=== PATIENT | male | born 1950 | race Hispanic/Latino ===

== ENCOUNTER → 2019-03-16 | Emergency (ER) | payer SELFPAY ==
[~2019-03-16] VITALS: Ht 175.3 cm; Wt 96.2 kg
[~2019-03-16] MED LIST: KETOROLAC TROMETHAMINE 30 MG/ML VIAL IV ONE; LEVOFLOXACIN 500 MG TAB PO ONE; MEROPENEM 1GM 100 ML IV STA; MORPHINE SULFATE 2 MG/ML SYR 1ML IV STA; MORPHINE SULFATE INJ 4 MG/ML INJ 1ML IV ONE; ONDANSETRON HCL INJ 2MG/ML 2ML 2 MG/ML VIAL IV ONE; SODIUM CHLORIDE 0.9% 500ML 500 ML IV ONE
[2019-03-16 12:29] LABS: BASOPHILS % 0.3 % (0.0-1.0); EOSINOPHILS # (AUTO) 0.1 (0.0-0.4); EOSINOPHILS % 0.8 % (0.0-6.0); HEMATOCRIT 38.5 % (38.2-49.6); HEMOGLOBIN 13.7 g/dL (14.0-18.0); LYMPHOCYTES # (AUTO) 1.8 (1.0-3.2); LYMPHOCYTES % 19.6 % (18.0-39.1); MEAN CORPUSCULAR HEMOGLOBIN 32.2 pg (28-32); MEAN CORPUSCULAR HGB CONC 35.6 g/dL (31-35); MEAN CORPUSCULAR VOLUME 90.4 fL (81-99); MONOCYTES # (AUTO) 0.9 (0.2-0.8); MONOCYTES % 9.3 % (4.4-11.3); NEUTROPHILS # (AUTO) 6.4 (2.1-6.9); NEUTROPHILS % 69.7 % (38.7-80.0); PLATELET COUNT 242 x10e3/uL (140-360); RED BLOOD COUNT 4.26 x10e6/uL (4.3-5.7); RED CELL DISTRIBUTION WIDTH 12.4 % (11.7-14.4)
[2019-03-16 12:30] LABS: BILIRUBIN,URINE NEGATIVE (NEGATIVE); CLARITY,URINE CLOUDY (CLEAR); COLOR,URINE YELLOW (YELLOW); KETONES,URINE NEGATIVE (NEGATIVE); LEUKOCYTE ESTERASE ,URINE NEGATIVE (NEGATIVE); NITRITE,URINE NEGATIVE (NEGATIVE); PROTEIN,URINE DIPSTICK TRACE (NEGATIVE); URINE UROBILINOGEN 0.2 mg/dL (0.2 - 1)
[2019-03-16 12:47] LABS: BACTERIA,URINE MODERATE /HPF; EPITHELIAL CELLS,URINE MODERATE /LPF; RBC,URINE >50 /HPF (0-5); WBC,URINE (MAN) 21-50 /HPF (0-5)
[2019-03-16 12:48] LABS: ALANINE AMINOTRANSFERASE 17 IU/L (0-55); ALBUMIN 4.2 g/dL (3.5-5.0); ALBUMIN/GLOBULIN RATIO 1.3 (0.8-2.0); ALKALINE PHOSPHATASE 69 IU/L (40-150); ANION GAP 13.7 mmol/L (8-16); BLOOD UREA NITROGEN 11 mg/dL (7-26); BUN/CREATININE RATIO 12 (6-25); CALCIUM 9.8 mg/dL (8.4-10.2); CARBON DIOXIDE 25 mmol/L (22-29); CHLORIDE 103 mmol/L (98-107); CREATININE, SERUM 0.95 mg/dL (0.72-1.25); EST GLOMERULAR FILTRATION RATE > 60 ML/MIN (60-); GLUCOSE 126 mg/dL (74-118); POTASSIUM 3.7 mmol/L (3.5-5.1); SODIUM 138 mmol/L (136-145)
--- NOTE | 2019-03-16 14:02 | Diagnostic Imaging Report ---
CT of the abdomen and pelvis History: Right flank pain Comparison: None available. Technique: Multidetector CT scanning of the abdomen and pelvis was performed from the level of the lung bases to the inferior pubic ramus without contrast. DOSE REDUCTION: The examination was performed according to departmental dose-optimization program which includes automated exposure control, adjustment of the mA and/or kV according to patient size and/or use of iterative reconstruction technique. Discussion: The lung bases are clear. Lack of IV contrast limits evaluation of solid and hollow visceral organs. In the right hepatic lobe there is a 8 mm hypodensity which is too small to characterize but is most likely a cyst. No suspicious hepatic lesions are identified. The gallbladder is present nondistended. No radiopaque gallstones are identified. There is no intrahepatic or extrahepatic biliary dilatation. The spleen is within normal limits. The bilateral adrenal glands are unremarkable. There is no pancreatic ductal dilatation or peripancreatic inflammatory stranding. The kidneys are normal in size. No kidney stones are identified. There is no hydroureteronephrosis bilaterally. The stomach, small, and large bowel are nondistended. There is no evidence of obstruction. The appendix is normal in caliber. Scattered diverticula are present throughout the colon. There is no evidence of acute diverticulitis. There is no free intraperitoneal air or ascites. The abdominal aorta is of normal course and caliber. No enlarged abdominal or retroperitoneal lymph nodes are identified. The urinary bladder is within normal limits. The prostate is not enlarged. Multilevel degenerative changes of the thoracolumbar spine which are most pronounced at L4-L5 where there is grade 1 anterolisthesis of L4 on L5. IMPRESSION: 1. No evidence of nephroureterolithiasis. 2. Normal appendix. 3. Colonic diverticulosis without evidence of acute diverticulitis. Signed by: Sachin Putnam MD on 03/16/2019 1:59 PM
--- NOTE | 2019-03-16 15:14 | NUR ---
upon entering pt's room; pt stood up, said"i'm done with you people. you took too fucking long."pulled his iv out intact, threw it on the bed and walked out. Addendum: 03/16/19 at 1524 by JOSÉ pt's stated, "he's really pissed off 'cause it took so long, does he get any rx or paperwork?" she then stormed out of the room p her . charge nurse/dr. rickie cuellar
--- NOTE | 2019-03-19 15:53 | NUR ---
PATIENT CAME IN REQUESTING PAPER WORK FROM DISCHARGE. DIRECTED HIM TO MEDICAL RECORDS
== END | disposition home or self-care (01) ==
LOC: ER 11:18
DX: R10.31 Right lower quadrant pain (principal); R11.0 Nausea; R31.29 Other microscopic hematuria; N10 Acute pyelonephritis; N12 Tubulo-interstitial nephritis, not specified as acute or chronic; N39.0 Urinary tract infection, site not specified
CPT/HCPCS: 36415; 74176; 80053; 81001; 85025; 87086; 99284; J1885; J2270; J2405; J7040

== ENCOUNTER → 2019-03-24 | Outpatient (CLI) | payer MEDICARE ==
[~2019-03-24] MED LIST changes: +IOPAMIDOL 370 MG/ML 200 ML INFUS..BTL INJ ONE; -KETOROLAC TROMETHAMINE 30 MG/ML VIAL IV ONE; -LEVOFLOXACIN 500 MG TAB PO ONE; -MEROPENEM 1GM 100 ML IV STA; -MORPHINE SULFATE 2 MG/ML SYR 1ML IV STA; -MORPHINE SULFATE INJ 4 MG/ML INJ 1ML IV ONE; -ONDANSETRON HCL INJ 2MG/ML 2ML 2 MG/ML VIAL IV ONE; -SODIUM CHLORIDE 0.9% 500ML 500 ML IV ONE; +SODIUM CHLORIDE 0.9% 50ML 50 ML ONE
--- NOTE | 2019-03-24 16:10 | Diagnostic Imaging Report ---
HISTORY: Spermatocele of epididymis, right testicular pain COMPARISON : COMMENT : Ultrasound examination of the genitalia was performed. In addition, Color Doppler and spectral analysis of the testicles were also obtained. There are no prior films available for comparison. The right epididymal head measures 1.3 x 1.0 x 1.1 cm and contains a 0.3 x 0.3 x 0.3 cm epididymal head cyst. The right testis measures 4.6 x 1.9 x 3.2 cm and appears unremarkable. The testicle is homogeneous in echotexture. Normal flow is identified on color Doppler. The left epididymal head measures 1.2 x 0.7 x 1.2 cm mm and appears unremarkable. The left testis measures 4.0 x 2.0 x 3.1 cm and appears unremarkable. The testicles homogeneous in echotexture. Normal flow is identified on color Doppler. There is no evidence of varicoceles. Small bilateral hydroceles are present. IMPRESSION : 1. Right epididymal head cyst. 2. Small bilateral hydroceles. Signed by: Sachin Putnam MD on 03/24/2019 4:07 PM
--- NOTE | 2019-03-24 16:40 | Diagnostic Imaging Report ---
CT of the abdomen and pelvis History: Renal mass Comparison: CT dated 03/16/2019. Technique: Multidetector CT scanning of the abdomen and pelvis was performed from the level of the lung bases to the inferior pubic ramus, without and with IV contrast. Scanning during the noncontrast, arterial, venous, and delayed phases was performed. Renal mass protocol was utilized. DOSE REDUCTION: The examination was performed according to departmental dose-optimization program which includes automated exposure control, adjustment of the mA and/or kV according to patient size and/or use of iterative reconstruction technique. Discussion: The lung bases demonstrate minimal dependent atelectasis. An 8 mm cyst is identified in the right hepatic lobe. No suspicious hepatic lesions are identified. The gallbladder is nondistended. No gallstones are identified. There is no intrahepatic or extrahepatic ductal dilatation. The spleen is within normal limits. The lateral adrenal glands are unremarkable. The pancreas is normal in attenuation and enhances homogeneously. The pancreatic ductal dilatation is present. The kidneys are normal in size. The upper pole of the right kidney demonstrates decreased enhancement which may be secondary to an ischemic insult. On delayed phase images there is a paucity of contrast excretion from the upper pole of the right kidney. The lower pole of the kidney excretes contrast normally. There are no kidney stones. There is no right-sided hydronephrosis. The left kidney demonstrates normal enhancement and excretion. There is a 1.5 x 1.5 cm exophytic cyst arising from the lower pole of the left kidney. There are no kidney stones. There is no left-sided hydroureteronephrosis. No filling defects are identified along the course of either ureter. The abdominal aorta is of normal course and caliber. The celiac, SMA, and FAWN are patent. There is a single right renal artery is normal caliber. The left kidney is supplied by a normal caliber main renal artery and a small caliber accessory renal artery. No filling defects are identified in either renal artery. There is no evidence of renal artery stenosis. The stomach, small, and large bowel are nondistended. There is no evidence of obstruction. The appendix is normal. There are scattered colonic diverticula without evidence of acute diverticulitis. The urinary bladder is within normal limits. The prostate is not enlarged. There are no acute osseous abnormalities. Multilevel degenerative changes of the thoracolumbar spine are present. IMPRESSION: 1. Decreased perfusion of the upper pole of the right kidney which may be secondary to an ischemic/embolic insult. No filling defect is identified within the renal arteries. 2. No renal mass is identified in either kidney. 3. Left renal cyst. Signed by: Sachin Putnam MD on 03/24/2019 4:36 PM
== END ==
LOC: US 09:21
PROVIDERS: ATTEND Urology
DX: N43.40 Spermatocele of epididymis, unspecified (principal); D41.02 Neoplasm of uncertain behavior of left kidney
CPT/HCPCS: 74178; 76870; 93976; Q9967

== ENCOUNTER → 2019-05-17 | Outpatient (CLI) | payer MEDICARE ==
[~2019-05-17] MED LIST changes: +GADOBENATE DIMEGLUMINE 1 ML IV ONE; -IOPAMIDOL 370 MG/ML 200 ML INFUS..BTL INJ ONE
[2019-05-17 14:12] LABS: CREATININE, SERUM 1.36 mg/dL (0.72-1.25)
--- NOTE | 2019-05-19 10:54 | Diagnostic Imaging Report ---
MRI of the abdomen, with and without contrast, 05/17/2019. History: Left renal neoplasm. Comparison: CT 03/24/2019. Technique: Multiplanar, multisequence imaging of the abdomen was performed pre- and post-IV administration of gadolinium. Dynamic enhanced images of the kidneys were included. Discussion: The kidneys are normal in size and location bilaterally. There is no evidence of hydronephrosis. There is an approximately 4 cm ill-defined region of heterogeneity in the upper pole of the right kidney which on precontrast images is slightly hypointense on T1 and T2 weighted images but containing a 2 cm focus of hyperintensity, and postcontrast is heterogeneously hypointense compared to normal kidney on early and delayed phases. The renal artery is patent. A 1.5 cm oval circumscribed T1 hypointense T2 hyperintense nonenhancing cyst is seen arising from from the anterior aspect of the left kidney. No other lesions are seen within the left kidney. The liver, gallbladder, spleen, pancreas, and adrenal glands are normal in appearance. The visualized loops of bowel and osseous structures are normal. There is no evidence of adenopathy. IMPRESSION: 1. Simple benign exophytic left renal cyst. No follow-up recommended. 2..Right renal upper pole region of relatively hypovascular heterogeneous abnormal signal intensity. Although findings may be secondary to a combination of ischemic/embolic insult with a hemorrhagic cyst, an atypical infiltrating hypovascular neoplasm cannot be excluded. Consider renal ultrasound for further evaluation, short-term follow-up CT, or CT-guided biopsy of this region if there is high clinical suspicion. Signed by: Florentino Diaz on 05/19/2019 10:51 AM
== END ==
LOC: MRI 13:23
PROVIDERS: ATTEND Urology
DX: D41.02 Neoplasm of uncertain behavior of left kidney (principal)
CPT/HCPCS: 36415; 74183; 82565; 84520; A9577

== ENCOUNTER → 2019-05-26 | Outpatient (CLI) | payer MEDICARE ==
--- NOTE | 2019-05-26 15:09 | Diagnostic Imaging Report ---
Renal ultrasound, 05/26/2019. History: Right renal lesion. Comparison: MRI 05/17/2019, CT 03/24/2019. Discussion: Transverse and longitudinal images of the kidneys were obtained demonstrating normal renal sizes and echogenicities. There is no evidence of hydronephrosis or renal calculus. The right kidney measures 12.4 cm and the left kidney measures 11.8 cm in length. Renal cortex measures 2.7 and 2.0 cm respectively. An ill-defined heterogeneous hypoechoic area is noted in the right renal upper pole slightly distorting the renal sinus fat, measuring approximately 4 x 3.8 cm. This region is relatively hypovascular on color Doppler exam and corresponds to the area of abnormality identified on recent MRI and CT. An oval anechoic structure is seen arising from the lateral aspect of the left kidney measuring 2.1 x 1.5 x 1.8 cm. The urinary bladder is unremarkable. Bilateral ureteral jets are identified. Bladder volume measures 220 mL. There is no evidence of free fluid. IMPRESSION: 1. Ill-defined hypoechoic region in the right renal upper pole corresponding to the CT and MRI abnormalities. Renal neoplasm cannot be excluded. Recommend short-term follow-up scan or ultrasound-guided biopsy. Findings were discussed with the patient at the time of the exam. 2. Simple benign left renal cyst is noted. Signed by: Florentino Diaz on 05/26/2019 3:06 PM
== END ==
LOC: US 09:47
PROVIDERS: ATTEND Urology
DX: N28.9 Disorder of kidney and ureter, unspecified (principal)
CPT/HCPCS: 76770

== ENCOUNTER → 2019-06-30 | Outpatient (CLI) | payer MEDICARE ==
[~2019-06-30] MED LIST changes: +FENTANYL CITRATE/PF 100MCG/2 ML INJ ONE; -GADOBENATE DIMEGLUMINE 1 ML IV ONE; +MIDAZOLAM HCL 2 MG/2 ML VIAL ONE; -SODIUM CHLORIDE 0.9% 50ML 50 ML ONE
[2019-06-30 08:56] LABS: HEMOGLOBIN 13.3 g/dL (14.0-18.0)
[2019-06-30 09:08] LABS: INR 0.96; PROTHROMBIN TIME 13.4 seconds (11.9-14.5)
[2019-06-30 09:09] LABS: PARTIAL THROMBOPLASTIN TIME 40.6 seconds (23.8-35.5)
--- NOTE | 2019-06-30 13:32 | Diagnostic Imaging Report ---
PROCEDURE: Ultrasound-guided biopsy Procedural Personnel Attending physician(s): Riya Terrell MD Fellow physician(s): None Resident physician(s): None Advanced practice provider(s): None Pre-procedure diagnosis: Right renal mass Post-procedure diagnosis: Same Indication: Right renal mass on prior imaging Previous biopsy of same target (QCDR): No Additional clinical history: None Complications: No immediate complications. IMPRESSION: Ultrasound-guided biopsy of right upper renal mass. Plan: Specimen(s) sent for evaluation. PROCEDURE SUMMARY: - Percutaneous US-guided coaxial core needle biopsy - Additional procedure(s): None PROCEDURE DETAILS: Pre-procedure Reference imaging for biopsy target: None Consent: Informed consent for the procedure including risks, benefits and alternatives was obtained and time-out was performed prior to the procedure. Preparation: The site was prepared and draped using maximal sterile barrier technique including cutaneous antisepsis. Anesthesia/sedation Level of anesthesia/sedation: Moderate sedation (conscious sedation) Anesthesia/sedation administered by: Independent trained observer under attending supervision with continuous monitoring of the patient?s level of consciousness and physiologic status Total intra-service sedation time (minutes): 30 Imaging prior to biopsy The patient was positioned prone. Initial ultrasound was performed. Biopsy target: - Maximal diameter (cm): N/A - Location: Right upper kidney Other findings: None Biopsy Local anesthesia was administered. Under US guidance, the biopsy needle was advanced to the target and biopsy was performed. Coaxial needle: 17 gauge Core needle biopsy device: Kueski Core needle size: 18 gauge Number of core specimens: 3 Needle removal The biopsy needle was removed and a sterile dressing was applied. Tract embolization: None Imaging following biopsy Immediate post-biopsy ultrasound was performed. Post-biopsy imaging findings: No hematoma Additional Details Additional description of procedure: None Equipment details: None Specimens removed: Biopsy samples as detailed above Estimated blood loss (mL): Less than 10 Standardized report: [id number] Attestation Signer name: Riya Terrell MD I attest that I was present for the entire procedure. I reviewed the stored images and agree with the report as written. Signed by: Riya Terrell MD on 06/30/2019 1:29 PM
== END ==
LOC: CT 08:26
PROVIDERS: ATTEND Urology
DX: D41.01 Neoplasm of uncertain behavior of right kidney (principal)
CPT/HCPCS: 36415; 50200; 85014; 85049; 85610; 85730; 88305; J2250; J3010

== ENCOUNTER 2019-10-09 11:45 | Emergency (ER) | payer MEDICARE ==
[~2019-10-09] VITALS: Ht 175.3 cm; Wt 96.2 kg
[2019-10-09] MEDS ORDERED: SODIUM CHLORIDE 0.9% 1000ML 1,000 ML IV STA (12:26)
[2019-10-09] MEDS ORDERED: ONDANSETRON HCL INJ 2MG/ML 2ML 2 MG/ML VIAL IV STA (12:26)
[2019-10-09] MEDS ORDERED: MORPHINE SULFATE INJ 4 MG/ML INJ 1ML IV STA (12:26)
[2019-10-09 13:31] LABS: BASOPHILS % 0.5 % (0.0-1.0); EOSINOPHILS # (AUTO) 0.1 (0.0-0.4); EOSINOPHILS % 1.8 % (0.0-6.0); HEMATOCRIT 38.8 % (38.2-49.6); HEMOGLOBIN 12.8 g/dL (14.0-18.0); LYMPHOCYTES # (AUTO) 1.3 (1.0-3.2); LYMPHOCYTES % 21.3 % (18.0-39.1); MEAN CORPUSCULAR HEMOGLOBIN 29.8 pg (28-32); MEAN CORPUSCULAR VOLUME 90.4 fL (81-99); MONOCYTES # (AUTO) 0.5 (0.2-0.8); MONOCYTES % 8.3 % (4.4-11.3); NEUTROPHILS # (AUTO) 4.2 (2.1-6.9); NEUTROPHILS % 67.6 % (38.7-80.0); PLATELET COUNT 240 x10e3/uL (140-360); RED BLOOD COUNT 4.29 x10e6/uL (4.3-5.7); RED CELL DISTRIBUTION WIDTH 12.7 % (11.7-14.4)
[2019-10-09 13:42] LABS: INR 0.96; PROTHROMBIN TIME 13.3 seconds (11.9-14.5)
[2019-10-09 13:43] LABS: PARTIAL THROMBOPLASTIN TIME 36.3 seconds (23.8-35.5)
[2019-10-09 13:47] LABS: CLARITY,URINE SL CLOUDY (CLEAR); COLOR,URINE YELLOW (YELLOW); NITRITE,URINE NEGATIVE (NEGATIVE)
[2019-10-09 13:48] LABS: BACTERIA,URINE RARE /HPF; BILIRUBIN,URINE SMALL (NEGATIVE); EPITHELIAL CELLS,URINE RARE /LPF; KETONES,URINE NEGATIVE (NEGATIVE); LEUKOCYTE ESTERASE ,URINE TRACE (NEGATIVE); PROTEIN,URINE DIPSTICK >=300 (NEGATIVE); RBC,URINE 21-50 /HPF (0-5); URINE UROBILINOGEN 0.2 mg/dL (0.2 - 1)
[2019-10-09 13:51] LABS: ALBUMIN 4.2 g/dL (3.5-5.0); ALBUMIN/GLOBULIN RATIO 1.1 (0.8-2.0); ANION GAP 12.8 mmol/L (8-16); CALCIUM 10.1 mg/dL (8.4-10.2); CREATININE, SERUM 1.4 mg/dL (0.72-1.25); POTASSIUM 4.8 mmol/L (3.5-5.1)
[2019-10-09] MEDS ORDERED: SODIUM CHLORIDE 0.9% 250ML 250 ML ONE (14:02)
[2019-10-09] MEDS ORDERED: IOPAMIDOL 370 MG/ML 200 ML INFUS..BTL INJ ONE (14:02)
--- NOTE | 2019-10-09 15:56 | Diagnostic Imaging Report ---
EXAM: CT Abdomen and Pelvis WITHOUT and WITH intravenous contrast - Hematuria protocol INDICATION: Hematuria COMPARISON: Renal ultrasound 05/26/2019, CT abdomen and pelvis 03/24/2019, abdominal MRI of 05/17/2019 TECHNIQUE: Abdomen and pelvis were scanned utilizing a multidetector helical scanner from the lung base to the pubic symphysis before and after administration of IV contrast. Coronal and sagittal reformations were obtained. Hematuria protocol was used. Scan was performed prior to contrast administration and during portal venous phase. IV CONTRAST: 100 mL of Isovue 370 ORAL CONTRAST: Water COMPLICATIONS: None RADIATION DOSE: Total DLP: 1683 mGy*cm Dose modulation, iterative reconstruction, and/or weight based adjustment of the mA/kV was utilized to reduce the radiation dose to as low as reasonably achievable. FINDINGS: LOWER THORAX: 4 mm right lower lobe pulmonary nodule (axial image 17). HEPATOBILIARY: Heterogeneous hypodensity at the posterior dome of liver is new from prior cross sectional imaging. SPLEEN: No splenomegaly. PANCREAS: No focal masses or ductal dilatation. ADRENALS: No adrenal nodules. KIDNEYS/URETERS: No renal calculi. Hypoenhancing infiltrative process centered about the upper pole of the right kidney with heterogeneous appearance appears increased in size compared to the prior CT of 03/24/2019. PELVIC ORGANS/BLADDER: The prostate measures up to 4.7 x 4.2 x 4.5 cm (volume estimate 47cc) PERITONEUM / RETROPERITONEUM: New retroperitoneal lymphadenopathy measures up to 3.3 x 2.3cm (aortocaval, axial image 27) and 1.9 x 1.8 cm (immediately anterior to aorta, axial image 39). No free air or free fluid. VESSELS: Mild scattered athetotic calcifications of the nonaneurysmal abdominal aorta and major branches. GI TRACT: Mild diverticulosis. No CT evidence of diverticulitis. No abnormal bowel thickening. No bowel obstruction. Normal appendix. BONES AND SOFT TISSUES: No acute osseous injury. No suspicious lytic or blastic lesion. Grade 1 anterolisthesis at L4-5. IMPRESSION: Interval increase in size and heterogeneity of infiltrative process centered about the upper pole of the right kidney, concerning for malignancy. New retroperitoneal lymphadenopathy up to 3.3 x 2.3cm is concerning for metastasis. If prior biopsy was non-diagnostic, these nodes are amenable to percutaneous biopsy. Posterior dome of liver hypodensity is new compared to prior cross sectional imaging. Although incompletely characterized on this exam, this could also represent metastatic disease. Dedicated liver MRI would be useful for further characterization. Signed by: Riya Terrell MD on 10/09/2019 3:53 PM
--- NOTE | 2019-10-09 17:01 | Emergency Department Note ---
History of Present Illnes History of Present Illness Chief Complaint: Genitourinary History of Present Illness This is a 69 year old male PATIENT SENT BY DR WELLS FOR EVALUATION OF BLOOD IN URINE AND KIDNEY PAIN X 1 MONTH; PATIENT STATES THAT HE HAS BEEN SEEN BY DR WELLS, AND WAS TOLD HE NEEDED SURGERY. PATIENT STATES DR MAHMOOD OFFICE SENT HIM TO THE ER FOR EVALUATION. PATIENT RATES RIGHT FLANK PAIN 09/19. PATIENT APPEARS IN NO DISTRESS, RESP EVEN AND NONLABORED, AMBULATORY WITHOUT ASSISTANCE. Arrival Mode: Car Band Instrument Maker Required: No Onset (how long ago): month(s) Radiation: Reports non-radiation Severity: moderate Onset quality: gradual Timing of current episode: intermittent Progression: waxing and waning Chronicity: recurrent Context: Denies recent illness Relieving factors: none Exacerbating factors: none Associated symptoms: Reports denies other symptoms Treatments prior to arrival: none Past Medical/Family History Physician Review I have reviewed the patient's past medical and family history. Any updates have been documented here. Past Medical History Recent Fever: No Clinical Suspicion of Infectio: No New/Unexplained Change in Ment: No Past Medical History: Hypertension, Kidney Stones, Hyperlipedemia, Chronic Kidney Disease Past Surgical History: Back Surgery Social History Smoking Cessation: Never Smoker Counseling Performed: No Alcohol Use: None Any Illegal Drug Use: No TB Exposure/Symptoms: No Physically hurt or threatened: No Family History Family history of heart diseas: No Other Last Tetanus: UNK Any Pre-Existing Lines (PICC,: No Is patient up to date on immun: Yes Last Flu: OOD Last Pneumovax: NA Review of Systems Review of Systems Constitutional: Reports no symptoms EENTM: Reports no symptoms Cardiovascular: Reports no symptoms Respiratory: Reports no symptoms Gastrointestinal: Reports no symptoms Genitourinary: Reports as per HPI, Reports hematuria Musculoskeletal: Reports no symptoms Integumentary: Reports no symptoms Neurological: Reports no symptoms Psychological: Reports no symptoms Endocrine: Reports no symptoms Hematological/Lymphatic: Reports no symptoms Physical Exam Related Data Allergies: Coded Allergies: Penicillins (Verified Allergy, Unknown, 10/09/19) Triage Vital Signs Vital Signs Date Time Temp Pulse Resp B/P (MAP) Pulse Ox O2 Delivery O2 Flow Rate FiO2 10/09/19 12:12 98.4 73 18 143/85 97 Vital signs reviewed: Yes Physical Exam CONSTITUTIONAL Constitutional: Present well-developed, Present well-nourished HENT HENT: Present normocephalic, Present atraumatic, Present oropharynx clear/moist, Present nose normal HENT L/R: Present left ext ear normal, Present right ext ear normal EYES Eyes: Reports PERRL, Reports conjunctivae normal NECK Neck: Present ROM normal PULMONARY Pulmonary: Present effort normal, Present breath sounds normal CARDIOVASCULAR Cardiovascular: Present regular rhythm, Present heart sounds normal, Present capillary refill normal, Present normal rate GASTROINTESTINAL Abdominal: Present soft, Present nontender, Present bowel sounds normal GENITOURINARY Genitourinary: Present exam deferred SKIN Skin: Present warm, Present dry MUSCULOSKELETAL Musculoskeletal: Present ROM normal NEUROLOGICAL Neurological: Present alert, Present oriented x 3, Present no gross motor or sensory deficits PSYCHOLOGICAL Psychological: Present mood/affect normal, Present judgement normal Results Laboratory Result Diagram: 10/09/19 1300 10/09/19 1300 Laboratory Laboratory Tests Test 10/09/19 13:00 10/09/19 12:15 White Blood Count 6.16 x10e3/uL (4.8-10.8) Red Blood Count 4.29 x10e6/uL (4.3-5.7) Hemoglobin 12.8 g/dL (14.0-18.0) Hematocrit 38.8 % (38.2-49.6) Mean Corpuscular Volume 90.4 fL (81-99) Mean Corpuscular Hemoglobin 29.8 pg (28-32) Mean Corpuscular Hemoglobin Concent 33.0 g/dL (31-35) Red Cell Distribution Width 12.7 % (11.7-14.4) Platelet Count 240 x10e3/uL (140-360) Neutrophils (%) (Auto) 67.6 % (38.7-80.0) Lymphocytes (%) (Auto) 21.3 % (18.0-39.1) Monocytes (%) (Auto) 8.3 % (4.4-11.3) Eosinophils (%) (Auto) 1.8 % (0.0-6.0) Basophils (%) (Auto) 0.5 % (0.0-1.0) Neutrophils # (Auto) 4.2 (2.1-6.9) Lymphocytes # (Auto) 1.3 (1.0-3.2) Monocytes # (Auto) 0.5 (0.2-0.8) Eosinophils # (Auto) 0.1 (0.0-0.4) Basophils # (Auto) 0.0 (0.0-0.1) Absolute Immature Granulocyte (auto 0.03 x10e3/uL (0-0.1) Prothrombin Time 13.3 seconds (11.9-14.5) Prothromb Time International Ratio 0.96 Activated Partial Thromboplast Time 36.3 seconds (23.8-35.5) Sodium Level 137 mmol/L (136-145) Potassium Level 4.8 mmol/L (3.5-5.1) Chloride Level 103 mmol/L (98-107) Carbon Dioxide Level 26 mmol/L (22-29) Anion Gap 12.8 mmol/L (8-16) Blood Urea Nitrogen 15 mg/dL (7-26) Creatinine 1.40 mg/dL (0.72-1.25) Estimat Glomerular Filtration Rate 51 ML/MIN (60-) BUN/Creatinine Ratio 11 (6-25) Glucose Level 96 mg/dL (74-118) Calcium Level 10.1 mg/dL (8.4-10.2) Total Bilirubin 0.6 mg/dL (0.2-1.2) Aspartate Amino Transf (AST/SGOT) 23 IU/L (5-34) Alanine Aminotransferase (ALT/SGPT) 16 IU/L (0-55) Alkaline Phosphatase 111 IU/L (40-150) Total Protein 8.2 g/dL (6.5-8.1) Albumin 4.2 g/dL (3.5-5.0) Globulin 4.0 g/dL (2.3-3.5) Albumin/Globulin Ratio 1.1 (0.8-2.0) Urine Color Yellow (YELLOW) Urine Clarity Sl cloudy (CLEAR) Urine pH 6 (5 - 7) Urine Specific [place] 1.020 (1.010-1.025) Urine Protein >=300 (NEGATIVE) Urine Glucose (UA) Negative (NEGATIVE) Urine Ketones Negative (NEGATIVE) Urine Blood Large (NEGATIVE) Urine Nitrite Negative (NEGATIVE) Urine Bilirubin Small (NEGATIVE) Urine Urobilinogen 0.2 mg/dL (0.2 - 1) Urine Leukocyte Esterase Trace (NEGATIVE) Urine RBC 21-50 /HPF (0-5) Urine WBC 6-10 /HPF (0-5) Urine Epithelial Cells Rare /LPF (NONE) Urine Bacteria Rare /HPF (NONE) Lab results reviewed: Yes Imaging Imaging results reviewed: Yes Impressions Procedure: [id number] CT/CT ABDOMEN/PELVIS WOW Exam Date: 10/09/19 Exam Time: 1400 REPORT STATUS: Signed EXAM: CT Abdomen and Pelvis WITHOUT and WITH intravenous contrast - Hematuria protocol INDICATION: Hematuria COMPARISON: Renal ultrasound 05/26/2019, CT abdomen and pelvis 03/24/2019, abdominal MRI of 05/17/2019 TECHNIQUE: Abdomen and pelvis were scanned utilizing a multidetector helical scanner from the lung base to the pubic symphysis before and after administration of IV contrast. Coronal and sagittal reformations were obtained. Hematuria protocol was used. Scan was performed prior to contrast administration and during portal venous phase. IV CONTRAST: 100 mL of Isovue 370 ORAL CONTRAST: Water COMPLICATIONS: None RADIATION DOSE: Total DLP: 1683 mGy*cm Dose modulation, iterative reconstruction, and/or weight based adjustment of the mA/kV was utilized to reduce the radiation dose to as low as reasonably achievable. FINDINGS: LOWER THORAX: 4 mm right lower lobe pulmonary nodule (axial image 17). HEPATOBILIARY: Heterogeneous hypodensity at the posterior dome of liver is new from prior cross sectional imaging. SPLEEN: No splenomegaly. PANCREAS: No focal masses or ductal dilatation. ADRENALS: No adrenal nodules. KIDNEYS/URETERS: No renal calculi. Hypoenhancing infiltrative process centered about the upper pole of the right kidney with heterogeneous appearance appears increased in size compared to the prior CT of 03/24/2019. PELVIC ORGANS/BLADDER: The prostate measures up to 4.7 x 4.2 x 4.5 cm (volume estimate 47cc) PERITONEUM / RETROPERITONEUM: New retroperitoneal lymphadenopathy measures up to 3.3 x 2.3cm (aortocaval, axial image 27) and 1.9 x 1.8 cm (immediately anterior to aorta, axial image 39). No free air or free fluid. VESSELS: Mild scattered athetotic calcifications of the nonaneurysmal abdominal aorta and major branches. GI TRACT: Mild diverticulosis. No CT evidence of diverticulitis. No abnormal bowel thickening. No bowel obstruction. Normal appendix. BONES AND SOFT TISSUES: No acute osseous injury. No suspicious lytic or blastic lesion. Grade 1 anterolisthesis at L4-5. IMPRESSION: Interval increase in size and heterogeneity of infiltrative process centered about the upper pole of the right kidney, concerning for malignancy. New retroperitoneal lymphadenopathy up to 3.3 x 2.3cm is concerning for metastasis. If prior biopsy was non-diagnostic, these nodes are amenable to percutaneous biopsy. Posterior dome of liver hypodensity is new compared to prior cross sectional imaging. Although incompletely characterized on this exam, this could also represent metastatic disease. Dedicated liver MRI would be useful for further characterization. Signed by: Riya Terrell MD on 10/09/2019 3:53 PM Assessment & Plan Medical Decision Making MDM CHECK CBC, CHEM, UA, AND I SPOKE WITH DR WELLS - ELIZABETH HEMATURIA PROTOCOL CT ABD/PELVIS - R/O ANEMIA, ELECTROLYTE ABNL, RENAL INSUFF, UTI, RENAL MASS, STONE Reassessment Reassessment D/W DR WELLS AGAIN - DC HOME ON BACTRIM SS BID X 10 DAYS, F/U WITH HIM Assessment & Plan Final Impression: (1) Hematuria (2) UTI (urinary tract infection) Depart Disposition: HOME, SELF-CARE Last Vital Signs Date Time Temp Pulse Resp B/P (MAP) Pulse Ox O2 Delivery O2 Flow Rate FiO2 10/09/19 15:04 60 16 154/92 100 10/09/19 12:12 98.4 Medications in the ED Morphine Sulfate 4 mg ONCE STAT IV Last administered on 10/09/19at 14:59; Admin Dose 4 MG; Start 10/09/19 at 12:26; Stop 10/09/19 at 12:33; Status DC Ondansetron HCl 4 mg ONCE STAT IV Last administered on 10/09/19at 15:00; Admin Dose 4 MG; Start 10/09/19 at 12:26; Stop 10/09/19 at 12:33; Status DC Sodium Chloride 1,000 ml @ 0 mls/hr Q0M STAT IV Last administered on 10/09/19at 15:00; Admin Dose 1,000 MLS/HR; Start 10/09/19 at 12:26; Stop 10/09/19 at 12:29; Status DC Iopamidol 74,000 mg STK-MED ONCE INJ ; Start 10/09/19 at 14:02; Stop 10/09/19 at 13:57; Status DC Sodium Chloride 250 ml @ ud STK-MED ONCE .ROUTE ; Start 10/09/19 at 14:02; Stop 10/09/19 at 13:57; Status DC KEKE NIELSEN MD Oct 09, 2019 17:01
== END 2019-10-09 17:15 | disposition home or self-care (01) ==
LOC: ER 13:14
DX: N39.0 Urinary tract infection, site not specified (principal); R31.9 Hematuria, unspecified; N23 Unspecified renal colic; M54.5 Low back pain; N18.9 Chronic kidney disease, unspecified; I10 Essential (primary) hypertension; E78.5 Hyperlipidemia, unspecified
CPT/HCPCS: 36415; 74178; 80053; 81001; 85025; 85610; 85730; 87086; 99284; J2270; J2405; J7030; J7050; Q9967

== ENCOUNTER → 2019-10-23 | Outpatient (CLI) | payer MEDICARE, OTHER ==
[2019-10-23 12:53] LABS: HEMOGLOBIN 11.9 g/dL (14.0-18.0)
[2019-10-23 13:00] LABS: INR 1.08; PROTHROMBIN TIME 14.7 seconds (11.9-14.5)
[2019-10-23 13:01] LABS: PARTIAL THROMBOPLASTIN TIME 37.9 seconds (23.8-35.5)
--- NOTE | 2019-10-23 16:11 | Diagnostic Imaging Report ---
PROCEDURE: CT-guided biopsy Procedural Personnel Attending physician(s): Riya Terrell MD Fellow physician(s): None Resident physician(s): None Advanced practice provider(s): None Pre-procedure diagnosis: Retroperitoneal lymphadenopathy, renal mass Post-procedure diagnosis: Same Indication: Histopathologic diagnosis Previous biopsy of same target (QCDR): No Additional clinical history: None Complications: No immediate complications. IMPRESSION: CT-guided biopsy of right retroperitoneal lymphadenopathy. Plan: Specimen(s) sent for evaluation. PROCEDURE SUMMARY: - Percutaneous CT-guided core needle and fine needle aspiration biopsy biopsy - Additional procedure(s): None PROCEDURE DETAILS: Pre-procedure Reference imaging for biopsy target: CT abdomen/pelvis 10/09/2019 Consent: Informed consent for the procedure including risks, benefits and alternatives was obtained and time-out was performed prior to the procedure. Preparation: The site was prepared and draped using maximal sterile barrier technique including cutaneous antisepsis. Anesthesia/sedation Level of anesthesia/sedation: Moderate sedation (conscious sedation) 1mg Versed, 50mcg Fentanyl Anesthesia/sedation administered by: Independent trained observer under attending supervision with continuous monitoring of the patient?s level of consciousness and physiologic status Total intra-service sedation time (minutes): 30 Imaging prior to biopsy The patient was positioned prone. Initial imaging was performed using noncontrast CT. Biopsy target: - Maximal diameter (cm): 3.5 - Location: Right retroperitoneal Other findings: None Biopsy Local anesthesia was administered. Under CT guidance, the biopsy needle was advanced to the target and biopsy was performed. Coaxial needle: 17 gauge Core needle biopsy device: [employer] Core needle size: 18 gauge Number of core specimens: 4 Fine needle aspiration device: Chiba Fine needle size: 22g Number of FNA specimens: 3 On-site biopsy touch preparation: Yes Additional sampling recommendations: None Preliminary assessment of sample adequacy: Adequate Needle removal The biopsy needle was removed and a sterile dressing was applied. Tract embolization: None Imaging following biopsy Immediate post-biopsy imaging was performed using noncontrast CT. Post-biopsy imaging findings: No hematoma Contrast Contrast agent: None Contrast volume (mL): [address] dose length product (mGy-cm): 1499 Additional Details Additional description of procedure: None Equipment details: None Specimens removed: Biopsy samples as detailed above Estimated blood loss (mL): Less than 10 Standardized report: [email or web address] Attestation Signer name: Riya Terrell MD I attest that I was present for the entire procedure. I reviewed the stored images and agree with the report as written. Signed by: Riya Terrell MD on 10/23/2019 4:07 PM
== END ==
LOC: CT 12:23
PROVIDERS: ATTEND Urology
DX: D41.01 Neoplasm of uncertain behavior of right kidney (principal)
CPT/HCPCS: 10009; 36415; 38505; 85014; 85049; 85610; 85730; 88172; 88173; 88305; 88342; J2250; J3010; U0002; 88304; 99152

== ENCOUNTER 2019-10-28 01:24 | Observation (INO) | payer MEDICARE, OTHER ==
[~2019-10-28] VITALS: Ht 175.3 cm; Wt 96.2 kg
[2019-10-28] VITALS (8 sets, daily range): BP systolic 105–143; BP diastolic 66–79
[2019-10-28] MEDS ORDERED: LIDOCAINE JELLY 2% 10ML URO-JET ONE (01:57)
[2019-10-28] MEDS ORDERED: LIDOCAINE JELLY 2% 10ML URO-JET TOP ONE (02:00)
[2019-10-28 02:15] LABS: BASOPHILS % 0.3 % (0.0-1.0); EOSINOPHILS # (AUTO) 0.1 (0.0-0.4); EOSINOPHILS % 1.2 % (0.0-6.0); HEMATOCRIT 28.4 % (38.2-49.6); HEMOGLOBIN 9.6 g/dL (14.0-18.0); LYMPHOCYTES # (AUTO) 0.8 (1.0-3.2); LYMPHOCYTES % 10.9 % (18.0-39.1); MEAN CORPUSCULAR HEMOGLOBIN 29.7 pg (28-32); MEAN CORPUSCULAR HGB CONC 33.8 g/dL (31-35); MEAN CORPUSCULAR VOLUME 87.9 fL (81-99); MONOCYTES # (AUTO) 0.6 (0.2-0.8); MONOCYTES % 7.4 % (4.4-11.3); NEUTROPHILS % 79.7 % (38.7-80.0); PLATELET COUNT 254 x10e3/uL (140-360); RED BLOOD COUNT 3.23 x10e6/uL (4.3-5.7); RED CELL DISTRIBUTION WIDTH 11.9 % (11.7-14.4)
[2019-10-28 02:16] LABS: BILIRUBIN,URINE SMALL (NEGATIVE); CLARITY,URINE CLOUDY (CLEAR); COLOR,URINE RED (YELLOW); KETONES,URINE NEGATIVE (NEGATIVE); LEUKOCYTE ESTERASE ,URINE NEGATIVE (NEGATIVE); NITRITE,URINE NEGATIVE (NEGATIVE); PROTEIN,URINE DIPSTICK >=300 (NEGATIVE); URINE UROBILINOGEN 0.2 mg/dL (0.2 - 1)
[2019-10-28 02:21] LABS: BACTERIA,URINE FEW /HPF; EPITHELIAL CELLS,URINE RARE /LPF; RBC,URINE >50 /HPF (0-5)
[2019-10-28 02:24] LABS: PROTHROMBIN TIME 13.8 seconds (11.9-14.5)
[2019-10-28 02:25] LABS: PARTIAL THROMBOPLASTIN TIME 45.7 seconds (23.8-35.5)
--- NOTE | 2019-10-28 02:28 | NUR ---
625 mL noted with catheter insertion
--- NOTE | 2019-10-28 02:29 | Emergency Department Note ---
History of Present Illnes History of Present Illness Chief Complaint: Genitourinary History of Present Illness This is a 69 year old male states he has not urinated since about 10am. States he has been having blood clots when urinating since May. Patient to have right nephrectomy here in november, dr barton is pt's urologist . Historian: Patient Arrival Mode: Car Onset (how long ago): hour(s) (15) Location: lower abd Quality: suprapubic pain, unable to urinate since 10 am Radiation: Reports non-radiation Severity: moderate Onset quality: gradual Duration (how long): month(s) (5) Timing of current episode: intermittent Progression: worsening Chronicity: recurrent Context: Denies recent illness, Denies recent surgery Relieving factors: none Exacerbating factors: none Associated symptoms: Reports denies other symptoms Treatments prior to arrival: none Past Medical/Family History Physician Review I have reviewed the patient's past medical and family history. Any updates have been documented here. Past Medical History Recent Fever: No Clinical Suspicion of Infectio: No New/Unexplained Change in Ment: No Past Medical History: Hypertension, Kidney Stones, Hyperlipedemia, Chronic Kidney Disease Past Surgical History: Back Surgery Social History Smoking Cessation: Never Smoker Alcohol Use: None Any Illegal Drug Use: No Family History Family history of heart diseas: No Other family history htn Other Last Tetanus: UNK Review of Systems Review of Systems Constitutional: Reports no symptoms EENTM: Reports no symptoms Cardiovascular: Reports no symptoms Respiratory: Reports no symptoms Gastrointestinal: Reports no symptoms Genitourinary: Reports as per HPI Musculoskeletal: Reports no symptoms Integumentary: Reports no symptoms Neurological: Reports no symptoms Psychological: Reports no symptoms Endocrine: Reports no symptoms Hematological/Lymphatic: Reports no symptoms Physical Exam Related Data Allergies: Coded Allergies: No Known Allergies (Unverified , 10/23/19) Triage Vital Signs Vital Signs Date Time Temp Pulse Resp B/P (MAP) Pulse Ox O2 Delivery O2 Flow Rate FiO2 10/28/19 02:18 99.1 95 20 133/86 95 Room Air Vital signs reviewed: Yes Physical Exam CONSTITUTIONAL Constitutional: Present well-developed, Present well-nourished HENT HENT: Present normocephalic, Present atraumatic, Present oropharynx clear/moist, Present nose normal HENT L/R: Present left ext ear normal, Present right ext ear normal EYES Eyes: Reports PERRL, Reports conjunctivae normal NECK Neck: Present ROM normal PULMONARY Pulmonary: Present effort normal, Present breath sounds normal CARDIOVASCULAR Cardiovascular: Present regular rhythm, Present heart sounds normal, Present capillary refill normal, Present normal rate GASTROINTESTINAL Abdominal: Present soft, Present bowel sounds normal, Present tender (suprapubic tenderness with distended bladder noted on exam) GENITOURINARY Genitourinary: Present exam deferred SKIN Skin: Present warm, Present dry MUSCULOSKELETAL Musculoskeletal: Present ROM normal NEUROLOGICAL Neurological: Present alert, Present oriented x 3, Present no gross motor or sensory deficits PSYCHOLOGICAL Psychological: Present mood/affect normal, Present judgement normal Results Laboratory Result Diagram: 10/28/19 0208 Laboratory Laboratory Tests Test 10/28/19 02:08 White Blood Count 7.52 x10e3/uL (4.8-10.8) Red Blood Count 3.23 x10e6/uL (4.3-5.7) Hemoglobin 9.6 g/dL (14.0-18.0) Hematocrit 28.4 % (38.2-49.6) Mean Corpuscular Volume 87.9 fL (81-99) Mean Corpuscular Hemoglobin 29.7 pg (28-32) Mean Corpuscular Hemoglobin Concent 33.8 g/dL (31-35) Red Cell Distribution Width 11.9 % (11.7-14.4) Platelet Count 254 x10e3/uL (140-360) Neutrophils (%) (Auto) 79.7 % (38.7-80.0) Lymphocytes (%) (Auto) 10.9 % (18.0-39.1) Monocytes (%) (Auto) 7.4 % (4.4-11.3) Eosinophils (%) (Auto) 1.2 % (0.0-6.0) Basophils (%) (Auto) 0.3 % (0.0-1.0) Neutrophils # (Auto) 6.0 (2.1-6.9) Lymphocytes # (Auto) 0.8 (1.0-3.2) Monocytes # (Auto) 0.6 (0.2-0.8) Eosinophils # (Auto) 0.1 (0.0-0.4) Basophils # (Auto) 0.0 (0.0-0.1) Absolute Immature Granulocyte (auto 0.04 x10e3/uL (0-0.1) Prothrombin Time 13.8 seconds (11.9-14.5) Prothromb Time International Ratio 1.00 Activated Partial Thromboplast Time 45.7 seconds (23.8-35.5) Urine Color Red (YELLOW) Urine Clarity Cloudy (CLEAR) Urine pH 5.5 (5 - 7) Urine Specific [place] 1.020 (1.010-1.025) Urine Protein >=300 (NEGATIVE) Urine Glucose (UA) Negative (NEGATIVE) Urine Ketones Negative (NEGATIVE) Urine Blood Large (NEGATIVE) Urine Nitrite Negative (NEGATIVE) Urine Bilirubin Small (NEGATIVE) Urine Urobilinogen 0.2 mg/dL (0.2 - 1) Urine Leukocyte Esterase Negative (NEGATIVE) Urine RBC >50 /HPF (0-5) Urine WBC 6-10 /HPF (0-5) Urine Epithelial Cells Rare /LPF (NONE) Urine Bacteria Few /HPF (NONE) Sodium Level 134 mmol/L (136-145) Potassium Level 3.8 mmol/L (3.5-5.1) Chloride Level 104 mmol/L (98-107) Carbon Dioxide Level 20 mmol/L (22-29) Anion Gap 13.8 mmol/L (8-16) Blood Urea Nitrogen 19 mg/dL (7-26) Creatinine 1.20 mg/dL (0.72-1.25) Estimat Glomerular Filtration Rate 60 ML/MIN (60-) BUN/Creatinine Ratio 16 (6-25) Glucose Level 135 mg/dL (74-118) Calcium Level 8.7 mg/dL (8.4-10.2) Total Bilirubin 0.3 mg/dL (0.2-1.2) Aspartate Amino Transf (AST/SGOT) 21 IU/L (5-34) Alanine Aminotransferase (ALT/SGPT) 18 IU/L (0-55) Alkaline Phosphatase 108 IU/L (40-150) Total Protein 7.4 g/dL (6.5-8.1) Albumin 3.3 g/dL (3.5-5.0) Globulin 4.1 g/dL (2.3-3.5) Albumin/Globulin Ratio 0.8 (0.8-2.0) Laboratory Tests Test 10/28/19 02:08 White Blood Count 7.52 x10e3/uL (4.8-10.8) Red Blood Count 3.23 x10e6/uL (4.3-5.7) Hemoglobin 9.6 g/dL (14.0-18.0) Hematocrit 28.4 % (38.2-49.6) Mean Corpuscular Volume 87.9 fL (81-99) Mean Corpuscular Hemoglobin 29.7 pg (28-32) Mean Corpuscular Hemoglobin Concent 33.8 g/dL (31-35) Red Cell Distribution Width 11.9 % (11.7-14.4) Platelet Count 254 x10e3/uL (140-360) Neutrophils (%) (Auto) 79.7 % (38.7-80.0) Lymphocytes (%) (Auto) 10.9 % (18.0-39.1) Monocytes (%) (Auto) 7.4 % (4.4-11.3) Eosinophils (%) (Auto) 1.2 % (0.0-6.0) Basophils (%) (Auto) 0.3 % (0.0-1.0) Neutrophils # (Auto) 6.0 (2.1-6.9) Lymphocytes # (Auto) 0.8 (1.0-3.2) Monocytes # (Auto) 0.6 (0.2-0.8) Eosinophils # (Auto) 0.1 (0.0-0.4) Basophils # (Auto) 0.0 (0.0-0.1) Absolute Immature Granulocyte (auto 0.04 x10e3/uL (0-0.1) Urine Color Red (YELLOW) Urine Clarity Cloudy (CLEAR) Urine pH 5.5 (5 - 7) Urine Specific [place] 1.020 (1.010-1.025) Urine Protein >=300 (NEGATIVE) Urine Glucose (UA) Negative (NEGATIVE) Urine Ketones Negative (NEGATIVE) Urine Blood Large (NEGATIVE) Urine Nitrite Negative (NEGATIVE) Urine Bilirubin Small (NEGATIVE) Urine Urobilinogen 0.2 mg/dL (0.2 - 1) Urine Leukocyte Esterase Negative (NEGATIVE) Urine RBC >50 /HPF (0-5) Urine WBC 6-10 /HPF (0-5) Urine Epithelial Cells Rare /LPF (NONE) Urine Bacteria Few /HPF (NONE) Imaging Imaging results reviewed: Yes Impressions ct abd/pelvis MPRESSION: 1. No renal or ureteral calculi. No left hydronephrosis or obstruction. 2. Infiltrating mass involving the superior and mid aspects of the right kidney, best visualized on prior CT abdomen and pelvis 10/09/2019, which extends into the right renal sinus and renal pelvis. Given the infiltrative nature, renal lymphoma is a primary consideration. RCC or urothelial malignancy are secondary considerations. 3. Interval increase in size of ill-defined 6.7 cm mass in the hepatic dome, likely reflecting metastatic disease. 4. Enlarged retrocaval adenopathy, likely metastatic. 5. Stable indeterminate 4 mm pulmonary nodule in the right lower lobe. Signed by: Dr. Christopher Funk M.D. on 10/28/2019 3:42 AM Assessment & Plan Medical Decision Making MDM pt with hematuria since May, unable to urinate since 10 am, i spoke with dr barton, he wants a 20 nepali catheter placed and to have labs and a ct abd/pelvis ordered cbc, cmp, pt/ptt, ua, ct abd/pelvis ordered to eval for anemia, uti, electrolyte abnormality, renal mass, reyes place by rn , 625 cc bloody urine output, no clots noted. i spoke with dr sánchez and dr barton admit to obs to follow hgb. Reassessment Reassessment time: 04:11 Reassessment pt's hemoglobin has dropped over 2 grams over past 5 days. Assessment & Plan Final Impression: (1) Renal mass (2) Urinary retention (3) Hematuria Depart Disposition: ADMITTED Last Vital Signs Date Time Temp Pulse Resp B/P (MAP) Pulse Ox O2 Delivery O2 Flow Rate FiO2 10/28/19 02:18 99.1 95 20 133/86 95 Room Air Medications in the ED Lidocaine HCl 10 ml ONCE ONCE TOP Last administered on 10/28/19at 02:10; Admin Dose 10 ML; Start 10/28/19 at 02:00; Stop 10/28/19 at 02:01; Status DC Lidocaine HCl 10 ml STK-MED ONCE .ROUTE ; Start 10/28/19 at 01:57; Stop 10/28/19 at 01:51; Status DC VIOLA DALEY MD Oct 28, 2019 02:29
[2019-10-28 02:33] LABS: ALBUMIN 3.3 g/dL (3.5-5.0); ALBUMIN/GLOBULIN RATIO 0.8 (0.8-2.0); ANION GAP 13.8 mmol/L (8-16); CALCIUM 8.7 mg/dL (8.4-10.2); CREATININE, SERUM 1.2 mg/dL (0.72-1.25); POTASSIUM 3.8 mmol/L (3.5-5.1)
--- NOTE | 2019-10-28 03:45 | Diagnostic Imaging Report ---
EXAMINATION: CT of the abdomen and pelvis without contrast. TECHNIQUE: Spiral CT images of the abdomen and pelvis were performed from the lung bases to the lesser trochanters. No intravenous contrast was given per renal stone protocol. Coronal and sagittal reformatted images were obtained. COMPARISON: CT abdomen and pelvis 10/09/2019 CLINICAL HISTORY:Difficulty urinating, hematuria DISCUSSION: ABSENCE OF INTRAVENOUS CONTRAST DECREASES SENSITIVITY FOR DETECTION OF FOCAL LESIONS AND VASCULAR PATHOLOGY. ABDOMEN/PELVIS: LOWER THORAX: Stable 4 mm pulmonary nodule in the right lower lobe (series 3, image 3). Mild atherosclerotic calcification of the aortic valves. HEPATOBILIARY: Interval increase in size of ill-defined 6.4 x 6.7 x 3.6 cm hypodense solid mass in the hepatic dome involving segments VIII and likely IV (series 3, image 15), which previously measured approximately 5.2 x 3.6 x 3.6 cm. Stable 9 mm fluid density lesion in hepatic segment IV (series 3, image 31), likely representing a cyst. No intra or extrahepatic biliary ductal dilation. GALLBLADDER: No radio-opaque stones or sludge. No wall thickening. SPLEEN: Stable mild splenomegaly, measuring 13.3 cm in AP diameter. PANCREAS: No focal masses or ductal dilatation. ADRENALS: No adrenal nodules. KIDNEYS/URETERS: Ill-defined contour abnormality involving the superior and mid aspects of the right kidney (series 3, image 61), in area of previously visualized infiltrative mass on CT dated 10/09/2019 (series 3, image 61). This mass extends into the right renal sinus and renal pelvis Stable on 0.5 cm exophytic fluid density simple cyst in the mid to inferior left kidney (series 3, image 89). No ureteral or renal calculi. No left hydronephrosis or evidence of obstruction. Bilateral renal perinephric stranding, right greater than left. PELVIC ORGANS/BLADDER: Bladder is decompressed and there is a Brand catheter in place. No definite focal lesions. PERITONEUM/RETROPERITONEUM: No free air or fluid. LYMPH NODES: No interval change in enlarged retrocaval nodes which measure 2.1 cm in short axis (series 3, image 55) and 2.5 cm in short axis (series 3, image 65). Stable enlarged aortocaval node which measures 1.3 cm in short axis (series 3, image 62). No other retroperitoneal or any intra-abdominal, pelvic or inguinal adenopathy.. VESSELS: Mild atherosclerotic calcification of the abdominal aorta. GI TRACT: No bowel dilation or evidence of obstruction. No pericolonic inflammatory changes. Scattered diverticula in the distal descending and sigmoid colon without diverticulitis. Appendix is normal. BONES AND SOFT TISSUES: No aggressive lytic or suspicious focal sclerotic lesions. Multilevel degenerative disks in the lower thoracic and lumbosacral spine, worse at L4-L5 and L5-S1, with grade 1 anterolisthesis of L4 on L5. Bilateral L4-L5 facet hypertrophy with moderate canal stenosis at L4-L5 and L5-S1. Soft tissues are grossly unremarkable. IMPRESSION: 1. No renal or ureteral calculi. No left hydronephrosis or obstruction. 2. Infiltrating mass involving the superior and mid aspects of the right kidney, best visualized on prior CT abdomen and pelvis 10/09/2019, which extends into the right renal sinus and renal pelvis. Given the infiltrative nature, renal lymphoma is a primary consideration. RCC or urothelial malignancy are secondary considerations. 3. Interval increase in size of ill-defined 6.7 cm mass in the hepatic dome, likely reflecting metastatic disease. 4. Enlarged retrocaval adenopathy, likely metastatic. 5. Stable indeterminate 4 mm pulmonary nodule in the right lower lobe. Signed by: Dr. Christopher Funk M.D. on 10/28/2019 3:42 AM
[2019-10-28] MEDS ORDERED: SODIUM CHLORIDE FLUSH 10 ML SYR INJ PRN (04:30)
[2019-10-28] MEDS ORDERED: ONDANSETRON HCL INJ 2MG/ML 2ML 2 MG/ML VIAL IV PRN (04:30)
[2019-10-28] MEDS: ACETAMINOPHEN/CODEINE 300MG - 30MG TAB PO PRN ×5 (05:04→23:17)
[2019-10-28] MEDS ORDERED: ATORVASTATIN CA10 MG PO (05:39)
[2019-10-28] MEDS ORDERED: FLOMAX0.4 MG PO (05:39)
[2019-10-28] MEDS ORDERED: LOSARTAN POTAS100 MG PO (05:39)
--- NOTE | 2019-10-28 06:24 | NUR ---
DR. HEARN DOING ROUNDS. NEW ORDER RECEIVED TO CONTINUE HOME MEDS
[2019-10-28 06:35] LABS: HEMATOCRIT 27.3 % (38.2-49.6); HEMOGLOBIN 9.4 g/dL (14.0-18.0)
--- NOTE | 2019-10-28 06:44 | History and Physical ---
REASON FOR ADMISSION: 1. Hematuria. 2. Stage IV renal cancer. 3. Anemia. HISTORY OF PRESENT ILLNESS: The patient is a 69-year-old gentleman with history of right-sided renal cancer with possible stage IV involvement, who presented with significant hematuria and clots as well as a decrease in hemoglobin. Over the last few days, he has been admitted for further evaluation and treatment. PAST MEDICAL HISTORY: Significant for hypertension, hyperlipidemia, and right renal cancer. MEDICATIONS: See MAR. ALLERGIES: SEE MAR. SOCIAL HISTORY: Nondrinker, nonsmoker. FAMILY HISTORY: Noncontributory. PHYSICAL EXAMINATION: VITAL SIGNS: Temperature 98.6, pulse 84, blood pressure 156/74, and sats 98% on room air. GENERAL: In no apparent distress, lying in bed. NECK: Supple. CARDIOVASCULAR: Regular rate and rhythm. LUNGS: Clear to auscultation bilaterally. ABDOMEN: Good bowel sounds. Soft and nontender. EXTREMITIES: No clubbing or cyanosis. NEUROLOGIC: Nonfocal. LABORATORY DATA: Brand with has gross hematuria. ASSESSMENT AND PLAN: 1. Hematuria. We will continue with the Brand and consult Dr. Nolan. 2. Stage IV right renal cancer. Continue with current care per Dr. Nolan. 3. Anemia. We will check frequent CBCs. 4. Hyponatremia. Continue monitor. 5. Hypertension. We will continue with his home medicines. 6. Hyperlipidemia. We will continue with his home medicines. Please see hospital chart for details. MD SHANELL Hyman/LAVERN /[id number]
[2019-10-28] MEDS: LOSARTAN POTASSIUM 100 MG TAB PO SCH (08:41)
[2019-10-28] MEDS: ATORVASTATIN 10 MG TAB PO SCH (08:41)
[2019-10-28] MEDS: TAMSULOSIN HCL 0.4 MG CAP PO SCH ×3 (08:41→20:51)
[2019-10-28] MEDS: B&O 60MG R/S 60 MG SUPP PR PRN ×2 (11:18→17:22)
[2019-10-29] VITALS: BP 112/68
--- NOTE | 2019-10-29 01:06 | NUR ---
reyes cath irrigated and aspirated with NS per MD order.
[2019-10-29 04:00] VITALS: BP 119/76
[2019-10-29] MEDS: B&O 60MG R/S 60 MG SUPP PR PRN ×2 (05:40→17:06)
[2019-10-29 05:53] LABS: BASOPHILS % 0.3 % (0.0-1.0); EOSINOPHILS # (AUTO) 0.1 (0.0-0.4); EOSINOPHILS % 1.6 % (0.0-6.0); HEMATOCRIT 30.1 % (38.2-49.6); HEMOGLOBIN 9.9 g/dL (14.0-18.0); LYMPHOCYTES # (AUTO) 1.4 (1.0-3.2); LYMPHOCYTES % 18.8 % (18.0-39.1); MEAN CORPUSCULAR HEMOGLOBIN 29.6 pg (28-32); MEAN CORPUSCULAR HGB CONC 32.9 g/dL (31-35); MEAN CORPUSCULAR VOLUME 89.9 fL (81-99); MONOCYTES # (AUTO) 0.6 (0.2-0.8); MONOCYTES % 7.5 % (4.4-11.3); NEUTROPHILS # (AUTO) 5.4 (2.1-6.9); PLATELET COUNT 320 x10e3/uL (140-360); RED BLOOD COUNT 3.35 x10e6/uL (4.3-5.7); RED CELL DISTRIBUTION WIDTH 12.4 % (11.7-14.4)
--- NOTE | 2019-10-29 06:30 | NUR ---
irrigated and aspirated reyes cath with NS
[2019-10-29 06:45] LABS: ANION GAP 15.3 mmol/L (8-16); CALCIUM 9.5 mg/dL (8.4-10.2); CREATININE, SERUM 1.44 mg/dL (0.72-1.25); POTASSIUM 4.3 mmol/L (3.5-5.1)
[2019-10-29 08:00] VITALS: BP 127/81
--- NOTE | 2019-10-29 08:34 | Progress Note ---
DATE: SUBJECTIVE: The patient did well overnight, still has significant hematuria in his Brand catheter bag. He was able to rest well. OBJECTIVE: VITAL SIGNS: Temperature 98.0, blood pressure 109/66, pulse 105, sats 98% on room air. GENERAL: He is in no apparent distress, lying in bed. LUNGS: Clear to auscultation bilaterally. CARDIOVASCULAR: Regular rate and rhythm. ABDOMEN: Good bowel sounds. Soft, nontender. : Brand, he has gross hematuria in it. EXTREMITIES: No clubbing or cyanosis. NEUROLOGIC: Nonfocal. ASSESSMENT AND PLAN: 1. Hematuria. Continue with current care per Dr. Nolan. 2. Benign prostatic hypertrophy. Continue with his tamsulosin. 3. Hypertension. Continue his medication. 4. Hyperlipidemia. Continue with his atorvastatin. 5. Chronic kidney disease stage 3. Continue to monitor. 6. Anemia. Continue to monitor his CBCs. Please see hospital chart for full details. MD SHANELL Hyman/LAVERN /[id number]
[2019-10-29] MEDS: ACETAMINOPHEN/CODEINE 300MG - 30MG TAB PO PRN ×3 (09:14→23:20)
[2019-10-29] MEDS: TAMSULOSIN HCL 0.4 MG CAP PO SCH ×3 (09:14→20:38)
[2019-10-29] MEDS: LOSARTAN POTASSIUM 100 MG TAB PO SCH (09:14)
[2019-10-29] MEDS: ATORVASTATIN 10 MG TAB PO SCH (09:14)
[2019-10-29 12:01] VITALS: BP 103/67
[2019-10-29 16:00] VITALS: BP 103/69
[2019-10-29 20:00] VITALS: BP 105/70
[2019-10-30] VITALS (8 sets, daily range): BP systolic 108–125; BP diastolic 66–80
[2019-10-30] MEDS: B&O 60MG R/S 60 MG SUPP PR PRN (00:10)
[2019-10-30 05:22] LABS: BASOPHILS % 0.3 % (0.0-1.0); EOSINOPHILS # (AUTO) 0.1 (0.0-0.4); EOSINOPHILS % 1.2 % (0.0-6.0); HEMATOCRIT 26.9 % (38.2-49.6); HEMOGLOBIN 8.9 g/dL (14.0-18.0); LYMPHOCYTES # (AUTO) 0.8 (1.0-3.2); LYMPHOCYTES % 10.4 % (18.0-39.1); MEAN CORPUSCULAR HEMOGLOBIN 29.6 pg (28-32); MEAN CORPUSCULAR HGB CONC 33.1 g/dL (31-35); MEAN CORPUSCULAR VOLUME 89.4 fL (81-99); MONOCYTES # (AUTO) 0.6 (0.2-0.8); MONOCYTES % 8.2 % (4.4-11.3); NEUTROPHILS # (AUTO) 6.1 (2.1-6.9); NEUTROPHILS % 78.7 % (38.7-80.0); PLATELET COUNT 272 x10e3/uL (140-360); RED BLOOD COUNT 3.01 x10e6/uL (4.3-5.7); RED CELL DISTRIBUTION WIDTH 12.2 % (11.7-14.4)
[2019-10-30 05:42] LABS: ALBUMIN 3.2 g/dL (3.5-5.0); ALBUMIN/GLOBULIN RATIO 0.8 (0.8-2.0); ANION GAP 13.2 mmol/L (8-16); CALCIUM 8.9 mg/dL (8.4-10.2); CREATININE, SERUM 1.32 mg/dL (0.72-1.25); MAGNESIUM 1.9 MG/DL (1.3-2.1); POTASSIUM 4.2 mmol/L (3.5-5.1)
--- NOTE | 2019-10-30 07:42 | NUR ---
ASSUMED CARE. AAOX3. ACYANOTIC. RESTING IN BED. NO DISTRESS NOTED. CALL LIGHT IN REACH. SIDE RAILS UP X2. BED LOW AND LOCKED.
[2019-10-30] MEDS: ATORVASTATIN 10 MG TAB PO SCH (08:10)
[2019-10-30] MEDS: TAMSULOSIN HCL 0.4 MG CAP PO SCH ×3 (08:10→20:29)
[2019-10-30] MEDS: LOSARTAN POTASSIUM 100 MG TAB PO SCH (08:10)
[2019-10-30] MEDS: ACETAMINOPHEN/CODEINE 300MG - 30MG TAB PO PRN ×3 (08:11→22:10)
--- NOTE | 2019-10-30 18:50 | NUR ---
WALKING ROUNDS PERFORMED, RECEIVED PT IN BATHROOM, AAOX3, RR EVEN AND NON-LABORED, ON ROOM AIR. NO S/SX OF DISTRESS NOTED. LEFT PT IN BATHROOM WITH INSTRUCTIONS TO CALL FOR ASSISTANCE.
[2019-10-30] MEDS ORDERED: ZOLPIDEM TARTRATE 5 MG TAB PO PRN (21:00)
[2019-10-30] MEDS ORDERED: ZOLPIDEM TARTRATE 10 MG TAB PO PRN (21:00)
[2019-10-31] VITALS: BP 126/75
[2019-10-31 04:00] VITALS: BP 111/56
[2019-10-31 05:35] LABS: BASOPHILS % 0.3 % (0.0-1.0); EOSINOPHILS # (AUTO) 0.1 (0.0-0.4); EOSINOPHILS % 1.2 % (0.0-6.0); HEMATOCRIT 26.7 % (38.2-49.6); LYMPHOCYTES # (AUTO) 0.9 (1.0-3.2); MEAN CORPUSCULAR HEMOGLOBIN 30.7 pg (28-32); MEAN CORPUSCULAR HGB CONC 33.7 g/dL (31-35); MEAN CORPUSCULAR VOLUME 91.1 fL (81-99); MONOCYTES # (AUTO) 0.6 (0.2-0.8); MONOCYTES % 7.1 % (4.4-11.3); NEUTROPHILS # (AUTO) 6.1 (2.1-6.9); NEUTROPHILS % 78.9 % (38.7-80.0); PLATELET COUNT 260 x10e3/uL (140-360); RED BLOOD COUNT 2.93 x10e6/uL (4.3-5.7); RED CELL DISTRIBUTION WIDTH 12.1 % (11.7-14.4)
[2019-10-31 05:59] LABS: ALBUMIN 3.2 g/dL (3.5-5.0); ALBUMIN/GLOBULIN RATIO 0.8 (0.8-2.0); ANION GAP 13.5 mmol/L (8-16); CREATININE, SERUM 1.29 mg/dL (0.72-1.25); POTASSIUM 4.5 mmol/L (3.5-5.1)
--- NOTE | 2019-10-31 07:13 | NUR ---
ASSUMED CARE. AAOX3. ACYANOTIC. RESTING IN BED. NO DISTRESS NOTED. CALL LIGHT IN REACH. SIDE RAILS UP X2. BED LOW AND LOCKED.
[2019-10-31] MEDS: ACETAMINOPHEN/CODEINE 300MG - 30MG TAB PO PRN ×2 (07:31→14:31)
[2019-10-31 08:28] VITALS: BP 118/76
[2019-10-31] MEDS: LOSARTAN POTASSIUM 100 MG TAB PO SCH (08:32)
[2019-10-31] MEDS: TAMSULOSIN HCL 0.4 MG CAP PO SCH ×2 (08:32→15:42)
[2019-10-31] MEDS: ATORVASTATIN 10 MG TAB PO SCH (08:32)
[2019-10-31 08:45] VITALS: BP 118/76
--- NOTE | 2019-10-31 11:27 | NUR ---
MIRZA FROM SCHEDULING OF DR. WELLS'S OFFICE INFORMED THAT PATIENT'S SURGERY IS SCHEDULED FOR WEDNESDAY AFTERNOON AND THAT PATIENT SHOULD BE A PMC BY 11AM ON Wednesday11-06-19.
[2019-10-31 11:38] VITALS: BP 121/75
[2019-10-31] MEDS: B&O 60MG R/S 60 MG SUPP PR PRN (12:30)
--- NOTE | 2019-10-31 15:39 | NUR ---
PATIENT RECEIVED FORM FOR MEDICAL RELEASE AUTHORIZATION PER JAYCE'S REQUEST.
== END 2019-10-31 15:55 | disposition home or self-care (01) ==
LOC: ER 02:00 → ERHOLD 04:19 → MED/SURG 05:15
PROVIDERS: ADMIT Internal Medicine; ATTEND Internal Medicine
DX: R33.9 Retention of urine, unspecified (principal); C64.1 Malignant neoplasm of right kidney, except renal pelvis; R31.9 Hematuria, unspecified; E78.5 Hyperlipidemia, unspecified; Z87.442 Personal history of urinary calculi; Z82.49 Family history of ischemic heart disease and other diseases of the circulatory system; D64.9 Anemia, unspecified; E87.1 Hypo-osmolality and hyponatremia; I12.9 Hypertensive chronic kidney disease with stage 1 through stage 4 chronic kidney disease, or unspecified chronic kidney disease; N18.3 Chronic kidney disease, stage 3 (moderate); N32.89 Other specified disorders of bladder; N40.1 Benign prostatic hyperplasia with lower urinary tract symptoms; N39.41 Urge incontinence; N17.9 Acute kidney failure, unspecified
CPT/HCPCS: 36415 ×4; 51700; 74176; 80048; 80053 ×3; 81001; 83735; 85014; 85018; 85025 ×4; 85610; 85730; 87086; 99284; G0378 ×4; U0002

== ENCOUNTER 2019-11-06 10:59 | Inpatient (IN) | payer MEDICARE, OTHER ==
[2019-11-02 14:24] LABS: BASOPHILS % 0.1 % (0.0-1.0); EOSINOPHILS # (AUTO) 0.1 (0.0-0.4); EOSINOPHILS % 0.6 % (0.0-6.0); HEMATOCRIT 27.9 % (38.2-49.6); HEMOGLOBIN 9.3 g/dL (14.0-18.0); LYMPHOCYTES # (AUTO) 0.9 (1.0-3.2); LYMPHOCYTES % 10.5 % (18.0-39.1); MEAN CORPUSCULAR HEMOGLOBIN 29.7 pg (28-32); MEAN CORPUSCULAR HGB CONC 33.3 g/dL (31-35); MEAN CORPUSCULAR VOLUME 89.1 fL (81-99); MONOCYTES # (AUTO) 0.6 (0.2-0.8); MONOCYTES % 7.7 % (4.4-11.3); NEUTROPHILS # (AUTO) 6.7 (2.1-6.9); NEUTROPHILS % 80.6 % (38.7-80.0); PLATELET COUNT 270 x10e3/uL (140-360); RED BLOOD COUNT 3.13 x10e6/uL (4.3-5.7); RED CELL DISTRIBUTION WIDTH 12.2 % (11.7-14.4)
[2019-11-02 14:36] LABS: INR 1.1; PROTHROMBIN TIME 14.8 seconds (11.9-14.5)
[2019-11-02 14:37] LABS: PARTIAL THROMBOPLASTIN TIME 42.2 seconds (23.8-35.5)
[2019-11-02 14:43] LABS: ALBUMIN 3.3 g/dL (3.5-5.0); ALBUMIN/GLOBULIN RATIO 0.8 (0.8-2.0); ANION GAP 13.3 mmol/L (8-16); CALCIUM 9.3 mg/dL (8.4-10.2); CREATININE, SERUM 2.2 mg/dL (0.72-1.25); POTASSIUM 4.3 mmol/L (3.5-5.1)
--- NOTE | 2019-11-02 14:54 | Diagnostic Imaging Report ---
EXAMINATION: CHEST 2 VIEWS INDICATION: Pre-operative COMPARISON: None FINDINGS: LINES/TUBES:None LUNGS:The lungs are well-inflated. No focal consolidation or pulmonary edema. Pulmonary nodule seen on prior CT is beyond the resolution of this radiograph. PLEURA:No pleural effusion or pneumothorax. MEDIASTINUM:The cardiomediastinal silhouette appears normal in size and shape. BONES/SOFT TISSUES:No acute osseous injury. ABDOMEN:No free air under the diaphragm. IMPRESSION: No focal pneumonia or pulmonary edema. Signed by: Riya Terrell MD on 11/02/2019 2:51 PM
[~2019-11-06] VITALS: Ht 175.3 cm; Wt 96.2 kg
[~2019-11-06 10:59] MED LIST changes: +ATORVASTATIN CA10 MG PO; -FENTANYL CITRATE/PF 100MCG/2 ML INJ ONE; +FLOMAX0.4 MG PO; +LOSARTAN POTAS100 MG PO; -MIDAZOLAM HCL 2 MG/2 ML VIAL ONE
[2019-11-06] MEDS ORDERED: CEFAZOLIN SOD 1 GM/NS 50ML 50 ML IV ONE (11:12)
[2019-11-06] MEDS ORDERED: TYLENOL WITH C1 EACH PO (11:52)
[2019-11-06] MEDS ORDERED: ACETAMINOPHEN 1000 MG/100 ML 100 ML IV ONE (12:03)
[2019-11-06] MEDS ORDERED: IOPAMIDOL 300MG/ML 50ML INFUS..BTL IV ONE (13:18)
[2019-11-06] MEDS ORDERED: ONDANSETRON HCL INJ 2MG/ML 2ML 2 MG/ML VIAL ONE (14:05)
[2019-11-06] MEDS ORDERED: GLYCOPYRROLATE INJ 0.2 MG/ML VIAL ONE (14:05)
[2019-11-06] MEDS ORDERED: PHENYLEPHRINE HCL 1% 10 MG/ML VIAL ONE (14:05)
[2019-11-06] MEDS ORDERED: ROCURONIUM BROMIDE 10 MG/ML 5ML VIAL IV ONE (14:05)
[2019-11-06] MEDS ORDERED: LIDOCAINE HCL 2% LOCAL INJ 5 ML SDV VIAL INJ ONE (14:05)
[2019-11-06] MEDS ORDERED: SEVOFLURANE INHAL SOLN 250 ML PEN BTL ONE (14:05)
[2019-11-06] MEDS ORDERED: PROPOFOL IV EMULSION 10 MG/ML 20 ML VIAL ONE (14:05)
[2019-11-06] MEDS ORDERED: ETOMIDATE 2 MG/ML 10 ML INJ IV ONE (14:05)
[2019-11-06] MEDS ORDERED: NEOSTIGMINE 1 MG/ML 10ML VIAL ONE (14:05)
[2019-11-06] MEDS ORDERED: DEXAMETHASONE SOD PHOS INJ 4 MG/ML VIAL ONE (14:05)
[2019-11-06] MEDS ORDERED: MICROFIBRILLER COLLAGEN HEMOSTAT 1 GM POWDER TP ONE (16:21)
[2019-11-06] MEDS ORDERED: DIPHENHYDRAMINE HCL INJ 50 MG/ML VIAL IM PRN (17:30)
[2019-11-06] MEDS ORDERED: ACETAMINOPHEN 1000 MG/100 ML IV PRN (17:30)
[2019-11-06] MEDS ORDERED: NALOXONE HCL INJ 0.4 MG/ML AMP IV PRN (17:30)
[2019-11-06] MEDS: MORPHINE SULFATE 1 MG/ML 30ML PCA IV PRN (18:00)
[2019-11-06] MEDS ORDERED: HYDROMORPHONE 1MG/1ML INJ ONE (18:13)
[2019-11-06 18:42] LABS: BASOPHILS % 0.2 % (0.0-1.0); HEMATOCRIT 27.3 % (38.2-49.6); HEMOGLOBIN 9.1 g/dL (14.0-18.0); LYMPHOCYTES # (AUTO) 0.4 (1.0-3.2); LYMPHOCYTES % 3.4 % (18.0-39.1); MEAN CORPUSCULAR HEMOGLOBIN 30.6 pg (28-32); MEAN CORPUSCULAR HGB CONC 33.3 g/dL (31-35); MEAN CORPUSCULAR VOLUME 91.9 fL (81-99); MONOCYTES # (AUTO) 0.6 (0.2-0.8); MONOCYTES % 4.8 % (4.4-11.3); NEUTROPHILS # (AUTO) 11.3 (2.1-6.9); NEUTROPHILS % 91.2 % (38.7-80.0); PLATELET COUNT 214 x10e3/uL (140-360); RED BLOOD COUNT 2.97 x10e6/uL (4.3-5.7); RED CELL DISTRIBUTION WIDTH 12.4 % (11.7-14.4)
[2019-11-06 18:57] LABS: ANION GAP 14.2 mmol/L (8-16); CALCIUM 7.8 mg/dL (8.4-10.2); CREATININE, SERUM 1.31 mg/dL (0.72-1.25); POTASSIUM 4.2 mmol/L (3.5-5.1)
--- NOTE | 2019-11-06 19:05 | Diagnostic Imaging Report ---
EXAMINATION: CHEST SINGLE (PORTABLE) INDICATION: Chest pain concerning for pneumothorax. COMPARISON: Multiple prior radiographs including most recent on 11/02/2019 FINDINGS: TUBES and LINES: Right chest tube in place. Enteric tube which terminates within the expected location of the gastric lumen. There is indeterminate tube which projects over the left hemithorax, beyond the field of views. LUNGS: Low lung volumes with bronchovascular crowding. No focal consolidation. PLEURA: There is small right pneumothorax with approximately 5 mm gap from the thoracic wall. HEART AND MEDIASTINUM: The cardiac metastatic silhouette is enlarged. BONES AND SOFT TISSUES: No acute osseous lesion. Soft tissues are unremarkable. UPPER ABDOMEN: No free air under the diaphragm. IMPRESSION: 1. Small right pneumothorax with approximately 5 mm gap. Right chest tube in place. 2. The cardiomediastinal silhouette is enlarged. This may be due to projection from image technique. Signed by: Yamile Méndez MD on 11/06/2019 7:02 PM
[2019-11-06 20:00] VITALS: BP 118/78
[2019-11-06 21:00] VITALS: BP 113/76
[2019-11-06] MEDS: SOD CHL 0.45%/POT CHL 20MEQ 1,000 ML IV SCH (21:00)
[2019-11-06] MEDS: CEFAZOLIN SOD 1 GM/NS 50ML 50 ML IV SCH (21:30)
[2019-11-06] MEDS: SODIUM CHLORIDE 0.9% 250ML IRRIG IR SCH (21:30)
[2019-11-06 21:56] VITALS: BP 118/78
[2019-11-06 21:57] VITALS: BP 118/78
[2019-11-06 22:00] VITALS: BP 105/84
[2019-11-07] VITALS (12 sets, daily range): BP systolic 103–141; BP diastolic 65–80
[2019-11-07] MEDS: SODIUM CHLORIDE 0.9% 250ML IRRIG IR SCH ×6 (01:30→21:14)
[2019-11-07] MEDS: MORPHINE SULFATE 1 MG/ML 30ML PCA IV PRN ×2 (02:00→15:15)
[2019-11-07] MEDS: CEFAZOLIN SOD 1 GM/NS 50ML 50 ML IV SCH ×3 (05:30→21:14)
[2019-11-07] MEDS: SOD CHL 0.45%/POT CHL 20MEQ 1,000 ML IV SCH ×3 (05:30→21:14)
--- NOTE | 2019-11-07 05:42 | Consultation ---
DATE OF CONSULTATION: REASON FOR CONSULTATION: Postop medical management. HISTORY OF PRESENT ILLNESS: The patient is a 69-year-old gentleman, who is status post right renal removal for right renal mass, he has pneumothorax on the right side, who did well overnight. He voices some pain, but otherwise denies any fever, chills, nausea, vomiting, or chest pain. PAST MEDICAL HISTORY: Significant for diabetes, chronic kidney disease stage 3, hypertension, BPH, and hyperlipidemia. MEDICATIONS: See MAR. ALLERGIES: NONE. SOCIAL HISTORY: Nonsmoker and nondrinker. FAMILY HISTORY: Hypertension. PHYSICAL EXAMINATION: VITAL SIGNS: Temperature 97.2, pulse 78, blood pressure 119/80, saturations 97%. GENERAL: No apparent distress, lying in bed. LUNGS: Decreased breath sounds bilaterally. NECK: Supple. CARDIOVASCULAR: Regular rate and rhythm. ABDOMEN: Good bowel sounds. Soft, nontender. EXTREMITIES: No clubbing or cyanosis. NEUROLOGIC: Moves all extremities x4. ASSESSMENT/PLAN: 1. Status post right nephrectomy. Continue with postoperative care per Urology. 2. Anemia. We will check a CBC. 3. Leukocytosis. Check CBC. 4. Chronic kidney disease, stage 3. Check a CMP. 5. Diabetes. Continue with current care and monitor sugar. 6. Hypertension. Continue to monitor blood pressure. 7. Hyperlipidemia. We will restart his cholesterol medicine. 8. Benign prostatic hypertrophy. We will restart his tamsulosin b.i.d. 9. Please see hospital chart for full details. MD SHANELL Hyman/LAVERN /[id number]
--- NOTE | 2019-11-07 07:10 | NUR ---
Received patient from maintenance technician 3rd shift nurse handoff report at bedside patient in bed alert and oriented x4 verbalizing needs, patient has dressing to right flank, BETSEY drain draining sanguinous drainage, Chest tube to right thoracic area, with scant amount of sanguinous drainage. NGT tube to Low intermittent wall suction. Patient has CARE MANAGEMENT SPECIALIST Morphine with basal rate 1mg /hr, and 1mg on demand. Bed in low position, breaks on belongings and call light within reach instructed to call for assistance, verbalized understanding.
[2019-11-07] MEDS ORDERED: MAGNESIUM SULFATE 2GM/50ML IV ONE (08:30)
--- NOTE | 2019-11-07 08:30 | Diagnostic Imaging Report ---
Examination: Single AP view of the chest. COMPARISON: 11/06/2019 INDICATION: Chest tube in place DISCUSSION: Enteric tube and right chest tube are unchanged in position. Small right-sided pneumothorax described on the comparison examination is less conspicuous on the current study. Left lung remains clear. Stable cardiomediastinal contour. No acute osseous abnormalities. IMPRESSION: Stable position of right chest tube. Trace pneumothorax described on 11/06/2019 is no longer definitively visualized. Signed by: Dr. Earl Guidry M.D. on 11/07/2019 8:27 AM
--- NOTE | 2019-11-07 08:55 | NUR ---
Dr. Diego Becker rounded to see patient made aware Dr. Onofre said ok for patient to have ice chips, while NPO and with NGT in place to LIWS, received orders to discontinue ice chips and maintain patient strict NPO. Dr. Cortez explained to patient the reason for NPO status, patient verbalized understanding. Received orders also to discontinue Morphine basal rate, to encourage IS, PT/OT evaluation, and change BETSEY dressing.
[2019-11-07] MEDS ORDERED: ATORVASTATIN 10 MG TAB PO SCH (09:00)
[2019-11-07] MEDS ORDERED: MAGNESIUM SULFATE 2GM/50ML 50 ML IV ONE (09:00)
[2019-11-07] MEDS ORDERED: TAMSULOSIN HCL 0.4 MG CAP PO SCH (09:00)
[2019-11-07 09:26] LABS: % IRON SATURATION 31 % (15-50); IRON 68 ug/dL (65-175); TOTAL IRON BINDING CAPACITY 218 ug/dL (261-478); TRANSFERRIN 156 mg/dL (174-364)
--- NOTE | 2019-11-07 09:30 | NUR ---
Chest tube clamped per Dr. Onofre's orders.
--- NOTE | 2019-11-07 09:52 | Consultation ---
DATE OF CONSULTATION: Pulmonary Consultation HISTORY OF PRESENT ILLNESS: The patient of Dr. Nolan and Dr. Weathers. Seen postoperatively after right nephrectomy. The patient has a history of hematuria, renal colic in the past, right renal mass with suspicion of adenopathy. ALLERGIES: NO KNOWN ALLERGIES. HOME MEDICATIONS: According to records, his home medications included Tylenol 3, losartan, Flomax, oxybutynin, and Lipitor. PAST MEDICAL HISTORY: He has a history of BPH. He has had a right ureteral stent placed in the past, had back surgery. He has had back surgery as well as stent placement and right radical nephrectomy on the November 06. SOCIAL HISTORY: Nurses Aide, born in [place], [place], retired. The patient has never smoked and does not drink. Has no respiratory symptoms at this time. FAMILY HISTORY: Positive for diabetes mellitus. PHYSICAL EXAMINATION: GENERAL: He is a well-developed white male, in no acute distress, complaining of thirst. VITAL SIGNS: Temperature 97.8, pulse 71, respirations 14, and blood pressure 116/71. HEAD: Normocephalic and atraumatic. NECK: Trachea midline. LUNGS: Clear with somewhat diminished breath sounds right base. Chest tube in place, right chest. Right flank incision, BETSEY drain. HEART: Regular rhythm. ABDOMEN: There is a wound. Nontender. EXTREMITIES: Nonedematous. The patient appears stable postoperatively. There is no obvious chest tube drainage or leak. Plan is to leave the chest tube in today, discontinue in a.m. Mobilize incentive spirometry. Check serum iron levels. This is likely anemia of chronic disease. Continue NG tube drainage. Thank you for this kind referral. Earl Onofre MD DS/MODL /[id number]
--- NOTE | 2019-11-07 11:02 | History and Physical ---
CONSULTANTS: 1. Diego Nolan MD. 2. Earl Onofre MD. CHIEF COMPLAINT: Status post right nephrectomy with right thoracoabdominal chest tube. HISTORY OF PRESENT ILLNESS: This is a 69-year-old male with right renal mass and recurrent hematuria associated with also enlarged prostate. The patient is now status post radical right nephrectomy with status post right thoracoabdominal chest tube. The patient is otherwise stable at this time in IMCU. He complained of pain, but appropriate with postoperative care. The patient is otherwise stable. The patient is receiving IV fluids. He seems stable. No chest pain or shortness of breath. PAST MEDICAL HISTORY: Hypertension, dyslipidemia, enlarged prostate, hematuria, and right renal mass. PAST SURGICAL HISTORY: Status post right renal radical nephrectomy. He had lumbar spine surgery, colonoscopy, kidney stones removal. SOCIAL HISTORY: The patient does not smoke or use alcohol. No recreational drug use. ALLERGIES: NO KNOWN ALLERGIES. HOME MEDICATIONS: Flomax, Lipitor, losartan, Tylenol No. 3. PHYSICAL EXAMINATION: VITAL SIGNS: Temperature is 98, blood pressure 116/77, pulse rate is 71, respirations 22. General: The patient is not in acute distress. He is awake. HEENT: Normocephalic and atraumatic. Pupils reactive. Anicteric. NECK: Supple grossly. PULMONARY: Right chest tube. Diminished breath sounds at bases. CARDIOVASCULAR: S1, S2. Regular rate and rhythm. ABDOMEN: Soft. BETSEY drain in place in the right abdominal area. Nondistention. Pain postop, on BUILDING WRECKER. NEUROLOGIC: No focal deficit. LABORATORY DATA: WBC is 12.4, hemoglobin 9.1, hematocrit 27, platelets is 214. Chemistry; sodium 136, potassium 4.2, chloride 105, bicarb 21, BUN 17, creatinine is 1.3, glucose is 183. Magnesium is 1.5. IMPRESSION: 1. Status post right radical nephrectomy for renal mass. 2. Status post right chest tube placement. 3. Slight elevation of blood sugar. 4. Postoperative pain. PLAN: Continue with n.p.o., without oral intake. Continue with postoperative care. Repeat lab work. Check for glycohemoglobin A1c and TSH in the morning. We will repeat electrolytes. Replace magnesium level. Continue with BUILDING WRECKER for pain control. Incentive spirometry. BETSEY drain management. Chest tube management. We will follow up closely on this patient. MD CONCEPCION Medrano/LAVERN /[id number]
[2019-11-08] VITALS (8 sets, daily range): BP systolic 116–143; BP diastolic 66–78
[2019-11-08] MEDS: SODIUM CHLORIDE 0.9% 250ML IRRIG IR SCH ×3 (01:30→09:05)
[2019-11-08] MEDS: SODIUM CHLORIDE 0.9% 1000ML 1,000 ML IV SCH ×2 (03:00→09:45)
[2019-11-08] MEDS: SOD CHL 0.45%/POT CHL 20MEQ 1,000 ML IV SCH (03:41)
[2019-11-08 04:45] LABS: BASOPHILS % 0.2 % (0.0-1.0); EOSINOPHILS % 0.2 % (0.0-6.0); LYMPHOCYTES # (AUTO) 0.8 (1.0-3.2); LYMPHOCYTES % 7.6 % (18.0-39.1); MEAN CORPUSCULAR HEMOGLOBIN 29.3 pg (28-32); MEAN CORPUSCULAR HGB CONC 33.3 g/dL (31-35); MEAN CORPUSCULAR VOLUME 87.9 fL (81-99); MONOCYTES # (AUTO) 0.8 (0.2-0.8); MONOCYTES % 8.1 % (4.4-11.3); NEUTROPHILS # (AUTO) 8.5 (2.1-6.9); NEUTROPHILS % 83.5 % (38.7-80.0); PLATELET COUNT 231 x10e3/uL (140-360); RED BLOOD COUNT 2.73 x10e6/uL (4.3-5.7); RED CELL DISTRIBUTION WIDTH 12.4 % (11.7-14.4)
[2019-11-08 05:07] LABS: ANION GAP 13.1 mmol/L (8-16); BLOOD UREA NITROGEN 18 mg/dL (7-26); BUN/CREATININE RATIO 17 (6-25); CARBON DIOXIDE 23 mmol/L (22-29); CHLORIDE 101 mmol/L (98-107); CREATININE, SERUM 1.08 mg/dL (0.72-1.25); EST GLOMERULAR FILTRATION RATE > 60 ML/MIN (60-); GLUCOSE 106 mg/dL (74-118); MAGNESIUM 1.9 MG/DL (1.3-2.1); POTASSIUM 5.1 mmol/L (3.5-5.1); SODIUM 132 mmol/L (136-145)
[2019-11-08] MEDS: CEFAZOLIN SOD 1 GM/NS 50ML 50 ML IV SCH ×3 (05:30→21:25)
--- NOTE | 2019-11-08 05:30 | NUR ---
Chest tube clamped per MD order. Will continue to monitor.
--- NOTE | 2019-11-08 07:20 | NUR ---
Bedside report and walking rounds completed with on coming nurse. Patient in bed with call light and LOADING RACK SUPERVISOR button within reach. No issues or concerns noted. Chest tube clamped, NGT LIWS, BETSEY drain in place and to suction, reyes to bedside drainage.
--- NOTE | 2019-11-08 08:05 | NUR ---
DR. CHRISTIAN AT BEDSIDE. CHEST TUBE REMOVED. PT TOLERATED. RADIOLOGY CALLED FOR PORTABLE CXR.
--- NOTE | 2019-11-08 08:23 | Diagnostic Imaging Report ---
EXAM: CHEST SINGLE (PORTABLE) DATE: 11/08/2019 5:10 AM INDICATION: Pneumothorax status post chest tube COMPARISON: 11/07/2019 FINDINGS/IMPRESSION: Right-sided chest tube identified in stable position. Enteric tube noted coursing below the diaphragm. No significant residual pneumothorax is appreciated. There is no evidence for focal consolidation. The cardiomediastinal silhouette is stable in appearance. No acute osseous abnormality is identified. Signed by: Dr. Dmitri Starks MD on 11/08/2019 8:19 AM
[2019-11-08] MEDS ORDERED: IRON SUCROSE 100 MG in SODIUM CHLORIDE 0.9% 100 ML 100 ML IV SCH (11:00)
--- NOTE | 2019-11-08 11:02 | Diagnostic Imaging Report ---
EXAM: CHEST SINGLE (PORTABLE) DATE: 11/08/2019 10:35 AM INDICATION: Chest tube removal COMPARISON: Earlier 11/08/2019 FINDINGS/IMPRESSION: There has been interval removal of the previously visualized right-sided chest tube. There is no evidence for pneumothorax status post chest tube removal. The remainder the examination is unchanged from the recent prior examination. Enteric tube noted coursing below the diaphragm. There is no evidence for focal consolidation or pleural effusion. Cardiomediastinal silhouette is stable in appearance. Signed by: Dr. Dmitri Starks MD on 11/08/2019 10:59 AM
--- NOTE | 2019-11-08 13:30 | NUR ---
NG TUBE REMOVED AT THIS TIME. PT TOLERATED, TIP INTACT.
[2019-11-08] MEDS: MORPHINE SULFATE 1 MG/ML 30ML PCA IV PRN (22:21)
[2019-11-09] VITALS (8 sets, daily range): BP systolic 108–124; BP diastolic 66–81
[2019-11-09 04:35] LABS: BASOPHILS % 0.3 % (0.0-1.0); EOSINOPHILS # (AUTO) 0.1 (0.0-0.4); EOSINOPHILS % 0.8 % (0.0-6.0); HEMATOCRIT 22.2 % (38.2-49.6); HEMOGLOBIN 7.5 g/dL (14.0-18.0); LYMPHOCYTES % 9.7 % (18.0-39.1); MEAN CORPUSCULAR HEMOGLOBIN 29.8 pg (28-32); MEAN CORPUSCULAR HGB CONC 33.8 g/dL (31-35); MEAN CORPUSCULAR VOLUME 88.1 fL (81-99); MONOCYTES # (AUTO) 0.9 (0.2-0.8); MONOCYTES % 8.6 % (4.4-11.3); NEUTROPHILS # (AUTO) 8.5 (2.1-6.9); NEUTROPHILS % 79.8 % (38.7-80.0); PLATELET COUNT 253 x10e3/uL (140-360); RED BLOOD COUNT 2.52 x10e6/uL (4.3-5.7); RED CELL DISTRIBUTION WIDTH 12.3 % (11.7-14.4)
[2019-11-09 04:51] LABS: ANION GAP 11.5 mmol/L (8-16); BLOOD UREA NITROGEN 16 mg/dL (7-26); BUN/CREATININE RATIO 15 (6-25); CALCIUM 8.3 mg/dL (8.4-10.2); CARBON DIOXIDE 24 mmol/L (22-29); CHLORIDE 101 mmol/L (98-107); CREATININE, SERUM 1.07 mg/dL (0.72-1.25); EST GLOMERULAR FILTRATION RATE > 60 ML/MIN (60-); GLUCOSE 96 mg/dL (74-118); POTASSIUM 4.5 mmol/L (3.5-5.1); SODIUM 132 mmol/L (136-145)
[2019-11-09] MEDS: CEFAZOLIN SOD 1 GM/NS 50ML 50 ML IV SCH ×3 (05:30→21:30)
--- NOTE | 2019-11-09 07:00 | NUR ---
RECEIVED BEDSIDE SHIFT REPORT FROM GOLD LEAF LABORER RN. PT DENIES NEEDS AT THIS TIME.
--- NOTE | 2019-11-09 08:37 | Diagnostic Imaging Report ---
X-ray chest AP portable upright Comparison: 11/07/2019 History: Chest tube DC'd Findings: The right chest tube has been removed. There is no pneumothorax. There is no pleural effusion. Central airways unremarkable. Possible cardiomegaly. Atherosclerotic aorta. Elevation of the right hemidiaphragm. No focal lung disease. No acute skeletal abnormalities. Upper abdomen not well-visualized. No subcutaneous emphysema. Impression: Status post right chest tube removal with no pneumothorax. Signed by: Fredo Pagan MD on 11/09/2019 8:34 AM
[2019-11-09] MEDS: PANTOPRAZOLE 40 MG 10ML VIAL IV SCH (09:02)
[2019-11-09] MEDS: IRON SUCROSE 100 MG in SODIUM CHLORIDE 0.9% 100 ML 100 ML IV SCH (09:02)
[2019-11-09] MEDS ORDERED: FUROSEMIDE INJ 10 MG/ML 2 ML VIAL IV ONE ×2 (09:15→14:00)
[2019-11-09] MEDS ORDERED: SODIUM CHLORIDE 0.9% 250ML 250 ML IV ONE ×2 (09:15→14:00)
[2019-11-09] MEDS ORDERED: EPOETIN ALFA-EPBX 10,000 UNIT/ML VIAL SC ONE (09:30)
[2019-11-09] MEDS ORDERED: BISACODYL 10 MG SUPP PR ONE (10:00)
--- NOTE | 2019-11-09 10:00 | NUR ---
SCHWAB DC'D WITH TIP INTACT. PT TOLERATED. REPORTER PUMP ALSO DC'D. PT DUE TO VOID BY 1500 TODAY.
[2019-11-09] MEDS: SODIUM CHLORIDE 0.9% 1000ML 1,000 ML IV SCH (11:40)
[2019-11-09] MEDS: ACETAMINOPHEN/CODEINE 300MG - 30MG TAB PO PRN ×2 (12:43→21:00)
--- NOTE | 2019-11-09 15:00 | NUR ---
PT HAS VOIDED 150 ML AT THIS TIME.
--- NOTE | 2019-11-09 18:26 | NUR ---
PT HAS VOIDED ANOTHER 200 ML. BLOODY TO LIGHT WALLER WITH LARGE 10-15MM BLLOD CLOTS.
--- NOTE | 2019-11-09 20:00 | NUR ---
Received patient complaining of urge but inability to urinate, bladder scan done volume of [address] Nolan informed, received orders to put in a 22 maltese caude tip foleys with instructions to flush before inflating the balloon and after.
[2019-11-09] MEDS ORDERED: LIDOCAINE JELLY 2% 10ML URO-JET TOP ONE (21:30)
--- NOTE | 2019-11-09 21:30 | NUR ---
Brand inserted successfully, 700 mls urine emptied. Patient settled in bed.
[2019-11-10] VITALS (7 sets, daily range): BP systolic 113–129; BP diastolic 70–82
[2019-11-10 04:41] LABS: BASOPHILS % 0.3 % (0.0-1.0); EOSINOPHILS # (AUTO) 0.1 (0.0-0.4); EOSINOPHILS % 0.9 % (0.0-6.0); HEMATOCRIT 24.3 % (38.2-49.6); HEMOGLOBIN 8.3 g/dL (14.0-18.0); LYMPHOCYTES # (AUTO) 0.9 (1.0-3.2); LYMPHOCYTES % 9.7 % (18.0-39.1); MEAN CORPUSCULAR HEMOGLOBIN 29.9 pg (28-32); MEAN CORPUSCULAR HGB CONC 34.2 g/dL (31-35); MEAN CORPUSCULAR VOLUME 87.4 fL (81-99); MONOCYTES # (AUTO) 0.8 (0.2-0.8); MONOCYTES % 8.3 % (4.4-11.3); NEUTROPHILS # (AUTO) 7.6 (2.1-6.9); NEUTROPHILS % 79.6 % (38.7-80.0); PLATELET COUNT 239 x10e3/uL (140-360); RED BLOOD COUNT 2.78 x10e6/uL (4.3-5.7); RED CELL DISTRIBUTION WIDTH 12.5 % (11.7-14.4)
[2019-11-10 05:01] LABS: BLOOD UREA NITROGEN 19 mg/dL (7-26); BUN/CREATININE RATIO 17 (6-25); CALCIUM 8.4 mg/dL (8.4-10.2); CARBON DIOXIDE 21 mmol/L (22-29); CHLORIDE 101 mmol/L (98-107); CREATININE, SERUM 1.11 mg/dL (0.72-1.25); EST GLOMERULAR FILTRATION RATE > 60 ML/MIN (60-); GLUCOSE 112 mg/dL (74-118); SODIUM 134 mmol/L (136-145)
[2019-11-10] MEDS: CEFAZOLIN SOD 1 GM/NS 50ML 50 ML IV SCH ×3 (05:30→21:30)
[2019-11-10] MEDS: SODIUM CHLORIDE 0.9% 1000ML 1,000 ML IV SCH ×2 (06:35→14:20)
--- NOTE | 2019-11-10 07:05 | NUR ---
HANDOFF REPORT FROM DEPARTMENT EDITOR NURSE, PATIENT IN BED ALERT AND ORIENTED X3 VERBALIZING NEEDS, HAS IV ACCESS TO RIGHT FOREARM, SCHWAB TO GRAVITY DRAINING, WALLER RED URINE, NO CLOTS IN TUBE NOTED. HAS SURGICAL INCISION TO RIGHT FLANK WITH WANDA OPEN TO AIR NO DRAINAGE NOTED FROM SURGICAL INCISION. DRESSING TO ANTERIOR CHEST WALL, BETSEY DRAIN TO RIGHT LATERAL ABDOMEN DRAINING SANGUINOUS DRAINAGE.
[2019-11-10] MEDS: ACETAMINOPHEN/CODEINE 300MG - 30MG TAB PO PRN (08:45)
[2019-11-10] MEDS: PANTOPRAZOLE 40 MG 10ML VIAL IV SCH ×2 (08:53→09:09)
[2019-11-10] MEDS: IRON SUCROSE 100 MG in SODIUM CHLORIDE 0.9% 100 ML 100 ML IV SCH (08:54)
--- NOTE | 2019-11-10 10:31 | Diagnostic Imaging Report ---
EXAMINATION: CHEST SINGLE (PORTABLE) INDICATION: Chest tube removal COMPARISON: Multiple prior chest radiographs, most recently 11/08/2019 FINDINGS: LINES/TUBES:None LUNGS:The lungs are well-inflated. No focal consolidation or pulmonary edema. PLEURA:No pleural effusion or pneumothorax. MEDIASTINUM:The cardiomediastinal silhouette appears normal in size and shape. BONES/SOFT TISSUES:No acute osseous injury. ABDOMEN:No free air under the diaphragm. IMPRESSION: No pneumothorax status post right chest tube removal. Signed by: Riya Terrell MD on 11/10/2019 10:27 AM
[2019-11-10] MEDS: MULTIVITAMINS/MINERALS TAB PO SCH (11:39)
[2019-11-10] MEDS: HYDROCODONE/APAP 10MG-325MG TAB PO PRN ×3 (13:10→22:30)
[2019-11-10] MEDS ORDERED: ACETAMINOPHEN 1000 MG/100 ML IV SCH (18:00)
--- OUTSIDE RECORDS SUMMARY | 2019-11-10 18:58 | XMS REPORT | Continuity of Care Document ---
Author Author [facility] t Organization [facility] Address [facility]3 Prasanth Sandoval [address] [place] [phone] Phone Unavailable Care Team Providers Care Pan Shover Name Role Phone NONSTAFF PCP Unavailable ABEL DOMINGO Attphys Unavailable NADIYAPRIETO HANNA Attphys Unavailable HAMPEL, ROXANN Attphys Unavailable SWEET, A LAIRD Attphys Unavailable ABEL DOMINGO Admphys Unavailable PRIETO HEARN Admphys Unavailable Payers Payer Name Policy Type Policy Number Effective Date Expiration Date Whitley foy [facility] Medicare Complete [id number] 2018 00:00:00 [facility] Problems Condition Name Condition Details Condition Category Status Onset Date Resolution Date Last Treatment Date Treating Clinician Comments Source Hematuria Problem Active [facility] Urinary tract infection Problem Active [facility] Allergies, Adverse Reactions, Alerts Allergy Name Allergy Type Status Severity Reaction(s) Onset Date Inacti ve Date Treating Clinician Comments Source Penicillin Allergy to substance Active 2019-10-09 00:00:00 [facility] Social History Social Habit Start Date Stop Date Quantity Comments Source Sex Assigned At 1950 00:00:00 1950 00:00:00 Male [facility] Medications This patient has no known medications. Vital Signs Vital Name Observation Time Observation Value Comments Source Weight 2019-10-09 12:12:00 212 [lb_av] [facility] BMI (Body Mass Index) 2019-10-09 12:12:00 31.3 kg/m2 [facility] Procedures Procedure Date / Time Performed Performing Clinician Sourc e Computed tomography of abdomen and pelvis without then with contrast 2019-10-09 00:00:00 [facility] Ultrasound, renal 2019-05-26 00:00:00 [facility] Magnetic resonance imaging of abdomen without then wit h contrast 2019-05-17 00:00:00 [facility] Testicular ultrasound 2019-03-24 00:00:00 [facility] Dup-scan artl alvarez abdl/pel/scrot&/RPR orgn lmt 2019-03-24 00:00: 00 [facility] Computed tomography of abdomen and pelvis without then with contrast 2019-03-24 00:00:00 [facility] CT of abdomen and pelvis without contrast 2019-03-16 00:00:00 [facility] Plan of Care Planned Activity Planned Date Details Comments Source Instructions Hematuria - Male [facility] Instructions Urinary Tract Infection - Men [facility] Encounters Start Date/Time End Date/Time Encounter Type Admission Type Attendi [facility] Care Department Encounter ID Source 2019-10-09 13:14:00 2019-10-09 17:15:00 Departed Emergency Room 1 KEKE NIELSEN [facility] [id number] [facility] 2019-06-30 08:26:00 2019-06-30 08:26:00 Registered Clinic 3 [facility] [id number] [facility] 2019-05-26 08:47:00 2019-05-26 08:47:00 Registered Clinic 3 [facility] [id number] [facility] 2019-05-17 12:23:00 2019-05-17 12:23:00 Registered Clinic 3 [facility] [id number] [facility] 2019-04-25 08:28:00 2019-04-25 08:28:00 Registered Clinic 3 [facility] [id number] [facility] 2019-03-24 08:21:00 2019-03-24 08:21:00 Registered Clinic 3 ROXANN SCHAEFER [facility] [id number] [facility] 2019-03-16 10:18:00 2019-03-16 10:18:00 Registered Emergency Room 1 KEKE NIELSEN [facility] [id number] I [facility] Results Test Description Test Time Test Comments Results Result Comments Source CHEST SINGLE (PORTABLE) 2019-11-09 08:32:00 [facility] [address] [place] [address] Patient Name: TONYA YORK III MR #: [id number] : 1950 Age/Sex: 69/M Req #: [id number] Adm Physician: ABEL DOMINGO MD Ordered by: JANINE CHRISTIAN MD Report #: [id number] Location: [facility] Room/Bed: [place] [address] Procedure: [id number] DX/CHEST SINGLE (PORTABLE) Exam Date: 11/09/19 Exam Time: 439 REPORT STATUS: Signed X-ray chest AP portable upright Comparison: 11/07/2019 History: Chest tube DC'd Findings: The right chest tube has been removed. There is no pneumothorax. There is no pleural effusion. Central airways unremarkable. Possible cardiomegaly. Athe rosclerotic aorta. Elevation of the right hemidiaphragm. No focal lung disease. No acute skeletal abnormalities. Upper abdomen not well-visualized. No subcutaneous emphysema. Impression: Status post right chest tube removal with no pneumothorax. Signed by: Fredo Prado MD on 11/09/2019 8:34 AM Dictated By: FREDO PRADO MD 3 Transcribed By: HONEY on 11/09/19833 COPY TO: JANINE CHRISTIAN MD CHEST SINGLE (PORTABLE) 2019-11-08 10:58:00 [facility] [address] [place] [address] Patient Name: TONYA YORK III MR #: [id number] : 1950 Age/Sex: 69/M Req #: [id number] Adm Physician: ABEL DOMINGO MD Ordered by: JANINE CHRISTIAN MD Report #: [id number] Location: [facility] Room/Bed: [place] [address] Procedure: [id number] DX/CHEST SINGLE (PORTABLE) Exam Date: 11/08/19 Exam Time: 1035 REPORT STATUS: Signed EXAM: CHEST SINGLE (PORTABLE) DATE: 11/08/2019 10:35 AM INDICATION: Chest tube removal COMPARISON: Earlier 11/08/2019 FINDINGS/IMPRESSION: There has been interval removal of the previously visualized right-sided chest tube. There is no evidence for pneumothorax status post chest tube removal. The remainder the examination is unchanged from the recent prior examination. Enteric tube noted coursing below the diaphragm. There is no evidence for focal consolidation or pleural effusion. Cardiomediastinal silhouette is stable in appearance. Signed by: Dr. Dmitri Starks MD on 11/08/2019 10:59 AM Dictated By: DMITRI STARKS MD 105 Transcribed By: HONEY on 11/08/191058 COPY TO: JANINE CHRISTIAN MD CHEST SINGLE (PORTABLE) 2019-11-08 08:17:00 [facility] [address] [place] [id number] Patient Name: TONYA YORK III MR #: [id number] : 1950 Age/Sex: 69/M Req #: [id number] Adm Physician: ABEL DOMINGO MD Ordered by: ROXANN WELLS MD Report #: [id number] Location: [facility] Room/Bed: [place] [address] Procedure: [id number] DX/CHEST SINGLE (PORTABLE) Exam Date: 11/08/19 Exam Time: 05 REPORT STATUS: Signed EXAM: CHEST SINGLE (PORTABLE) DATE: 11/08/2019 5:10 AM INDICATION: Pneumothorax status post chest tube COMPARISON: 11/07/2019 FINDINGS/IMPRESSION: Right-sided chest tube identified in stable position. Enteric tube noted coursing below the diaphragm. No significant residual pneumothorax is appreciated. There is no evidence for focal consolidation. The cardiomediastinal silhouette is stable in appearance. No acute osseous abnormality is identified. Signed by: Dr. Dmitri Starks MD on 11/08/2019 8:19 AM Dictated By: DMITRI STARKS MD 8 Transcribed By: HONEY on 11/08/19818 COPY TO: ROXANN WELLS MD CHEST SINGLE (PORTABLE) 2019-11-07 08:24:00 [place] [id number] [place] [address] Patient Name: TONYA YORK III MR #: [id number] : 1950 Age/Sex: 69/M Req #: [id number] Adm Physician: ROXANN WELLS MD Ordered by: ROXANN WELLS MD Report #: [id number] Location: [facility] Room/Bed: [place] [address] Procedure: [id number] DX/CHEST SINGLE (PORTABLE) Exam Date: 11/07/19 Exam Time: 604 REPORT STATUS: Signed Examination: Single AP view of the chest. COMPARISON: 11/06/2019 INDICATION: Chest tube in place DISCUSSION: Enteric tube and right chest tube are unchanged in position. Small right-sided pneumothorax described on the comparison examinat ion is less conspicuous on the current study. Left lung remains clear. Stable cardiomediastinal contour. No acute osseous abnormalities. IMPRESSION: Stable position of right chest tube. Trace pneumothorax described on 11/06/2019 is no longer definitively visualized. Signed by: Dr. Janine Guidry M.D. on 11/07/2019 8:27 AM Dictated By: JANINE GUIDRY MD 6 Transcribed By: HONEY on 11/07/19826 COPY TO: ROXANN WELLS MD CHEST SINGLE (PORTABLE) 2019-11-06 18:48:00 [place] [address] Patient Name: TONYA YORK III MR #: [id number] : 1950 Age/Sex: 69/M Req #: [id number] [facility] Physician: ROXANN WELLS MD Ordered by: ROXANN WELLS MD Report #: [id number] Location: [facility] Room/Bed: [place] [address] Procedure: [id number] DX/CHEST SINGLE (PORTABLE) Exam Date: 11/06/19 Exam Time: 1730 REPORT STATUS: Signed EXAMINATION: CHEST SINGLE (PORTABLE) INDICATION: Chest pain concerning for pneumothorax. COMPARISON: Multiple prior radiographs including most recent on 11/02/2019 FINDINGS: TUBES and LINES: Right chest tube in place. Enteric tub e which terminates within the expected location of the gastric lumen. There is indeterminate tube which projects over the left hemithorax, beyond the field of views. LUNGS: Low lung volumes with bronchovascular crowding. No focal consolidation. PLEURA: There is small right pneumothorax with approximately 5 mm gap from the thoracic wall. HEART AND MEDIASTINUM: The cardiac metastatic silhouette is enlarged. BONES AND SOFT TISSUES: No acute osseous lesion. Soft tissues are unremarkable. UPPER ABDOMEN: No free air under the diaphragm. IMPRESSION: 1. Small right pneumothorax with approximately 5 mm gap. Right chest tube in place. 2. The cardiomediastinal silhouette is enlarged. This may be due to projection from image technique. Signed by: Karine Wagner MD on 11/06/2019 7:02 PM Dictated By: KARINE WAGNER MD 01 Transcribed By: HONEY on 11/06/191901 COPY TO: ROXANN WELLS MD CHEST 2 VIEWS 2019-11-02 14:50:00 [place] [address] Patient Name: TONYA YORK III MR #: [id number] : 1950 Age/Sex: 69/M Req #: [id number] Adm Physician: Ordered by: ROXANN WELLS MD Report #: [id number] Location: [place] Room/Bed: Procedure: DX/CHEST 2 VIEWS Exam Date: 11/02/19 Exam Time: 1429 REPORT STATUS: Signed EXAMINATION: CHEST 2 VIEWS INDICATION: Pre-operative COMPARISON: None FINDINGS: LINES/TUBES:None LUNGS:The lungs are well-inflated. No focal consolidation or pulmonary edema. Pulmonary nodule seen on prior CT is beyond the resolution of this radiograph. PLEURA:No pleural effusion or pneumothorax. MEDIASTINUM:The cardiomediastinal silhouette appears normal in size and shape. BONES/SOFT TISSUES:No acute osseous injury. ABDOMEN:No free air under the diaphragm. IMPRESSION: No focal pneumonia or pulmonary edema. Signed by: Sierra Chong MD on 11/02/2019 2:51 PM Dictated By: SIERRA CHONG MD 145 Transcribed By: HONEY on 11/02/19 145 COPY TO: ROXANN WELLS MD CT ABDOMEN/PELVIS WO 2019-10-28 03:25:00 [place] [address] Patient Name: TONYA YORK III MR #: [id number] : 1950 Age/Sex: 69/M Req #: [id number] Adm Physician: PRIETO HEARN MD Ordered by: VIOLA DALEY MD Report #: [id number] Location: [facility]/SURG Room/Bed: [facility] Procedure: [id number] CT/CT ABDOMEN/PELVIS WO Exam Date: 10/28/19 Exam Time: 0230 REPORT STATUS: Signed EXAMINATION: CT of the abdomen and pelvis without contrast. TECHNIQUE: Spiral CT images of the abdomen and pelvis were performed from the lung bases to the lesser trochanters. No intravenous contrast was given per renal stone protocol. Coronal and sagittal reformatted images were obtained. COMPARISON: CT abdomen and pelvis 10/09/2019 CLINICAL HISTORY:Difficulty urinating, hematuria DISCUSSION: ABSENCE OF INTRAVENOUS CONTRAST DECREASES SENSITIVITY FOR DETECTION OF FOCAL LESIONS AND VASCULAR PATHOLOGY. ABDOMEN/PELVIS: LOWER THORAX: Stable 4 mm pulmonary nodule in the right lower lobe (series 3, image 3). Mild atherosclerotic calcification of the aortic valves. HEPATOBILIARY: Interval increase in size of ill-defined 6.4 x 6.7 x 3.6 cm hypodense solid mass in the hepatic dome involving segments VIII and likely IV (series 3, image 15), which previously measured approximately 5.2 x 3.6 x 3.6 cm. Stable 9 mm fluid density lesion in hepatic segment IV (series 3, image 31), likely representing a cyst. No intra or extrahepatic biliary ductal dilation. GALLBLADDER: No radio-opaque stones or sludge. No wall thickening. SPLEEN: Stable mild splenomegaly, measuring 13.3 cm in AP diameter. PANCREAS: No focal masses or ductal dilatation. ADRENALS: No adrenal nodules. KIDNEYS/URETERS: Ill-defined contour abnormality involving the superior and mid aspects of the right kidney (series 3, image 61), in area of previously visualized infiltrative mass on CT dated 10/09/2019 (series 3, image 61). This mass extends into the right renal sinus and renal pelvis Stable on 0.5 cm exophytic fluid density simple cyst in the mid to inferior left kidney (series 3, image 89). No ureteral or renal calculi. No left hydronephrosis or evidence of obstruction. Bilateral renal perinephric stranding, right greater than left. PELVIC ORGANS/BLADDER: Bladder is decompressed and there is a Brand catheter in place. No definite focal lesions. PERITONEUM/RETROPERITONEUM: No free air or fluid. LYMPH NODES: No interval change in enlarged retrocaval nodes which measure 2.1 cm in short axis (series 3, image 55) and 2.5 cm in short axis (series 3, image 65). Stable enlarged aortocaval node which measures 1.3 cm in short axis (series 3, image 62). No other retroperitoneal or any intra-abdominal, pelvic or inguinal adenopathy.. VESSELS: Mild atherosclerotic calcification of the abdominal aorta. GI TRACT: No bowel dilation or evidence of obstruction. No pericolonic inflammatory changes. Scattered diverticula in the distal descending and sigmoid colon without diverticulitis. Appendix is normal. BONES AND SOFT TISSUES: No aggressive lytic or suspicious focal sclerotic lesions. Multilevel degenerative disks in the lower thoracic and lumbosacral spine, worse at L4-L5 and L5-S1, with grade 1 anterolisthesis of L4 on L5. Bilateral L4-L5 facet hypertrophy with moderate canal stenosis at L4-L5 and L5-S1. Soft tissues are grossly unremarkable. IMPRESSION: 1. No renal or ureteral calculi. No left hydronephrosis or obstruction. 2. Infiltrating mass involving the superior and mid aspects of the right kidney, best visualized on prior CT abdomen and pelvis 10/09/2019, which extends into the right renal sinus and renal pelvis. Given the infiltrative nature, renal lymphoma is a primary consideration. RCC or urothelial malignancy are secondary considerations. 3. Interval increase in size of ill-defined 6.7 cm mass in the hepatic dome, likely reflecting metastatic disease. 4. Enlarged retrocaval adenopathy, likely metastatic. 5. Stable indeterminate 4 mm pulmonary nodule in the right lower lobe. Signed by: Dr. Christopher Renner M.D. on 10/28/2019 3:42 AM Dictated By: CHRISTOPHER RENNER MD 1 Transcribed By: HONEY on 10/28/19341 COPY TO: VIOLA DALEY MD FNA CT GUIDED 1ST LESION 2019-10-23 16:05:00 [place] [address] Patient Name: TONYA YORK III MR #: [id number] : 1950 Age/Sex: 69/M Req #: [id number] Adm Physician: Ordered by: ROXANN WELLS MD Report #: [id number] Location: CT Room/Bed: Procedure: [id number] IR/FNA CT GUIDED 1ST LESION Exam Date: 10/23/19 Exam Time: 1332 REPORT STATUS: Signed PROCEDURE: CT-guided biopsy Procedural Personnel Attending physician(s): Sierra Chong MD Fellow physician(s): None Resident physician(s): None Advanced practice provider(s): None Pre-procedure diagnosis: Retroperitoneal lymphadenopathy, renal mass Post-procedure diagnosis: Same Indication: Histopathologic diagnosis Previous biopsy of same target (QCDR): No Additional clinical history: None Complications: No immediate complications. IMPRESSION: CT-guided biopsy of right retroperitoneal lymphadenopathy. Plan: Specimen(s) sent for evaluation. PROCEDURE SUMMARY: - Percutaneous CT-guided core needle and fine needle aspiration biopsy biopsy - Additional procedure(s): None PROCEDURE DETAILS: Pre-procedure Reference imaging for biopsy target: CT abdomen/pelvis 10/09/2019 Consent: Informed consent for the procedure including risks, benefits and alternatives was obtained and time-out was performed prior to the procedure. P reparation: The site was prepared and draped using maximal sterile barrier technique including cutaneous antisepsis. Anesthesia/sedation Level of anesthesia/sedation: Moderate sedation (conscious sedation) 1mg Versed, 50mcg Fentanyl Anesthesia/sedation administered by: Independent trained observer under attending supervision with continuous monitoring of the patient?s level of consciousness and physiologic status Total intra-service sedation time (minutes): 30 Imaging prior to biopsy The patient was positioned prone. Initial imaging was performed using noncontrast CT. Biopsy target: - Maximal diameter (cm): 3.5 - Location: Right retroperitoneal Other findings: None Biopsy Local anesthesia was administered. Under CT guidance, the biopsy needle was advanced to the target and biopsy was performed. Coaxial needle: 17 gauge Core needle biopsy device: Sigma Force Core needle size: 18 gauge Number of core specimens: 4 Fine needle aspiration device: Chiba Fine needle size: 22g Number of FNA specimens: 3 On-site biopsy touch preparation: Yes Additional sampling recommendations: None Preliminary assessment of sample adequacy: Adequate Needle removal The biopsy needle was removed and a sterile dressing was applied. Tract embolization: None Imaging following biopsy Immediate post-biopsy imaging was performed using noncontrast CT. Post-biopsy imaging findings: No hematoma Contrast Contrast agent: None Contrast volume (mL): [address] dose length product (mGy-cm): 1499 Additional Details Additional description of procedure: None Equipment details: None Specimens removed: Biopsy samples as detailed above Estimated blood loss (mL): Less than 10 Standardized report: [email or web address] Attestation Signer name: Sierra Chong MD I attest that I was present for the entire procedure. I reviewed the stored images and agree with the report as written. Signed by: Sierra Chong MD on 10/23/2019 4:07 PM Dictated By: SIERRA CHONG MD 160 Transcribed By: HONEY on 10/23/19 1607 COPY TO: ROXANN WELLS MD BIOPSY LYMPH NODE 2019-10-23 16:05:00 [place] [address] Patient Name: TONYA YORK III MR #: [id number] : 1950 Age/Sex: 69/M Req #: [id number] Adm Physician: Ordered by: ROXANN WELLS MD Report #: [id number] Location: [place] Room/Bed: Procedure: [id number] IR/BIOPSY LYMPH NODE Exam Date: 10/23/19 Exam Time: 1332 REPORT STATUS: Signed PROCEDURE: CT-guided biopsy Procedural Personnel Attending physician(s): Sierra Chong MD Fellow physician(s): None Resident physician(s): None Advanced practice provider(s): None Pre-procedure diagnosis: Retroperitoneal lymphadenopathy, renal mass Post-procedure diagnosis: Same Indication: Histopathologic diagnosis Previous biopsy of same target (QCDR): No Additional clinical history: None Complications: No immediate complications. IMPRESSION: CT-guided biopsy of right retroperitoneal lymphadenopathy. Plan: Specimen(s) sent for evaluation. PROCEDURE SUMMARY: - Percutaneous CT-guided core needle and fine needle aspiration biopsy biopsy - Additional procedure(s): None PROCEDURE DETAILS: Pre-procedure Reference imaging for biopsy target: CT abdomen/pelvis 10/09/2019 Consent: Informed consent for the procedure including risks, benefits and alternatives was obtained and time-out was performed prior to the procedure. Preparation: The site was prepared and draped using maximal sterile barrier technique including cutaneous antisepsis. Anesthesia/sedation Level of anesthesia/sedation: Moderate sedation (conscious sedation) 1mg Versed, 50mcg Fentanyl Anesthesia/sedation administered by: Independent trained observer under attending supervision with continuous monitoring of the patient?s level of consciousness and physiologic status Total intra-service sedation time (minutes): 30 Imaging prior to biopsy The patient was positioned prone. Initial imaging was performed using noncontrast CT. Biopsy target: - Maximal diameter (cm): 3.5 - Location: Right retroperitoneal Other findings: None Biopsy Local anesthesia was administered. Under CT guidance, the biopsy needle was advanced to the target and biopsy was performed. Coaxial needle: 17 gauge Core needle biopsy device: Sigma Force Core needle size: 18 gauge Number of core specimens: 4 Fine needle aspiration device: Chiba Fine needle size: 22g Number of FNA specimens: 3 On-site biopsy touch preparation: Yes Additional sampling recommendations: None Preliminary assessment of sample adequacy: Adequate Needle removal The biopsy needle was removed and a sterile dressing was applied. Tract embolization: None Imaging following biopsy Immediate post-biopsy imaging was performed using noncontrast CT. Post-biopsy imaging findings: No hematoma Contrast Contrast agent: None Contrast volume (mL): [address] dose length product (mGy-cm): 1499 Additional Details Additional description of procedure: None Equipment details: None Specimens removed: Biopsy samples as detailed above Estimated blood loss (mL): Less than 10 Standardized report: [email or web address] Attestation Signer name: Sierra Chong MD I attest that I was present for the entire procedure. I reviewed the stored images and agree with the report as written. Signed by: Sierra Chong MD on 10/23/2019 4:07 PM Dictated By: SIERRA CHONG MD 06 Transcribed By: HONEY on 10/23/191606 COPY TO: ROXANN WELLS MD CT ABDOMEN/PELVIS WOW 2019-10-09 15:18:00 [place] [address] Patient Name: TONYA YORK III MR #: [id number] : 1950 Age/Sex: 69/M Req #: [id number] Adm Physician: Ordered by: KEKE NIELSEN MD Report #: [id number] Location: ER Room/Bed: Procedure: [id number] CT/CT ABDOMEN/PELVIS WOW Exam Date: 10/09/19 Exam Time: 1400 REPORT STATUS: Signed EXAM: CT Abdomen and Pelvis WITHOUT and WITH intravenous contrast - Hematuria protocol INDICATION: Hematuria COMPARISON: Renal ultrasound 05/26/2019, CT abdomen and pelvis 03/24/2019, abdominal MRI of 05/17/2019 TECHNIQUE: Abdomen and pelvis were scanned utilizing a multidetector helical scanner from the lung base to the pubic symphysis before and after administration of IV contrast. Coronal and sagittal reformations were obtained. Hematuria protocol was used. Scan was performed prior to contrast administration and during portal venous phase. IV CONTRAST: 100 mL of Isovue 370 ORAL CONTRAST: Water COMPLIC ATIONS: None RADIATION DOSE: Total DLP: 1683 mGy*cm Dose modulation, iterative reconstruction, and/or weight based adjustment of the mA/kV was utilized to reduce the radiation dose to as low as reasonably achievable. FINDINGS: LOWER THORAX: 4 mm right lower lobe pulmonary nodule (axial image 17). HEPATOBILIARY: Heterogeneous hypodensity at the posterior dome of liver is new from prior cross sectional imaging. SPLEEN: No splenomegaly. PANCREAS: No focal masses or ductal dilatation. ADRENALS: No adrenal nodules. KIDNEYS/URETERS: No renal calculi. Hypoenha ncing infiltrative process centered about the upper pole of the right kidney with heterogeneous appearance appears increased in size compared to the prior CT of 03/24/2019. PELVIC ORGANS/BLADDER: The prostate measures up to 4.7 x 4.2 x 4.5 cm (volume estimate 47cc) PERITONEUM / RETROPERITONEUM: New retroperitoneal lymphadenopathy measures up to 3.3 x 2.3cm (aortocaval, axial image 27) and 1.9 x 1.8 cm (immediately anterior to aorta, axial image 39). No free air or free fluid. VESSELS: Mild scattered athetotic calcifications of the nonaneurysmal abdominal aorta and major branches. GI TRACT: Mild diverticulosis. No CT evidence of diverticulitis. No abnormal bowel thickening. No bowel obstruction. Normal appendix. BONES AND SOFT TISSUES: No acute osseous injury. No suspicious lytic or blastic lesion. Grade 1 anterolisthesis at L4-5. IMPRESSION: Interval increase in size and heterogeneity of infiltrative process centered about the upper pole of the right kidney, concerning for malignancy. New retroperitoneal lymphadenopathy up to 3.3 x 2.3cm is concerning for metastasis. If prior biopsy was non- diagnostic, these nodes are amenable to percutaneous biopsy. Posterior dome of liver hypodensity is new compared to prior cross sectional imaging. Although incompletely characterized on this exam, this could also represent metastatic disease. Dedicated liver MRI would be useful for further characterization. Signed by: Sierra Chong MD on 10/09/2019 3:53 PM Dictated By: SIERRA CHONG MD 52 Transcribed By: HONEY on 10/09/191552 COPY TO: KEKE NIELSEN MD Blood leukocytes automated count (number/volume) 2019-10-09 13:00:00 Test Item White Blood Count (test code = 6690-2) 6.16 4.8-10.8 [facility] count (number/volume)2019-10-09 13:00:00* Test Item Value Reference Range Interpretation Comments Red Blood Count (test code = 789-8) 4.29 4.3-5.7 [facility] hemoglobin measurement (moles/volume)2019-10-09 13:00:00* Test Item Value Reference Range Interpretation Comments Hemoglobin (test code = 34299-5) 12.8 14.0-18.0 [facility] CenterAutomated blood hematocrit (volume fraction)2019-10-09 13:00:00* Test Item Value Reference Range Interpretation Comments Hematocrit (test code = 4544-3) 38.8 38.2-49.6 [facility] CenterAutomated erythrocyte mean corpuscular yurdtu7596-39-01 13:00:00* Test Item Value Reference Range Interpretation Comments Mean Corpuscular Volume (test code = 787-2) 90.4 81-99 [facility] CenterAutomated erythrocyte mean corpuscular hemoglobin (mass per erythrocyte)2019-10-09 13:00:00* Test Item Value Reference Range Interpretation Comments Mean Corpuscular Hemoglobin (test code = 785-6) 29.8 28-32 [facility] CenterAutomated erythrocyte mean corpuscular hemoglobin concentration measurement (mass/volume)2019-10-09 13:00:00* Test Item Value Reference Range Interpretation Comments Mean Corpuscular Hemoglobin Concent (test code = 786-4) 33.0 31-35 [facility] CenterRDW ReeTy-Ujo6849-29-29 13:00:00* Test Item Value Reference Range Interpretation Comments Red Cell Distribution Width (test code = 57419-7) 12.7 11.7 -14.4 [facility] CenterAutomated blood platelet count (count/volume)2019-10-09 13:00:00* Test Item Value Reference Range Interpretation Comments Platelet Count (test code = 777-3) 240 140-360 [facility] CenterAutomated blood segmented neutrophil count as percentage of total gggkhdfdxg5502-52-92 13:00:00* Test Item Value Reference Range Interpretation Comments Neutrophils (%) (Auto) (test code = 50065-3) 67.6 38.7-80.0 [facility] CenterAutomated blood lymphocyte count as percentage ot total tzcyplutyt0245-86-88 13:00:00* Test Item Value Reference Range Interpretation Comments Lymphocytes (%) (Auto) (test code = 736-9) 21.3 18.0-39.1 [facility] CenterAutomated blood monocyte count as percentage of total tjfgyicqys3857-69-96 13:00:00* Test Item Value Reference Range Interpretation Comments Monocytes (%) (Auto) (test code = 5905-5) 8.3 4.4-11.3 [facility] CenterAutomated blood eosinophil count as percentage of total hfbyyhrgqw9731-52-22 13:00:00* Test Item Value Reference Range Interpretation Comments Eosinophils (%) (Auto) (test code = 713-8) 1.8 0.0-6.0 [facility] CenterAutomated blood basophil count as percentage of total ygswukyzvx5135-19-20 13:00:00* Test Item Value Reference Range Interpretation Comments Basophils (%) (Auto) (test code = 706-2) 0.5 0.0-1.0 [facility] CenterFluoroscopic procedure less than one hour hlvophew8893-78-03 13:00:00* Test Item Value Reference Range Interpretation Comments IM GRANULOCYTES % (test code = IM GRANULOCYTES %) 0.5 0.0- 1.0 [facility] CenterAutomated blood neutrophil count 2019-10-09 13:00:00* Test Item Value Reference Range Interpretation Comments Neutrophils # (Auto) (test code = 751-8) 4.2 2.1-6.9 [facility] CenterBlood lymphocytes count (number/volume) 2019-10-09 13:00:00* Test Item Value Reference Range Interpretation Comments Lymphocytes # (Auto) (test code = 13963-7) 1.3 1.0-3.2 [facility] CenterBlood monocytes automated count (number/volume)2019-10-09 13:00:00* Test Item Value Reference Range Interpretation Comments Monocytes # (Auto) (test code = 742-7) 0.5 0.2-0.8 [facility] CenterAutomated blood eosinophil count 2019-10-09 13:00:00* Test Item Value Reference Range Interpretation Comments Eosinophils # (Auto) (test code = 711-2) 0.1 0.0-0.4 [facility] CenterAutomated blood basophil count (count/volume)2019-10-09 13:00:00* Test Item Value Reference Range Interpretation Comments Basophils # (Auto) (test code = 704-7) 0.0 0.0-0.1 [facility] CenterFluoroscopic procedure less than one hour pefziast9706-98-21 13:00:00* Test Item Value Reference Range Interpretation Comments Absolute Immature Granulocyte (auto (barbie t code = Absolute Immature Granulocyte (auto) 0.03 0-0.1 [facility] CenterProthrombin time (PT) in platelet poor plasma by coagulation qnnjo2302-26-33 13:00:00* Test Item Value Reference Range Interpretation Comments Prothrombin Time (test code = 5902-2) 13.3 11.9-14.5 [facility] CenterINR in Platelet poor plasma by Coagulation dehnq2714-08-57 13:00:00* Test Item Value Reference Range Interpretation Comments Prothromb Time International Ratio (test code = 6301-6) 0.96 Oral Anticoagulant Therapy INR Values:1. Low Intensity Therapy 1.5 - 2.02 . Moderate Intensity Therapy 2.0 - 3.03. High Intensity Therapy(1) 2.5 - 3. 54. High Intensity Therapy(2) 3.0 - 4.05. Panic Value INR > 5.0 [facility] CenterActivated partial thromboplastin time (aPTT) in platelet poor plasma by coagulation wzwyl7448-12-52 13:00:00* Test Item Value Reference Range Interpretation Comments Activated Partial Thromboplast Time (test code = 83156-8) 36.3 23.8-35.5 [facility] sodium measurement (moles/volume)2019-10-09 13:00:00* Test Item Value Reference Range Interpretation Comments Sodium Level (test code = 2951-2) 137 136-145 [facility]ere[facility] or plasma potassium measurement (moles/volume)2019-10-09 13:00:00* Test Item Value Reference Range Interpretation Comments Potassium Level (test code = 2823-3) 4.8 3.5-5.1 [facility] or plasma chloride measurement (moles/volume)2019-10-09 13:00:00* Test Item Value Reference Range Interpretation Comments Chloride Level (test code = 2075-0) 103 98-107 [facility]ere[facility] or plasma carbon dioxide, total measurement (moles/volume)2019-10-09 13:00:00* Test Item Value Reference Range Interpretation Comments Carbon Dioxide Level (test code = 2028-9) 26 22- [facility]ererum or plasma anion whk1669-82-03 13:00:00* Test Item Value Reference Range Interpretation Comments Anion Gap (test code = 04925-3) 12.8 8-16 [facility] or plasma urea nitrogen measurement (mass/volume)2019-10-09 13:00:00* Test Item Value Reference Range Interpretation Comments Blood Urea Nitrogen (test code = 3094-0) 15 7-26 [facility]ere[facility] or plasma creatinine measurement (mass/volume)2019-10-09 13:00:00* Test Item Value Reference Range Interpretation Comments Creatinine (test code = 2160-0) 1.40 0.72-1.25 [facility]ererum or plasma urea nitrogen/creatinine mass eoick5279-89-96 13:00:00* Test Item Value Reference Range Interpretation Comments BUN/Creatinine Ratio (test code = 3097-3) 11 6-25 [facility] CenterEstimated glomerular filtration rate (GFR) pjvhumnosmxfp4302-60-19 13:00:00* Test Item Value Reference Range Interpretation Comments Estimat Glomerular Filtration Rate (test code = 210320308) 51 >60 Ranges were taken from the National Kidney Disease Education Program and the [facility] literature.Reference ranges:60 or greater: Pbxuys69-99 ( for 3 consecutive months): Chronic kidney disease 15 or less: Kidney failureCovenant Medical CenterGlucose oxjiznwafus1450-00-03 13:00:00* Test Item Value Reference Range Interpretation Comments Glucose Level (test code = OMM3826) 96 74-118 [facility]ere[facility] or plasma calcium measurement (mass/volume)2019-10-09 13:00:00* Test Item Value Reference Range Interpretation Comments Calcium Level (test code = 83821-7) 10.1 8.4-10.2 [facility]ererum or plasma total bilirubin measurement (mass/volume)2019-10-09 13:00:00* Test Item Value Reference Range Interpretation Comments Total Bilirubin (test code = 1975-2) 0.6 0.2-1.2 [facility] CenterFluoroscopic procedure less than one hour awaxanlp1359-52-49 13:00:00* Test Item Value Reference Range Interpretation Comments Aspartate Amino Transf (AST/SGOT) (test code = Aspartate Amino Transf (AST/SGOT)) 23 5-34 [facility]ererum or plasma alanine aminotransferase measurement (enzymatic activity/volume)2019-10-09 13:00:00* Test Item Value Reference Range Interpretation Comments Alanine Aminotransferase (ALT/SGPT) (test code = 1742-6) 16 0-55 [facility]ere[facility] or plasma protein measurement (mass/volume)2019-10-09 13:00:00* Test Item Value Reference Range Interpretation Comments Total Protein (test code = 2885-2) 8.2 6.5-8.1 [facility]ere[facility] or plasma albumin measurement (mass/volume)2019-10-09 13:00:00* Test Item Value Reference Range Interpretation Comments Albumin (test code = 1751-7) 4.2 3.5-5.0 [facility] CenterPlasma globulin measurement (mass/volume) 2019-10-09 13:00:00* Test Item Value Reference Range Interpretation Comments Globulin (test code = 88628-4) 4.0 2.3-3.5 [facility] or plasma albumin/globulin mass qwfqe2304-43-36 13:00:00* Test Item Value Reference Range Interpretation Comments Albumin/Globulin Ratio (test code = 1759-0) 1.1 0.8-2.0 [facility]ererum or plasma alkaline phosphatase measurement (enzymatic activity/volume)2019-10-09 13:00:00* Test Item Value Reference Range Interpretation Comments Alkaline Phosphatase (test code = 6768-6) 111 40-150 [facility] CenterUrine color tcbyajmhzeqlj9107-88-68 12:15:00* Test Item Value Reference Range Interpretation Comments Urine Color (test code = 5778-6) YELLOW YELLOW [facility] CenterUrine pashczb4759-63-46 12:15:00* Test Item Value Reference Range Interpretation Comments Urine Clarity (test code = 24742-3) SL CLOUDY CLEAR [facility] Centerpecific gravity of Urine by Test strip 2019-10-09 12:15:00* Test Item Value Reference Range Interpretation Comments Urine Specific [place] (test code = 5811-5) 1.020 1.010-1.02 5 [facility] CenterUrine pH measurement by automated test jbybg5773-08-05 12:15:00* Test Item Value Reference Range Interpretation Comments Urine pH (test code = 45338-9) 6 5-7 [facility] CenterUrine leukocyte esterase detection by bbpxrsro3908-55-49 12:15:00* Test Item Value Reference Range Interpretation Comments Urine Leukocyte Esterase (test code = 5799-2) TRACE NEGATIVE [facility] CenterUrine nitrite hntfcknkm0727-49-74 12:15:00* Test Item Value Reference Range Interpretation Comments Urine Nitrite (test code = 06585-9) NEGATIVE NEGATIVE [facility] CenterUrine protein measurement by test strip (mass/volume)2019-10-09 12:15:00* Test Item Value Reference Range Interpretation Comments Urine Protein (test code = 5804-0) >=300 NEGATIVE [facility] CenterUrine glucose wkwutamwf2696-28-20 12:15:00* Test Item Value Reference Range Interpretation Comments Urine Glucose (UA) (test code = 2349-9) NEGATIVE NEGATIVE [facility] CenterUrine ketones detection by automated test badxt3638-36-59 12:15:00* Test Item Value Reference Range Interpretation Comments Urine Ketones (test code = 29687-1) NEGATIVE NEGATIVE [facility] CenterUrine urobilinogen measurement by test strip (mass/volume)2019-10-09 12:15:00* Test Item Value Reference Range Interpretation Comments Urine Urobilinogen (test code = 85637-2) 0.2 0.2-1 [facility] CenterUrine total bilirubin measurement (mass/volume)2019-10-09 12:15:00* Test Item Value Reference Range Interpretation Comments Urine Bilirubin (test code = 1978-6) SMALL NEGATIVE [facility] CenterUrine erythrocytes xbfuhzucq4658-74-20 12:15:00* Test Item Value Reference Range Interpretation Comments Urine Blood (test code = 16643-9) LARGE NEGATIVE [facility] CenterAutomated urine sediment leukocyte count by microscopy (number/high power field)2019-10-09 12:15:00* Test Item Value Reference Range Interpretation Comments Urine WBC (test code = 5821-4) 6-10 0-5 [facility] CenterErythrocytes detection in urine sediment by light dokaiuwwtf2681-55-88 12:15:00* Test Item Value Reference Range Interpretation Comments Urine RBC (test code = 09711-0) 21-50 0-5 [facility] CenterBacteria detection in urine sediment by light uvydnrubhs2430-52-40 12:15:00* Test Item Value Reference Range Interpretation Comments Urine Bacteria (test code = 30903-3) RARE NONE [facility] CenterEpithelial cells detection in urine sediment by light xnbvzxfigp8283-90-57 12:15:00* Test Item Value Reference Range Interpretation Comments Urine Epithelial Cells (test code = 86168-3) RARE NONE [facility] CenterBIOPSY JSNGE4041-34-30 13:27:00 [facility] [address] [address] Patient Name: TONYA YORK III MR #: [id number] : 04/1950 Age/Sex: 68/M Req #: [id number] [facility] Physician: Ordered by: ROXANN WELLS MD Report #: [id number] Location: [place] Room/Bed: Procedure: IR /BIOPSY RENAL Exam Date: 06/30/19 Exam Time: 1113 REPORT STATUS: Signed PROCEDURE: U ltrasound-guided biopsy Procedural Personnel Attending physician(s): Krystin Chong MD Fellow physician(s): None Resident physician(s): None Advanced practice provider(s): None Pre-procedure diagnosis: Right renal mass Post -procedure diagnosis: Same Indication: Right renal mass on prior imaging Pre vious biopsy of same target (QCDR): No Additional clinical history: None Complications: No immediate complications. IMPRESSION: Ultrasound-guid ed biopsy of right upper renal mass. Plan: Specimen(s) sent for evalu ation. [place] OCEDURE SUMMARY: - Percutaneous US-guided coaxial core needle biopsy - Addit ional procedure(s): None PROCEDURE DETAILS: Pre-procedure Reference imaging for biopsy target: None Consent: Informed consent for the procedure in cluding risks, benefits and alternatives was obtained and time-out was perform ed prior to the procedure. Preparation: The site was prepared and draped using maximal sterile barrier technique including cutaneous antisepsis. Anesth esia/sedation Level of anesthesia/sedation: Moderate sedation (conscious sedat ion) Anesthesia/sedation administered by: Independent trained observer under attending supervision with continuous monitoring of the patient?s level of co nsciousness and physiologic status Total intra-service sedation time (minutes) : 30 Imaging prior to biopsy The patient was positioned prone. Initial ul trasound was performed. Biopsy target: - Maximal diameter (cm): N/A - Loca tion: Right upper kidney Other findings: None Biopsy Local anesthesia was administered. Under US guidance, the biopsy needle was advanced to the tar get and biopsy was performed. Coaxial needle: 17 gauge Core needle biopsy device: Sigma Force Core needle size: 18 gauge Number of core specimens : 3 Needle removal The biopsy needle was removed and a sterile dressing w as applied. Tract embolization: None Imaging following biopsy Immediate post-biopsy ultrasound was performed. Post-biopsy imaging findings: No hemato ma Additional Details Additional description of procedure: None Equipme nt details: None Specimens removed: Biopsy samples as detailed above Estimat ed blood loss (mL): Less than 10 Standardized report: [id number] Att estation Signer name: Sierra Chong MD I attest that I was present for the ent kassy procedure. I reviewed the stored images and agree with the report as writt en. Signed by: Sierra Chong MD on 06/30/2019 1:29 PM Dictated By: KRYSTIN CHONG MD 1329 Transcribed By: HONEY on 06/30/19 1329 COPY TO: ROXANN WELLS MD RENAL RETROPERITONEAL LGEY5303-80-03 12:39:[address] [address] Patient Name: TONYA YORK III MR #: [id number] : 1950 Age/Sex: 68/M Req #: [id number] Adm Physician: Ordered by: ROXANN WELLS MD Report #: [id number] Location: Room/Bed: Procedure: [id number] US /US RENAL RETROPERITONEAL COMP Exam Date: 05/26/19 E xam Time: 1050 REPORT STATUS: Patricia castelan Renal ultrasound, 05/26/2019. History: Right renal lesion. C omparison: MRI 05/17/2019, CT 03/24/2019. Discussion: Transverse and longitud inal images of the kidneys were obtained demonstrating normal renal sizes and echogenicities. There is no evidence of hydronephrosis or renal calculus. The right kidney measures 12.4 cm and the left kidney measures 11.8 cm in length. Renal cortex measures 2.7 and 2.0 cm respectively. An ill-defined hetero geneous hypoechoic area is noted in the right renal upper pole slightly distor ting the renal sinus fat, measuring approximately 4 x 3.8 cm. This region is r elatively hypovascular on color Doppler exam and corresponds to the area of ab normality identified on recent MRI and CT. An oval anechoic structure is seen arising from the lateral aspect of the left kidney measuring 2.1 x 1.5 x 1.8 c m. The urinary bladder is unremarkable. Bilateral ureteral jets are identif ied. Bladder volume measures 220 mL. There is no evidence of free fluid. IMPRESSION: 1. Ill-defined hypoechoic region in the right renal upper pole corresponding to the CT and MRI abnormalities. Renal neoplasm cannot be e xcluded. Recommend short-term follow-up scan or ultrasound-guided biopsy. Find ings were discussed with the patient at the time of the exam. 2. Simple althea gn left renal cyst is noted. Signed by: Florentino Diaz on 05/26/2019 3:06 PM Dictated By: FLORENTINO DIAZ MD [id number] Transcribed By: HONEY on 05/26/19 2219 COPY TO: ROXANN SWAIN MD MRI ABDOMEN [id number] 16:22:[address] [address] Patient Name: TONYA YORK III MR #: [id number] : 1950 Age/Sex: 68/M Req #: [id number] [facility] Physician: Ordered by: ROXANN WELLS MD Report #: [id number] Location: MRI Room/Bed: Procedure: [id number] MR I/MRI ABDOMEN WOW Exam Date: Exam Time: REPORT STATUS: Signed MRI of the abdome n, with and without contrast, 05/17/2019. History: Left renal neoplasm . Comparison: CT 03/24/2019. Technique: Multiplanar, multisequence fawn ging of the abdomen was performed pre- and post-IV administration of gadoliniu m. Dynamic enhanced images of the kidneys were included. Discussion: The kidneys are normal in size and location bilaterally. There is no evidence of h ydronephrosis. There is an approximately 4 cm ill-defined region of heterogene ity in the upper pole of the right kidney which on precontrast images is sligh tly hypointense on T1 and T2 weighted images but containing a 2 cm focus of hy perintensity, and postcontrast is heterogeneously hypointense compared to norm al kidney on early and delayed phases. The renal artery is patent. A 1.5 cm oval circumscribed T1 hypointense T2 hyperintense nonenhancing cyst is see n arising from from the anterior aspect of the left kidney. No other lesions a re seen within the left kidney. The liver, gallbladder, spleen, patel creas, and adrenal glands are normal in appearance. The visualized loops of jia wel and osseous structures are normal. There is no evidence of adenopathy. IMPRESSION: 1. Simple benign exophytic left renal cyst. No follow-up recommended. 2..Right renal upper pole region of relatively hypovascular hete rogeneous abnormal signal intensity. Although findings may be secondary to a c ombination of ischemic/embolic insult with a hemorrhagic cyst, an atypical inf iltrating hypovascular neoplasm cannot be excluded. Consider renal ultrasound for further evaluation, short-term follow-up CT, or CT-guided biopsy of this r egion if there is high clinical suspicion. Signed by: Florentino Diaz on 05/19/2019 10:51 AM Dictated By: FLORENTINO DIAZ MD 105 Transcribed By: HONEY on 05/19/19 105 COPY TO: ROXANN WELLS MD RENAL SCAN W/MPXVK5253-16-68 14:07:[address] [address] Patient Name: TONYA YORK III MR #: [id number] : 04/1950 Age/Sex: 68/M Req #: [id number] Adm Physician: Ordered by: ROXANN WELLS MD Report #: [id number] Location: [place] Room/Bed: Procedure: [id number] NM /RENAL SCAN W/LASIX Exam Date: Exam Time: REPORT STATUS: Signed Renal Scan with [place] Clinical information: Neoplasm of left kidney Technique: F ollowing intravenous administration of 10 mCi of Tc-99m MAG3, dynamic images o f the kidneys in the posterior projection were obtained through 40 minutes. L asix 40 mg was administered intravenously at 10 minutes post injection of the tracer. Report: Left kidney: Perfusion of the left kidney is prompt. The kidney has a reniform shape. Extraction of tracer from the blood pool is normal. Clearance of tracer from the renal parenchyma is prompt. The pelvica lyceal system is not dilated. Physiologic pooling of tracer is seen within th e pelvicalyceal system. Drainage of tracer from the pelvicalyceal system is p rompt and adequate prior to administration of Lasix. No significant stasis of tracer is seen within the left ureter. Right kidney: Perfusion to the ri ght kidney is prompt. The right kidney is reduced in size with a non-reniform shape. Extraction of tracer from the blood pool by the remaining renal paren chyma is normal. Clearance of tracer from the renal parenchyma is prompt. The pelvicalyceal system is not dilated. Physiologic pooling of tracer is seen w ithin the pelvicalyceal system. Drainage of tracer from the pelvicalyceal sys tem is prompt and adequate prior to administration of Lasix. No significant s tasis of tracer is seen within the right ureter. Differential renal funct ion: The left kidney contributes 69% of total renal function and the right kid erika contributes 31% (normal 43-57%). Impression: 1. The function of the left kidney is generally normal. No hydronephrosis is present. No physiol ogically significant obstruction of the renal collecting system is present. 2. The right kidney is reduced in size and this accounts for the decreased d ifferential function of 31%. The remaining renal parenchyma has generally nor mal function. No hydronephrosis is present. No physiologically significant o bstruction of the renal collecting system is present. Signed by: Dr. Kavya Mejia M.D. on 04/25/2019 2:16 PM Dictated By: KAVYA MEJIA MD Elect ronically Signed By: KAVYA MEJIA MD on 04/25/19 1416 Transcribed By: HONEY on 04/25/19 1416 COPY TO: ROXANN WELLS MD CT ABDOMEN/PELVIS WOW 2019-03-24 16:15:00 [address] [address] Patient Name: TONYA YORK III MR #: [id number] : 1950 Age/Sex: 68/M Req #: [id number] Adm Physician: Ordered by: ROXANN WELLS MD Report #: [id number] Location: [place] Room/Bed: Procedure: [id number] CT/C T ABDOMEN/PELVIS WOW Exam Date: 03/24/19 Exam Time: 1130 REPORT STATUS: Signed CT of the abdomen and pelvis History: Renal mass Comparison: CT dated 2018. Technique: Multidetector CT scanning of the abdomen and pelvis was performed from the level of the lung bases to the inferior pubic ramus, without and with IV contrast. Scanning during the noncontrast, arterial, venous, and delayed phases was performed. Renal mass protocol was utilized. DOSE REDUCTION: The examination was performed according to departmental dose-optimization program which includes automated exposure control, adjustment of the mA and/or kV acc ording to patient size and/or use of iterative reconstruction technique. Discussion: The lung bases demonstrate minimal dependent atelectasis. An 8 mm cyst is identified in the right hepatic lobe. No suspicious hepatic lesions are salas ntified. The gallbladder is nondistended. No gallstones are identified. There is no intrahepatic or extrahepatic ductal dilatation. The spleen is within normal limits. The lateral adrenal glands are unremarkable. The pancre as is normal in attenuation and enhances homogeneously. The pancreatic ductal dilatation is present. The kidneys are normal in size. The upper pole of the right kidney demonstrates decreased enhancement which may be secondary to an ischemic insult. On delayed phase images there is a paucity of contrast excretion from the upper pole of the right kidney. The lower pole of the kidn ey excretes contrast normally. There are no kidney stones. There is no right-s ided hydronephrosis. The left kidney demonstrates normal enhancement and ex cretion. There is a 1.5 x 1.5 cm exophytic cyst arising from the lower pole of the left kidney. There are no kidney stones. There is no left-sided hydrouret eronephrosis. No filling defects are identified along the course of either ureter. The abdominal aorta is of normal course and caliber. The celiac, SM A, and FAWN are patent. There is a single right renal artery is normal caliber. The left kidney is supplied by a normal caliber main renal artery and a small caliber accessory renal artery. No filling defects are identified in either r enal artery. There is no evidence of renal artery stenosis. The stomach, small, and large bowel are nondistended. There is no evidence of obstruction. The appendix is normal. There are scattered colonic diverticula without eviden ce of acute diverticulitis. The urinary bladder is within normal limits. The prostate is not enlarged. There are no acute osseous abnormalities. Multilevel degenerative changes of the thoracolumbar spine are present. I MPRESSION: 1. Decreased perfusion of the upper pole of the right kidney whi ch may be secondary to an ischemic/embolic insult. No filling defect is identi fied within the renal arteries. 2. No renal mass is identified in either kid erika. 3. Left renal cyst. Signed by: Sachin Cornejo MD on 03/24/2019 4: 36 PM Dictated By: SACHIN CORNEJO MD [id number] Transcribed By: HONEY on 03/24/19 1636 CO PY TO: ROXANN WELLS MD [id number] 16:02:00 [place] [address] Patient Name: TONYA YORK III MR #: [id number] : 1950 Age/Sex: 68/M Req #: [id number] Adm Physician: Ordered by: ROXANN WELLS MD Report #: [id number] Location: US Room/Bed: Procedure: [id number] US/U S TESTICULAR Exam Date: 03/24/19 Exam Time: 943 REPORT STATUS: Signed HISTORY: S permatocele of epididymis, right testicular pain COMPARISON : COMMENT : Ultrasound examination of the genitalia was performed. In addition, Barrett r Doppler and spectral analysis of the testicles were also obtained. There are no prior films available for comparison. The right epididymal head measu res 1.3 x 1.0 x 1.1 cm and contains a 0.3 x 0.3 x 0.3 cm epididymal head cyst. The right testis measures 4.6 x 1.9 x 3.2 cm and appears unremarkable. The t esticle is homogeneous in echotexture. Normal flow is identified on color Dop pler. The left epididymal head measures 1.2 x 0.7 x 1.2 cm mm and appears unremarkable. The left testis measures 4.0 x 2.0 x 3.1 cm and appears unrema rkable. The testicles homogeneous in echotexture. Normal flow is identified on color Doppler. There is no evidence of varicoceles. Small bilateral hydroceles are present. IMPRESSION : 1. Right epididymal head cyst. 2. Small bilateral hydroceles. Signed by: Sachin Cornejo MD on 03/24/20 4:07 PM Dictated By: SACHIN CORNEJO MD 7 Transcribed By: HONEY on 03/31/19917 COPY TO: ROXANN WELLS MD TESTICULAR DOPPLER [id number] 16:02:00 [place] [address] Patient Name: TONYA YORK III MR #: [id number] : 1950 Age/Sex: 68/M Req #: [id number] [facility] Physician: Ordered by: ROXANN WELLS MD Report #: [id number] Location: US Room/Bed: Procedure: [id number] US/U S TESTICULAR DOPPLER LTD Exam Date: 03/24/19 Exam Ti me: 0944 REPORT STATUS: Signed HISTORY: Spermatocele of epididymis, right testicular pain COMPARISON : COMMENT : Ultrasound examination of the genitalia was performed. In ad dition, Color Doppler and spectral analysis of the testicles were also obtaine d. There are no prior films available for comparison. The right epididyma l head measures 1.3 x 1.0 x 1.1 cm and contains a 0.3 x 0.3 x 0.3 cm epididyma l head cyst. The right testis measures 4.6 x 1.9 x 3.2 cm and appears unremar kable. The testicle is homogeneous in echotexture. Normal flow is identified on color Doppler. The left epididymal head measures 1.2 x 0.7 x 1.2 cm mm a nd appears unremarkable. The left testis measures 4.0 x 2.0 x 3.1 cm and appe ars unremarkable. The testicles homogeneous in echotexture. Normal flow is identified on color Doppler. There is no evidence of varicoceles. Sma ll bilateral hydroceles are present. IMPRESSION : 1. Right epididymal head cyst. 2. Small bilateral hydroceles. Signed by: Sachin Cornejo MD on 03/24/2019 4:07 PM Dictated By: SACHIN CORNEJO MD Electronically S igned By: SACHIN CORNEJO MD on 03/31/19917 Transcribed By: HONEY on 03/31 COPY TO: ROXANN WELLS MD CT ABDOMEN/PELVIS [id number] 13:52:00 [place] [address] Patient Name: TONYA YORK III MR #: [id number] : 1950 Age/Sex: 68/M Req #: [id number] Adm Physician: Ordered by: KEKE NIELSEN MD Report #: [id number] Location: ER Room/Bed: Procedure: [id number] C T/CT ABDOMEN/PELVIS WO Exam Date: 03/16/19 Exam Time : 1314 REPORT STATUS: Signed CT of the abdomen and pelvis History: Right flank pain Comparison: None a vailable. Technique: Multidetector CT scanning of the abdomen and pelvis was perform ed from the level of the lung bases to the inferior pubic ramus without contra st. DOSE REDUCTION: The examination was performed according to departmental dose-optimization program which includes automated exposure control, adjustme nt of the mA and/or kV according to patient size and/or use of iterative rec onstruction technique. Discussion: The lung bases are clear. Lack of IV contra st limits evaluation of solid and hollow visceral organs. In the right hep atic lobe there is a 8 mm hypodensity which is too small to characterize but i s most likely a cyst. No suspicious hepatic lesions are identified. The gallbl adder is present nondistended. No radiopaque gallstones are identified. There is no intrahepatic or extrahepatic biliary dilatation. The spleen is within normal limits. The bilateral adrenal glands are unremarkable. There i s no pancreatic ductal dilatation or peripancreatic inflammatory stranding. The kidneys are normal in size. No kidney stones are identified. There is no hydroureteronephrosis bilaterally. The stomach, small, and large bowel ar e nondistended. There is no evidence of obstruction. The appendix is normal in caliber. Scattered diverticula are present throughout the colon. There is no evidence of acute diverticulitis. There is no free intraperitoneal air or a scites. The abdominal aorta is of normal course and caliber. No enlarg ed abdominal or retroperitoneal lymph nodes are identified. The urinary lyly dder is within normal limits. The prostate is not enlarged. Multilevel degenerative changes of the thoracolumbar spine which are most pronounced at L4-L5 where there is grade 1 anterolisthesis of L4 on L5. IMPRESSION: 1. No evidence of nephroureterolithiasis. 2. Normal appendix. 3. Colonic di verticulosis without evidence of acute diverticulitis. Signed by: Sachin Cornejo MD on 03/16/2019 1:59 PM Dictated By: SACHIN CORNEJO MD Electr onically Signed By: SACHIN CORNEJO MD on 03/16/19 135 Transcribed By: JC Fischer on 03/16/19 1357 COPY TO: KEKE NIELSEN MD
--- NOTE | 2019-11-10 20:11 | NUR ---
Received pt in bed awake ao x4. C/O urine draining around tip of penis with reyes catheter in place. Irrigated reyes to expel 2 clots and urine resumed to drain into reyes with no difficulty noted. Pt up to bathroom to clean self, bed changed. Pt states some relief from previous pain pill. No s/sx of acute distress noted at this time will cont to mon. Enc pt to use red string in bathroom if assistance needed.
[2019-11-10] MEDS ORDERED: ACETAMINOPHEN 1000 MG/100 ML IV PRN (20:45)
[2019-11-11] VITALS (10 sets, daily range): BP systolic 99–143; BP diastolic 64–79
[2019-11-11] MEDS: CEFAZOLIN SOD 1 GM/NS 50ML 50 ML IV SCH ×3 (05:30→21:00)
--- NOTE | 2019-11-11 05:59 | NUR ---
Pt resting in bed awake a/o x 4. C/O discomfort to right side abd r/t surgical site and occasional spasms per pt. Will med per MAR and notify md of pt spasms. Brand irrigated per orders with multiple small to moderate clots noted. Urine remains antonio color. Pt states + for passing gas. Able to make needs known to staff. VSS, no s/sx of acute distress noted, bed low and locked, call zepeda and personal items within reach. Will pass report to oncoming nurse.
--- NOTE | 2019-11-11 06:26 | NUR ---
Call placed and returned from MD regarding spasms and discomfort. Orders noted for B/O supp Will med per orders.
[2019-11-11] MEDS: HYDROCODONE/APAP 10MG-325MG TAB PO PRN ×4 (06:28→20:57)
[2019-11-11] MEDS: B&O 60MG R/S 60 MG SUPP PR PRN ×3 (06:52→21:46)
[2019-11-11 08:50] LABS: BASOPHILS % 0.4 % (0.0-1.0); EOSINOPHILS # (AUTO) 0.2 (0.0-0.4); EOSINOPHILS % 3.2 % (0.0-6.0); HEMATOCRIT 24.4 % (38.2-49.6); HEMOGLOBIN 8.2 g/dL (14.0-18.0); LYMPHOCYTES % 14.4 % (18.0-39.1); MEAN CORPUSCULAR HEMOGLOBIN 29.8 pg (28-32); MEAN CORPUSCULAR HGB CONC 33.6 g/dL (31-35); MEAN CORPUSCULAR VOLUME 88.7 fL (81-99); MONOCYTES # (AUTO) 0.7 (0.2-0.8); MONOCYTES % 9.2 % (4.4-11.3); NEUTROPHILS # (AUTO) 5.1 (2.1-6.9); PLATELET COUNT 257 x10e3/uL (140-360); RED BLOOD COUNT 2.75 x10e6/uL (4.3-5.7); RED CELL DISTRIBUTION WIDTH 13.1 % (11.7-14.4)
[2019-11-11 09:07] LABS: BLOOD UREA NITROGEN 14 mg/dL (7-26); BUN/CREATININE RATIO 12 (6-25); CALCIUM 8.6 mg/dL (8.4-10.2); CARBON DIOXIDE 24 mmol/L (22-29); CHLORIDE 100 mmol/L (98-107); CREATININE, SERUM 1.13 mg/dL (0.72-1.25); EST GLOMERULAR FILTRATION RATE > 60 ML/MIN (60-); GLUCOSE 112 mg/dL (74-118); SODIUM 134 mmol/L (136-145)
[2019-11-11] MEDS: PANTOPRAZOLE 40 MG 10ML VIAL IV SCH (09:32)
[2019-11-11] MEDS: MULTIVITAMINS/MINERALS TAB PO SCH (09:33)
[2019-11-11] MEDS: IRON SUCROSE 100 MG in SODIUM CHLORIDE 0.9% 100 ML 100 ML IV SCH (09:33)
[2019-11-11] MEDS ORDERED: ACETAMINOPHEN 1000 MG/100 ML IV SCH (18:00)
--- NOTE | 2019-11-11 19:44 | NUR ---
Nutrition LOS Note RD Recommendation for Physician: - Continue diet as ordered Plan of Care: RD following, monitoring for tolerance and adequacy Nutrition reason for involvement: LOS Primary Diagnose(s): R renal mass PMH: hypertension, dyslipidemia, enlarged prostate, hematuria, and right renal mass Ht: 69in Wt: 212# BMI: 31.3kg/m2 IBW: 160# RD Assessment: Chart reviewed. Labs and meds reviewed. 69yo M, who was admitted for right renal mass s/p right nephrectomy with right thoracoabdominal chest tube. Visited pt in the room. Pt reported good appetite with >50% meal intake. Pt denied any nausea or vomiting. No BM but passing gas. Pt denied any recent weight loss. All nutrition related questions have been answered. Will continue to follow. Current Diet: regular diet Malnutrition Evaluation (11/10) The patient does not meet criteria for a specified degree of malnutrition at this time. Will re-evaluate at follow-up as appropriate. Diet Education Needs Assessment: Diet education not indicated. Nutrition Care Level: low Signed: Carli Renteria, MS, RD, LD
--- NOTE | 2019-11-11 19:51 | NUR ---
Received pt in bed awake a/o x4. Bed in low and locked position, call light and personal items within reach. MD in to see pt, possible Button TURP to be scheduled. Patient information sheet per MD given to patient with opportunity to ask questions. No acute distress noted at this time, will continue to mon. Brand to DD remains with antonio color urine and occasional clots noted. MD aware.
[2019-11-11] MEDS ORDERED: SODIUM CHLORIDE 0.9% 250ML 250 ML ONE (20:36)
[2019-11-11] MEDS ORDERED: ACETAMINOPHEN 1000 MG/100 ML IV PRN (21:00)
[2019-11-11] MEDS: ONDANSETRON HCL INJ 2MG/ML 2ML 2 MG/ML VIAL IV PRN (22:16)
[2019-11-11] MEDS: MORPHINE SULFATE 2 MG/ML SYR 1ML IV PRN (22:16)
--- NOTE | 2019-11-11 23:01 | NUR ---
RECEIVED PATIENT IN BEDSIDE SHIFT REPORT IMMEDIATELY AFTER PATIENT TRANSFER. PATIENT RESTING IN BED AT THIS TIME. PAIN 9/10 UPON WAKING UP AND TRANSFERRING, WILL MEDICATE WHEN ABLE. SCHWAB DRAINING TO GRAVITY, WALLER RED, NO CLOTS IN TUBE NOTED AT THIS TIME. DRESSING TO R CHEST C/D/I. BETSEY DRAIN DRAINING SEROSANGUINEOUS FLUID. WANDA TO R SIDE AND FLANK WELL APPROXIMATED, SURROUNDING SKIN NORMAL. ALTERNATING PRESSURE MATTRESS ACTIVE. IV TO R HAND 22G ASYMPTOMATIC, INTACT, AND PATENT. NO NEEDS EXPRESSED AT THIS TIME. BED LOCKED IN LOWEST POSITION, SIDE RAILS UPX2, CALL LIGHT IN REACH.
[2019-11-12] VITALS (8 sets, daily range): BP systolic 115–154; BP diastolic 75–84
[2019-11-12] MEDS: MORPHINE SULFATE 2 MG/ML SYR 1ML IV PRN ×7 (00:18→22:30)
[2019-11-12] MEDS ORDERED: SODIUM CHLORIDE 0.9% 250ML 250 ML ONE ×2 (01:13→21:53)
--- NOTE | 2019-11-12 03:30 | NUR ---
PATIENT CALLED STATING HE HAD FELT SOME PRESSURE IN HIS BLADDER, THEN A RELEASE, AND THE SCHWAB LEAKED. PAIN MEDICATION GIVEN AND SCHWAB FLUSHED UNTIL NO CLOTS. PATIENT'S LINENS CHANGED AND PATIENT REQUESTED TO RINSE BOTTOM HALF OF BODY IN SHOWER. ENSURED DRESSINGS DID NOT GET WET. PATIENT ASSISTED BACK TO BED. PATIENT REFUSING NEW MARIA FERNANDA HOSE AT THIS TIME. WILL ATTEMPT AGAIN LATER.
[2019-11-12] MEDS: CEFAZOLIN SOD 1 GM/NS 50ML 50 ML IV SCH ×3 (05:03→20:49)
[2019-11-12 06:20] LABS: BASOPHILS % 0.3 % (0.0-1.0); EOSINOPHILS # (AUTO) 0.1 (0.0-0.4); EOSINOPHILS % 1.1 % (0.0-6.0); HEMATOCRIT 22.4 % (38.2-49.6); HEMOGLOBIN 7.9 g/dL (14.0-18.0); LYMPHOCYTES # (AUTO) 0.8 (1.0-3.2); LYMPHOCYTES % 11.4 % (18.0-39.1); MEAN CORPUSCULAR HEMOGLOBIN 32.4 pg (28-32); MEAN CORPUSCULAR HGB CONC 35.3 g/dL (31-35); MEAN CORPUSCULAR VOLUME 91.8 fL (81-99); MONOCYTES # (AUTO) 0.6 (0.2-0.8); MONOCYTES % 8.1 % (4.4-11.3); NEUTROPHILS # (AUTO) 5.6 (2.1-6.9); NEUTROPHILS % 76.6 % (38.7-80.0); PLATELET COUNT 310 x10e3/uL (140-360); RED BLOOD COUNT 2.44 x10e6/uL (4.3-5.7); RED CELL DISTRIBUTION WIDTH 13.5 % (11.7-14.4)
[2019-11-12 06:46] LABS: ANION GAP 12.2 mmol/L (8-16); BLOOD UREA NITROGEN 13 mg/dL (7-26); BUN/CREATININE RATIO 11 (6-25); CALCIUM 8.5 mg/dL (8.4-10.2); CARBON DIOXIDE 24 mmol/L (22-29); CHLORIDE 102 mmol/L (98-107); CREATININE, SERUM 1.17 mg/dL (0.72-1.25); EST GLOMERULAR FILTRATION RATE > 60 ML/MIN (60-); GLUCOSE 127 mg/dL (74-118); POTASSIUM 4.2 mmol/L (3.5-5.1); SODIUM 134 mmol/L (136-145)
--- NOTE | 2019-11-12 07:20 | NUR ---
bedside shift report received pt in stable condition, co of pain 10/19 will give prn meds as per ordered, r fa 20g no ss of infiltration noted, reyes to bsd with antonio urine noted, r flank maxi noted intact, r lateral chest dsg c/d/i, no other co vocied, call light in reach will continue to montior
[2019-11-12] MEDS: HYDROCODONE/APAP 10MG-325MG TAB PO PRN ×3 (07:46→21:21)
[2019-11-12] MEDS: PANTOPRAZOLE 40 MG 10ML VIAL IV SCH (07:55)
[2019-11-12] MEDS: IRON SUCROSE 100 MG in SODIUM CHLORIDE 0.9% 100 ML 100 ML IV SCH (07:55)
[2019-11-12] MEDS: DOCUSATE SODIUM 100 MG CAP PO SCH ×2 (07:55→16:34)
--- NOTE | 2019-11-12 08:08 | NUR ---
reyes irrigated as per ordered pt tolerated well, no clots noted
[2019-11-12] MEDS ORDERED: SODIUM CHLORIDE 0.9% 250ML 250 ML IV ONE (09:45)
[2019-11-12] MEDS: FUROSEMIDE INJ 10 MG/ML 2 ML VIAL IV PRN (16:15)
--- NOTE | 2019-11-12 19:30 | NUR ---
PATIENT RESTING IN BED AT THIS TIME. NO PAIN NOTED OR REPORTED. NO S&S OF DISTRESS NOTED. TELE MONITOR IS ON. SCHWAB IN PLACE. CALL LIGHT WITHIN REACH. INSTRUCT TO CALL FOR ASSISTANCE. BED LOCKED IN LOWEST POSITION, SIDE RAILS UPX2, CALL LIGHT IN REACH.
--- NOTE | 2019-11-12 22:15 | NUR ---
INITIATED BLOOD TRANSFUSION. VERIFIED WITH 2ND NURSE. VITAL SIGN STABLE AT THIS TIME. NO S/S OF REACTION. CONTINUE TO MONITOR CLOSELY
[2019-11-12] MEDS: ONDANSETRON HCL INJ 2MG/ML 2ML 2 MG/ML VIAL IV PRN (22:30)
[2019-11-13] VITALS (8 sets, daily range): BP systolic 113–150; BP diastolic 68–91
--- NOTE | 2019-11-13 00:20 | NUR ---
BLOOD TRANSFUSION COMPLETED. VITAL SIGN STABLE AT THIS TIME
[2019-11-13] MEDS: FUROSEMIDE INJ 10 MG/ML 2 ML VIAL IV PRN (01:00)
[2019-11-13] MEDS: ONDANSETRON HCL INJ 2MG/ML 2ML 2 MG/ML VIAL IV PRN (02:41)
[2019-11-13] MEDS: MORPHINE SULFATE 2 MG/ML SYR 1ML IV PRN ×3 (02:41→07:35)
[2019-11-13] MEDS: B&O 60MG R/S 60 MG SUPP PR PRN (03:46)
[2019-11-13] MEDS: CEFAZOLIN SOD 1 GM/NS 50ML 50 ML IV SCH (05:14)
[2019-11-13 05:30] LABS: BASOPHILS % 0.4 % (0.0-1.0); EOSINOPHILS # (AUTO) 0.1 (0.0-0.4); EOSINOPHILS % 1.2 % (0.0-6.0); HEMATOCRIT 33.9 % (38.2-49.6); HEMOGLOBIN 11.5 g/dL (14.0-18.0); LYMPHOCYTES % 10.2 % (18.0-39.1); MEAN CORPUSCULAR HEMOGLOBIN 30.3 pg (28-32); MEAN CORPUSCULAR HGB CONC 33.9 g/dL (31-35); MEAN CORPUSCULAR VOLUME 89.2 fL (81-99); MONOCYTES # (AUTO) 0.9 (0.2-0.8); MONOCYTES % 8.5 % (4.4-11.3); NEUTROPHILS # (AUTO) 7.8 (2.1-6.9); NEUTROPHILS % 77.5 % (38.7-80.0); PLATELET COUNT 324 x10e3/uL (140-360); RED CELL DISTRIBUTION WIDTH 14.2 % (11.7-14.4)
[2019-11-13 06:02] LABS: ANION GAP 17.3 mmol/L (8-16); CALCIUM 9.5 mg/dL (8.4-10.2); CREATININE, SERUM 1.31 mg/dL (0.72-1.25); POTASSIUM 4.3 mmol/L (3.5-5.1)
--- NOTE | 2019-11-13 07:16 | NUR ---
ASSUMED CARE. AAOX3. ACYANOTIC. STANDING UP IN ROOM REPORTING PAIN OF 10/10 AT SURGICAL SITE. PREPARING TO ADMINISTER PAIN MEDICATION PER ORDER. PROVIDED EDUCATION OF FREQUENCY OF MEDICATION. PATIENT VERBALIZED UNDERSTANDING. CALL LIGHT IN REACH. BED LOW AND LOCKED.
[2019-11-13] MEDS: DOCUSATE SODIUM 100 MG CAP PO SCH ×2 (08:11→16:13)
[2019-11-13] MEDS ORDERED: HYDRALAZINE HCL 20 MG/ML VIAL IV PRN (08:15)
[2019-11-13] MEDS ORDERED: BISACODYL 5 MG TAB EC PO PRN (08:15)
[2019-11-13] MEDS ORDERED: BISACODYL 10 MG SUPP PR PRN (08:15)
[2019-11-13] MEDS ORDERED: ONDANSETRON HCL INJ 2MG/ML 2ML 2 MG/ML VIAL IV PRN (08:15)
[2019-11-13] MEDS: PANTOPRAZOLE 40 MG 10ML VIAL IV SCH (08:54)
[2019-11-13] MEDS: SODIUM CHLORIDE 0.9% 1000ML 1,000 ML IV SCH ×2 (08:54→22:00)
[2019-11-13] MEDS: AMLODIPINE BESYLATE 5 MG TAB PO SCH (08:54)
[2019-11-13] MEDS: HYDROCODONE/APAP 7.5MG-325MG 1 EA TAB PO PRN ×2 (08:58→16:14)
[2019-11-13] MEDS ORDERED: IOPAMIDOL 300MG/ML 50ML INFUS..BTL IV ONE (13:18)
[2019-11-13] MEDS ORDERED: B&O 60MG R/S 60 MG SUPP PR ONE (13:18)
--- NOTE | 2019-11-13 13:40 | NUR ---
AAOX3. ACYANOTIC. TRANSFERRED TO OR FOR SCHEDULED PROCEDURE VIA STRETCHER BY TRANSPORT STAFF AT APPROXIMATELY 1330. NO DISTRESS NOTED. SPOUSE WAS PRESENT AT BEDSIDE BEFORE TRANSFER.
[2019-11-13] MEDS ORDERED: PIPER-TAZ 3.375 GM 50 ML ONE (13:59)
[2019-11-13] MEDS ORDERED: ONDANSETRON HCL INJ 2MG/ML 2ML 2 MG/ML VIAL ONE (14:35)
[2019-11-13] MEDS ORDERED: ETOMIDATE 2 MG/ML 10 ML INJ IV ONE (14:35)
[2019-11-13] MEDS ORDERED: DEXAMETHASONE SOD PHOS INJ 4 MG/ML VIAL ONE (14:35)
[2019-11-13] MEDS ORDERED: SEVOFLURANE INHAL SOLN 250 ML PEN BTL ONE (14:35)
[2019-11-13] MEDS ORDERED: ACETAMINOPHEN 1000 MG/100 ML IV ONE (14:35)
[2019-11-13] MEDS ORDERED: LIDOCAINE HCL 2% LOCAL INJ 5 ML SDV VIAL INJ ONE (14:35)
[2019-11-13] MEDS ORDERED: PROPOFOL IV EMULSION 10 MG/ML 20 ML VIAL ONE (14:35)
[2019-11-13] MEDS ORDERED: PHENAZOPYRIDINE HCL 100 MG TAB PO PRN (15:00)
[2019-11-13] MEDS: TAMSULOSIN HCL 0.4 MG CAP PO SCH (16:13)
--- NOTE | 2019-11-13 16:33 | NUR ---
PATIENT RESTING IN BED. CONTINUOUS BLADDER IRRIGATION FLOWING CURRENTLY. URINE NOTED TO URINARY SCHWAB CATHETER TUBING CLEAR. NO SEDIMENT NOTED.
--- NOTE | 2019-11-13 19:08 | NUR ---
Received pt in bed asleep. No s/sx of distress, CBI remains clear pale urine noted. IVF infusing no diff. Bed low and locked, call light and personal items in reach. Will cont to mon
[2019-11-13] MEDS: PIPERACILLIN/TAZO 2.25 GM 50 ML IV SCH (22:00)
[2019-11-13] MEDS: MORPHINE SULFATE INJ 4 MG/ML INJ 1ML IV PRN (22:40)
[2019-11-14] VITALS (7 sets, daily range): BP systolic 107–139; BP diastolic 67–78
[2019-11-14] MEDS: HYDROCODONE/APAP 7.5MG-325MG 1 EA TAB PO PRN ×5 (00:20→23:57)
[2019-11-14] MEDS: MORPHINE SULFATE INJ 4 MG/ML INJ 1ML IV PRN ×6 (01:35→20:45)
[2019-11-14 05:54] LABS: BASOPHILS % 0.4 % (0.0-1.0); EOSINOPHILS # (AUTO) 0.1 (0.0-0.4); EOSINOPHILS % 1.1 % (0.0-6.0); HEMATOCRIT 27.4 % (38.2-49.6); HEMOGLOBIN 8.9 g/dL (14.0-18.0); LYMPHOCYTES # (AUTO) 0.9 (1.0-3.2); LYMPHOCYTES % 11.1 % (18.0-39.1); MEAN CORPUSCULAR HEMOGLOBIN 29.5 pg (28-32); MEAN CORPUSCULAR HGB CONC 32.5 g/dL (31-35); MEAN CORPUSCULAR VOLUME 90.7 fL (81-99); MONOCYTES # (AUTO) 0.8 (0.2-0.8); MONOCYTES % 9.2 % (4.4-11.3); NEUTROPHILS # (AUTO) 6.4 (2.1-6.9); NEUTROPHILS % 75.6 % (38.7-80.0); PLATELET COUNT 242 x10e3/uL (140-360); RED BLOOD COUNT 3.02 x10e6/uL (4.3-5.7); RED CELL DISTRIBUTION WIDTH 14.5 % (11.7-14.4)
[2019-11-14] MEDS: PIPERACILLIN/TAZO 2.25 GM 50 ML IV SCH ×3 (06:00→21:25)
[2019-11-14 06:21] LABS: ANION GAP 9.3 mmol/L (8-16); BLOOD UREA NITROGEN 12 mg/dL (7-26); BUN/CREATININE RATIO 10 (6-25); CALCIUM 7.9 mg/dL (8.4-10.2); CARBON DIOXIDE 27 mmol/L (22-29); CHLORIDE 102 mmol/L (98-107); CREATININE, SERUM 1.19 mg/dL (0.72-1.25); EST GLOMERULAR FILTRATION RATE > 60 ML/MIN (60-); GLUCOSE 94 mg/dL (74-118); POTASSIUM 4.3 mmol/L (3.5-5.1); SODIUM 134 mmol/L (136-145)
--- NOTE | 2019-11-14 06:58 | NUR ---
Pt resting in bed, requesting pain medication next time it is due, states increased pain this am. Bed in low and locked position. Call zepeda and personal items within reach. Will report off to oncoming shift nurse
[2019-11-14] MEDS: AMLODIPINE BESYLATE 5 MG TAB PO SCH (08:42)
[2019-11-14] MEDS: DOCUSATE SODIUM 100 MG CAP PO SCH ×2 (08:48→16:30)
[2019-11-14] MEDS: PANTOPRAZOLE 40 MG 10ML VIAL IV SCH (08:48)
--- NOTE | 2019-11-14 08:58 | NUR ---
DR. WELLS AT BEDSIDE AT APPROXIMATELY 0730AM. PHYSICIAN REMOVED TAPE FROM PENIS AND GAVE ORDERS TO REMOVE BETSEY DRAIN FROM RLQ. BETSEY DRAIN REMOVED. PATIENT TOLERATED PROCEDURE WELL. CBI FLOW REDUCED. LIGHT PINK TINGED URINE NOTED TO TUBING. NO DISTRESS CALL LIGHT IN REACH. SIDE RAILS UP X2. BED LOW AND LOCKED. PATIENT RECEIVED MORPHINE IV ORDERED FOR PAIN.
[2019-11-14] MEDS: SODIUM CHLORIDE 0.9% 1000ML 1,000 ML IV SCH ×2 (11:10→14:15)
--- NOTE | 2019-11-14 13:23 | NUR ---
ORDER RECEIVED FOR HOME HEALTH FOR SCHWAB CARE. CALL TO THE PT TO PROVIDE CHOICE. PT STATES HE DOES NOT WANT A NURSE. STATES HIS DAUGHTER HAS BEEN A NURSE FOR A LONG TIME AND SHE CAN MANAGE THE SCHWAB FOR HIM. INFORMED THE PT IF HE CHANGED HIS MIND CM COULD STILL ARRANGE HOME HEALTH FOR HIM IF NEEDED. SPOKE Briana HERNANDEZ / BEDSIDE NURSE REGARDING PT DECLINING HH SERVICES.
[2019-11-14] MEDS: TAMSULOSIN HCL 0.4 MG CAP PO SCH (16:30)
[2019-11-15] VITALS: BP 126/77
[2019-11-15] MEDS: MORPHINE SULFATE INJ 4 MG/ML INJ 1ML IV PRN ×2 (01:27→06:38)
[2019-11-15 02:17] VITALS: BP 107/67
[2019-11-15 04:00] VITALS: BP 125/87
[2019-11-15] MEDS: SODIUM CHLORIDE 0.9% 1000ML 1,000 ML IV SCH ×2 (04:05→10:15)
[2019-11-15] MEDS: HYDROCODONE/APAP 7.5MG-325MG 1 EA TAB PO PRN ×2 (04:27→09:31)
[2019-11-15 06:02] LABS: BASOPHILS % 0.4 % (0.0-1.0); EOSINOPHILS # (AUTO) 0.1 (0.0-0.4); EOSINOPHILS % 0.9 % (0.0-6.0); HEMATOCRIT 24.9 % (38.2-49.6); HEMOGLOBIN 8.7 g/dL (14.0-18.0); LYMPHOCYTES # (AUTO) 0.7 (1.0-3.2); LYMPHOCYTES % 7.3 % (18.0-39.1); MEAN CORPUSCULAR HGB CONC 34.9 g/dL (31-35); MEAN CORPUSCULAR VOLUME 94.3 fL (81-99); MONOCYTES # (AUTO) 0.7 (0.2-0.8); MONOCYTES % 7.6 % (4.4-11.3); NEUTROPHILS # (AUTO) 7.3 (2.1-6.9); NEUTROPHILS % 81.3 % (38.7-80.0); PLATELET COUNT 182 x10e3/uL (140-360); RED BLOOD COUNT 2.64 x10e6/uL (4.3-5.7); RED CELL DISTRIBUTION WIDTH 14.6 % (11.7-14.4)
[2019-11-15 06:22] LABS: ANION GAP 10.8 mmol/L (8-16); BLOOD UREA NITROGEN 13 mg/dL (7-26); BUN/CREATININE RATIO 11 (6-25); CALCIUM 7.9 mg/dL (8.4-10.2); CARBON DIOXIDE 25 mmol/L (22-29); CHLORIDE 102 mmol/L (98-107); CREATININE, SERUM 1.15 mg/dL (0.72-1.25); EST GLOMERULAR FILTRATION RATE > 60 ML/MIN (60-); GLUCOSE 105 mg/dL (74-118); POTASSIUM 3.8 mmol/L (3.5-5.1); SODIUM 134 mmol/L (136-145)
[2019-11-15] MEDS: PIPERACILLIN/TAZO 2.25 GM 50 ML IV SCH (06:37)
[2019-11-15 08:07] VITALS: BP 117/71
[2019-11-15 08:12] VITALS: BP 117/71
[2019-11-15] MEDS: PANTOPRAZOLE 40 MG 10ML VIAL IV SCH (08:30)
[2019-11-15] MEDS: DOCUSATE SODIUM 100 MG CAP PO SCH (08:30)
[2019-11-15] MEDS: AMLODIPINE BESYLATE 5 MG TAB PO SCH (08:30)
[2019-11-15] MEDS ORDERED: ONDANSETRON HCL 4 MG ORAL DISINTEGRATING TAB PO PRN (08:45)
--- NOTE | 2019-11-15 10:18 | NUR ---
HOME HEALTH DISCHARGE NOTE PATIENT ADDRESS WHERE SERVICE WILL BE RECEIVED: [id number] [address] PATIENT CONTACT NUMBER: [phone] NAME OF HOME HEALTH COMPANY: [facility] TELEPHONE/FAX NUMBER OF COMPANY: OFF: [phone] / FAX: [phone] SERVICES TO RECEIVE: [facility] ANTICIPATED DATE SERVICES WILL BEGIN: 11/16/2019 Please call the company above if you have not received a call to schedule a home visit within 24 hours of discharge.
--- NOTE | 2019-11-15 11:38 | Progress Note ---
DATE: SUBJECTIVE: The patient is doing well, status post nephrectomy for right renal mass. Chest tube was placed. It has removed. Overall improved. PHYSICAL EXAMINATION: VITAL SIGNS: Temperature 97.7, pulse of 75, and blood pressure 117/71. CHEST: Clear. ABDOMEN: Soft. NEUROLOGIC: Awake and alert. LABORATORY DATA: Reviewed. Possible discharge today where the patient overall improved. MD ANN-MARIE Storm/LAVERN /[id number]
--- NOTE | 2019-11-15 21:50 | Discharge Summary ---
CONSULTANTS: 1. Dr. Earl Onofre. 2. Dr. Harpreet Cooper. 3. Dr. Diego Nolan. FINAL DIAGNOSES: 1. Status post right radical nephrectomy. 2. Status post transurethral resection of prostate. 3. Metastatic transitional cell renal pelvis carcinoma. 4. Status post blood transfusion with acute blood loss anemia. 5. Status post iron infusion. 6. Urinary bladder outlet obstruction. 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 The patient has a radical right nephrectomy. Postoperatively, the patient had no complication. He did lose a lot of blood during his surgery and also afterwards due to gross hematuria. He also has urinary retention. He does have enlarged prostate. The patient subsequently underwent TURP procedures for urinary bladder outlet obstruction. He now has a Brand catheter in place. His hematuria has now resolved. No blood clot noticed through the Brand catheter. At this time, the patient is stable. He will go home today. He will go home with a Brand catheter, leg bag. He will need to follow up with Dr. Deigo Nolan as an outpatient. The patient will need in the near future Port-A-Cath placement for possible chemotherapy. He will also need consultation with Dr. Harpreet Cooper, where he can follow up as an outpatient. The patient is otherwise stable. He is comfortable at this time. The patient will go home. His discharge medication, he will resume except for losartan due to his elevation of BUN and creatinine. His lab work as follows. WBC 8.6, hemoglobin 8.9, hematocrit 25, platelets is 182. Chemistry; sodium 134, potassium 3.8, chloride 102, bicarb 25, BUN is 13, creatinine 1.1, glucose is 105. The patient is otherwise stable, discharged home. 1. Williamson p.r.n. 2. Levaquin for 10 days. 3. Colace for stool softener. 4. Norvasc 5 mg daily. 5. Zofran ODT p.r.n. for nausea and vomiting. DIET: The patient's diet will be regular diet. ACTIVITY: As tolerated. FOLLOW UP: As instructed as follows: 1. Dr. Diego Nolan. 2. Dr. Orlando Upton for Port-A-Cath. 3. Dr. Harpreet Cooper for his transitional cell renal carcinoma. MD NEYDA Medrano /[id number]
[2019-11-16] MEDS ORDERED: PANTOPRAZOLE SOD 40 MG TABEC PO SCH (07:30)
--- NOTE | 2019-11-21 23:55 | Operative Report ---
DATE OF PROCEDURE: 11/06/2019 SURGEON: Diego Nolan MD PREOPERATIVE DIAGNOSIS: Right kidney tumor consistent with cancer. POSTOPERATIVE DIAGNOSES: 1. Very large invasive right kidney cancer. 2. Pneumothorax. 3. Hematuria. OPERATIONS PERFORMED: 1. Cystourethroscopy with bilateral ureteral catheterization and retrograde ureteropyelography (separate procedure performed for the hematuria). 2. Interpretation of retrograde ureteropyelography. 3. Supervision of fluoroscopy, no radiologist present. 4. Right thoracoabdominal incision for exploration of the right renal mass. 5. Complicated right radical nephrectomy. 6. Right tube thoracostomy. SCAFFOLD WORKER: Krista Nolan MD. ANESTHESIA: General. COMPLICATIONS: None. CLINICAL SUMMARY: Yair Kirkland III is a 69-year-old man, who was evaluated for hematuria starting in late 2018. He underwent cystoscopy and retrograde pyelograms, which showed a stenotic infundibulum to the upper pole calyx. We dilated this ureteroscopically and found the necrotic tissue within the right upper pole. This came back as necrotic tissue upon biopsy and no sign of cancer. Imaging also was consistent with a hypovascular upper pole, but not a distinct tumor. Upon removing the stent, we performed another ureteroscopy and stent additional tissue for evaluation, that also came back as necrotic. Due to the fact that there was still some degree of suspicion in this unusual upper pole, percutaneous biopsy was done by Interventional Radiology and came back as necrotic tissue as well. As of late June, we offered the patient radical nephrectomy versus a possible partial nephrectomy, and he elected for surveillance due to the fact that we were unable to obtain any tissue that proved cancerous. The patient had a followup CT 3 months later, which showed otis enlargement in the aortocaval region and a dramatic enlargement in a short period of time of the right kidney, which was now suspicious for infiltrative cancer. The options discussed with the patient, he elected to proceed with surgery as recommended. He is aware of the risks of bleeding, infection, injury to adjacent structures, need for additional procedures and elected to proceed. Shortly preoperatively, the patient had gross hematuria requiring admission and therefore, cystoscopy and retrograde pyelograms is planned to further evaluate that. PROCEDURE IN DETAIL: Informed consent was verified. Yair Kirkland III was properly identified, taken to the operating room, placed on the operating table in supine position. Anesthesia was uneventfully begun. The patient was then carefully and gently repositioned in dorsal lithotomy position with all pressure points well padded. His genitalia were prepared and draped in usual sterile fashion. The cystoscope sheath with the visual obturator in place was atraumatically inserted into the patient's urethra. It was guided unremarkably urethra through a minimally scarred bulbar region through the normal sphincteric region into the prostate bed, which was significant for bilobar prostatic hypertrophy with kissing lateral lobes and visual obstruction, and friable prostatic urethral mucosa. We entered the patient's bladder, which showed areas of what appeared to be healing points of bleeding, which corresponded to the location of the tip of the Brand catheter. Both ureteral orifices were identified in normal anatomical position. Ureteral catheter was used to cannulate the left ureter and retrograde ureteral pyelograms were performed. It was then inserted in the right ureter and retrograde ureteral pyelograms were performed. The ureteral catheter was left in place on the right side. The cystoscope was withdrawn. A Brand catheter was placed. The ureteral catheter was integrated into the drainage system of the Brand catheter with a special adaptor. Interpretation of retrograde ureteropyelography contrast was instilled in retrograde fashion bilaterally. Left side was unremarkable. There were no tumors, no stones, no diverticula. Unobstructed drainage was observed fluoroscopically. The right side was significant for slight irregularity of the collecting system with no opacification of the upper pole calyx. The patient was then repositioned onto the operating table carefully and gently in a modified flank position with all pressure points very carefully well padded. His chest, abdomen, and back were prepared and draped in usual sterile fashion. An incision was made between the 9th and the 10th rib and extended in a thoracoabdominal fashion. We dissected right above the 10th rib and we entered the chest. We initially started the dissection as an extraperitoneal dissection, but it was obvious that this was not going to be possible given the large size of the tumor and the adherent nature of the overlying posterior peritoneum. We completed our exposure and split the diaphragm, and utilized a self-retaining retractor. We then carefully dissected around the kidney. We initially mobilized the lower pole. We identified the ureter. We divided it and ligated it after pulling out ureteral catheter. The tumor was very large and it was very adherent. We carefully dissected the duodenum free as we continued to explore the retroperitoneum. Eventually, we isolated the kidney as much as possible. It was obvious that this tumor was penetrating through the renal parenchyma and onto the posterior body wall. It was also very obvious that a complete cancer ablation with a surgical procedure was not possible in this case. We isolated the hilum as much as we could, but it was not possible to fully isolate the artery and the vein. It was also obvious that cancer was involving the renal hilum. We utilized a vascular clamp to clamp across the packet, carefully protecting the vena cava and then after incising above the planned, we oversewed utilizing running 4-0 Prolene suture. Once we tied this down upon removing the clamp and controlled hemostasis. This maneuver was performed twice. This allowed us to remove the enlarged cancerous kidney from the field. We did identify the renal artery and additionally ligated it with silk. Copious irrigation was performed. We verified hemostasis. A Panchito drain was placed through a separate stab incision and secured to the skin with a nylon suture. Through a separate incision, tube thoracostomy was placed with a subcutaneous tunnel and was also secured to the skin with nylon suture. A U-stitch nylon suture was also placed for closure of this tunnel upon chest tube removal. We verified hemostasis and then we approximated the incision in layers. A 2-0 Vicryl suture was utilized to approximate the diaphragmatic incision, heavy Ethibond suture was utilized to approximate the costal margin. The chest and abdomen were approximated with heavy Vicryl suture in interrupted [id number] fashion in layers and the skin was approximated with skin maxi. Copious irrigation was performed at each layer of the closure. A 2 units of blood were given during the surgery due to the fact the patient's hemoglobin was 9 upon initiation of the procedure. The patient was then uneventfully reversed from anesthesia and taken to recovery room in stable condition. There were no complications to the procedure. The patient tolerated the procedure well. Sponge, needle, and instrument counts were correct x2 at the end of the case. Estimated blood loss was 1500 mL. We will eagerly await the final histopathology report. Diego Nolan MD [place]/MODL /[id number]
--- NOTE | 2019-11-22 00:01 | Operative Report ---
DATE OF PROCEDURE: 11/13/2019 SURGEON: Diego Nolan MD PREOPERATIVE DIAGNOSES: 1. Obstructive benign prostatic hypertrophy. 2. Acute renal failure. POSTOPERATIVE DIAGNOSES: 1. Obstructive benign prostatic hypertrophy. 2. Acute renal failure. OPERATIONS PERFORMED: 1. Cystourethroscopy with bilateral ureteral catheterization and retrograde ureteropyelography (separate procedure performed to evaluate the entire urinary tract in light of the acute renal failure. 2. Interpretation of retrograde ureteropyelography. 3. Supervision of fluoroscopy, no radiologist present. 4. Cystourethroscopy with transurethral resection of the prostate (separate procedure unrelated to the patient's radical nephrectomy). ANESTHESIA: General. COMPLICATIONS: None. CLINICAL SUMMARY: Yair Kirkland III is a 69-year-old man, who was admitted for a complicated radical nephrectomy. The patient had gross hematuria for two weeks prior to the surgery and he has had gross hematuria off and on since 2019. The patient postoperatively had his Brand catheter removed and following this the patient restarted with his gross hematuria and went into clot retention again. The patient desires that we resolve the situation prior to his discharge. I offered him a transurethral prostatectomy due to the fact that we did identify prostatic urethral irregularity and friability upon cystoscopic examination at the time of the radical nephrectomy. The patient also has known BPH with BPH symptomatology. He understands the risks of bleeding, infection, injury to adjacent structures, incontinence, impotence, retrograde ejaculation, and he elected to proceed. OPERATIVE PROCEDURE IN DETAIL: Informed consent was verified. Yair Kirkland III was properly identified and taken to the operating room, placed on the cystoscopy table in supine position. Anesthesia was uneventfully begun. The patient was then carefully and gently repositioned in the dorsal lithotomy position with all pressure points well padded. His genitalia were prepared and draped in usual sterile fashion. The cystoscope sheath with the visual obturator in place was atraumatically inserted into the patient's urethra, it was guided down the unremarkable urethra through normal sphincteric region through the prostate bed, which was significant for visual obstructing bilobar BPH with friable prostatic mucosa and irregularity of the prostatic urethral mucosa. We entered the patient's bladder, where panendoscopy revealed that the prior bleeding points that were noted on prior cystoscopy were gone. Trabeculations were noted, but there were no suspicious lesions and there were no tumors. One could see that there was some friability and tendency to bleeding from the prostatic urethra. Normally positioned configured ureteral orifices were identified ureteral catheter was used to cannulate each ureter and retrograde ureteral pyelograms were performed. Interpretation of retrograde ureteropyelography contrast was instilled in retrograde fashion bilaterally. On the left hand side, there were no tumors, no stones, no diverticula. Calices were sharp and delicate. The ureter was unremarkable. Unobstructed drainage was observed fluoroscopically, J hooking was noted. The right hand side exhibited a blind-ending ureter with no filling defects and no suspicious lesions and unobstructed drainage. There was no reason to account for the patient's acute renal failure, which was identified preoperatively to his radical nephrectomy for his creatinine was approximately 2. The creatinine improved to near 1 during this postoperative course, but there was no evidence of obstruction to be able to explain this acute renal failure. The cystoscope was withdrawn. The resectoscope sheath with obturator was atraumatically placed. We utilized the bipolar loop to perform transurethral resection of prostate. Transurethral resection was carried out from the bladder neck to maneuver past the verumontanum down the surgical capsule. Pinpoint electrocautery was utilized to achieve hemostasis. All chips were evacuated and sent for histopathological evaluation. Brand catheter was placed. It was irrigated to and fro to ensure it worked properly, it was placed on for continuous irrigation. Belladonna and Opium suppository were placed revealing a large at least 40 g prostate, smooth, and nonfluctuant without any nodules. The patient was then uneventfully reversed from anesthesia and taken to recovery room in stable condition. There were no complications to the procedure. He tolerated the procedure well. We will monitor the patient during the postoperative course and of course ongoing urological followup. Plans will most likely be to discharge the patient home with a Brand catheter with a voiding trial done as an outpatient. Diego Nolan MD [facility]/MODL /[id number]
== END 2019-11-15 10:48 | disposition home health service (06) | DRG 657 ==
LOC: OR 10:59 → EDSTATUS 13:00 → IMCU 18:05 → MED/SURG 11-11 23:03
PROVIDERS: ADMIT Internal Medicine; ATTEND Internal Medicine
PROC: 0TJB8ZZ Inspection of Bladder, Via Natural or Artificial Opening Endoscopic (ICD-10-PCS; 2019-11-06)
PROC: 0T7D8DZ Dilation of Urethra with Intraluminal Device, Via Natural or Artificial Opening Endoscopic (ICD-10-PCS; 2019-11-06)
PROC: 30233N1 Transfusion of Nonautologous Red Blood Cells into Peripheral Vein, Percutaneous Approach (ICD-10-PCS; 2019-11-06)
PROC: BT141ZZ Fluoroscopy of Kidneys, Ureters and Bladder using Low Osmolar Contrast (ICD-10-PCS; 2019-11-06)
PROC: 30233N1 Transfusion of Nonautologous Red Blood Cells into Peripheral Vein, Percutaneous Approach (ICD-10-PCS; 2019-11-06)
PROC: 0TT00ZZ Resection of Right Kidney, Open Approach (ICD-10-PCS; principal; 2019-11-06 13:00)
PROC: 0W9930Z Drainage of Right Pleural Cavity with Drainage Device, Percutaneous Approach (ICD-10-PCS; 2019-11-06 13:00)
PROC: 30233N1 Transfusion of Nonautologous Red Blood Cells into Peripheral Vein, Percutaneous Approach (ICD-10-PCS; 2019-11-09)
PROC: 30233N1 Transfusion of Nonautologous Red Blood Cells into Peripheral Vein, Percutaneous Approach (ICD-10-PCS; 2019-11-12)
PROC: 0VT08ZZ Resection of Prostate, Via Natural or Artificial Opening Endoscopic (ICD-10-PCS; 2019-11-13)
PROC: BT141ZZ Fluoroscopy of Kidneys, Ureters and Bladder using Low Osmolar Contrast (ICD-10-PCS; 2019-11-13)
DX: C65.1 Malignant neoplasm of right renal pelvis (principal); D62 Acute posthemorrhagic anemia; N17.9 Acute kidney failure, unspecified; C77.2 Secondary and unspecified malignant neoplasm of intra-abdominal lymph nodes; J93.9 Pneumothorax, unspecified; N28.89 Other specified disorders of kidney and ureter; N18.3 Chronic kidney disease, stage 3 (moderate); D64.9 Anemia, unspecified; N40.0 Benign prostatic hyperplasia without lower urinary tract symptoms; N28.1 Cyst of kidney, acquired; Z87.442 Personal history of urinary calculi; N40.1 Benign prostatic hyperplasia with lower urinary tract symptoms; R39.14 Feeling of incomplete bladder emptying; R35.1 Nocturia; R39.16 Straining to void; R39.12 Poor urinary stream; N43.40 Spermatocele of epididymis, unspecified; Q55.22 Retractile testis; D41.01 Neoplasm of uncertain behavior of right kidney; E11.22 Type 2 diabetes mellitus with diabetic chronic kidney disease; I12.9 Hypertensive chronic kidney disease with stage 1 through stage 4 chronic kidney disease, or unspecified chronic kidney disease; E78.5 Hyperlipidemia, unspecified; D63.1 Anemia in chronic kidney disease; R31.0 Gross hematuria; Z11.59 Encounter for screening for other viral diseases; R31.9 Hematuria, unspecified
CPT/HCPCS: 36415; 51700; 71045; 71046; 74420; 80048; 80053; 82607; 82746; 83036; 83540; 83735; 84100; 84443; 84466; 85025; 85610; 85730; 86850; 86900; 86920; 88304; 88305; 88307; 88309; 88342; 93005; 96361; 97139; C1758; J0690; J1100; J1170; J1756; J1940; J2001; J2270; J2370; J2405; J2543; J2710; J3475; J7030; J7050; P9016; U0002

== ENCOUNTER → 2019-11-16 | Outpatient (CLI) | payer MEDICARE ==
[~2019-11-16] MED LIST changes: +TYLENOL WITH C1 EACH PO
--- NOTE | 2019-11-16 16:41 | Diagnostic Imaging Report ---
Examination: PA and lateral view of the chest. COMPARISON: None. INDICATION: renal pelvis malignancy DISCUSSION: Lines/tubes: None. Lungs: The lungs are well inflated and clear. No pneumonia or pulmonary edema. Pleura: No pleural effusion or pneumothorax. Heart and mediastinum: The heart and the mediastinum are unremarkable. Bones and soft tissues: No acute bony abnormalities. IMPRESSION: 1. No acute cardiopulmonary abnormalities. Signed by: Dr. James Wild M.D. on 11/16/2019 4:38 PM
== END ==
LOC: RAD 15:45
PROVIDERS: ATTEND Urology
DX: C65.1 Malignant neoplasm of right renal pelvis (principal)
CPT/HCPCS: 71046

== ENCOUNTER 2019-11-26 02:32 | Emergency (ER) | payer MEDICARE ==
[~2019-11-26] VITALS: Ht 170.2 cm; Wt 72.6 kg
[2019-11-26] MEDS ORDERED: ACETAMINOPHEN 325 MG TAB PO ONE (02:45)
--- NOTE | 2019-11-26 02:46 | Emergency Department Note ---
History of Present Illnes History of Present Illness Chief Complaint: General Medicine Complaints History of Present Illness This is a 69 year old male Chief Complaint Comment pt came from residence for c/o fever and abdominal pain, onset @ 0200, highest recorded temperature at home was 104, pt recenly tested negative for COVID-19 . 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 Any updates have been documented here. Past Medical History Recent Fever: Yes Clinical Suspicion of Infectio: Yes New/Unexplained Change in Ment: No Past Medical History: Hypertension, Cancer Past Surgical History: Back Surgery Other Surgery: kidney removal 11/06/2019 Other Last Tetanus: UNK Review of Systems Review of Systems Constitutional: Reports no symptoms EENTM: Reports no symptoms Cardiovascular: Reports no symptoms Respiratory: Reports no symptoms Gastrointestinal: Reports no symptoms Genitourinary: Reports no symptoms Musculoskeletal: Reports no symptoms Integumentary: Reports no symptoms Neurological: Reports no symptoms Psychological: Reports no symptoms Endocrine: Reports no symptoms Hematological/Lymphatic: Reports no symptoms Physical Exam Related Data Allergies: Coded Allergies: No Known Allergies (Unverified , 10/23/19) Triage Vital Signs Vital Signs Date Time Temp Pulse Resp B/P (MAP) Pulse Ox O2 Delivery O2 Flow Rate FiO2 11/26/19 02:39 102.7 114 18 127/71 98 Room Air Vital signs reviewed: Yes Physical Exam CONSTITUTIONAL Constitutional: Present well-developed, Present well-nourished HENT HENT: Present normocephalic, Present atraumatic, Present oropharynx clear/moist, Present nose normal HENT L/R: Present left ext ear normal, Present right ext ear normal EYES Eyes: Reports PERRL, Reports conjunctivae normal NECK Neck: Present ROM normal PULMONARY Pulmonary: Present effort normal, Present breath sounds normal CARDIOVASCULAR Cardiovascular: Present regular rhythm, Present heart sounds normal, Present capillary refill normal, Present normal rate GASTROINTESTINAL Abdominal: Present soft, Present nontender, Present bowel sounds normal, Present other (Large inscisional scar to R flank, no erythema or warmth) GENITOURINARY Genitourinary: Present exam deferred SKIN Skin: Present warm, Present dry MUSCULOSKELETAL Musculoskeletal: Present ROM normal NEUROLOGICAL Neurological: Present alert, Present oriented x 3, Present no gross motor or sensory deficits PSYCHOLOGICAL Psychological: Present mood/affect normal, Present judgement normal Results Laboratory Lab results reviewed: Yes Imaging Imaging results reviewed: Yes Procedures 12 Lead ECG Interpretation ECG Interpretation : Rhythm: sinus rhythm Rate: tachycardia BPM: 103 QRS axis: normal ST segments normal: Yes T waves normal: Yes Clinical Impression: non-specific ECG Assessment & Plan Medical Decision Making MDM 69-year-old male with past medical history of kidney cancer status post nephrectomy presents emergency department for fever. He endorses some dysuria as well. Denies any other symptoms but does have some chronic abdominal pain which is unchanged. Labs and imaging significant for urinary tract infection. Patient was initially febrile and mildly tachycardic which largely resolved with Tylenol and fluids. UA shows blood but this is chronic in nature and doubt nephrolithiasis. Urine culture sent and he was given 1 g of Rocephin in the emergency department. I discussed management with patient and he will be discharged home with Keflex. He'll follow up with his urologist or return to the emergency department for new or worsening symptoms. The patient is appropriate for discharge. Reassessment Reassessment time: 04:16 Reassessment Well appearing, NAD Assessment & Plan Final Impression: (1) UTI (urinary tract infection) Depart Disposition: HOME, SELF-CARE Last Vital Signs Date Time Temp Pulse Resp B/P (MAP) Pulse Ox O2 Delivery O2 Flow Rate FiO2 11/26/19 02:39 102.7 114 18 127/71 98 Room Air Home Meds Active Scripts Cephalexin Monohydrate (KEFLEX) 500 Mg Capsule, 500 MG PO QID for 14 Days, #56 TAB 0 Refills Prov:JERMAINE HENDERSON MD 11/26/19 Reported Medications Acetaminophen With Codeine (TYLENOL WITH CODEINE #3 TABLET) 1 Each Tablet, 300 MG PO Q4HR, TAB 11/06/19 Tamsulosin Hcl* (FLOMAX*) 0.4 Mg Cap, 0.4 MG PO TID, #30 CAP 10/28/19 Atorvastatin Calcium (ATORVASTATIN CALCIUM) 10 Mg Tablet, 10 MG PO DAILY, #30 TAB 10/28/19 Medications in the ED Acetaminophen 975 mg ONCE ONCE PO ; Start 11/26/19 at 02:45; Stop 11/26/19 at 02:46 JERMAINE HENDERSON MD Nov 26, 2019 02:46
[2019-11-26] MEDS ORDERED: SODIUM CHLORIDE 0.9% 1000ML 1,000 ML IV SCH (03:00)
[2019-11-26 03:11] LABS: BASOPHILS % 0.3 % (0.0-1.0); EOSINOPHILS # (AUTO) 0.1 (0.0-0.4); EOSINOPHILS % 0.7 % (0.0-6.0); HEMATOCRIT 27.3 % (38.2-49.6); HEMOGLOBIN 8.8 g/dL (14.0-18.0); LYMPHOCYTES # (AUTO) 0.9 (1.0-3.2); LYMPHOCYTES % 12.1 % (18.0-39.1); MEAN CORPUSCULAR HGB CONC 32.2 g/dL (31-35); MEAN CORPUSCULAR VOLUME 90.1 fL (81-99); MONOCYTES # (AUTO) 0.6 (0.2-0.8); MONOCYTES % 8.9 % (4.4-11.3); NEUTROPHILS # (AUTO) 5.6 (2.1-6.9); NEUTROPHILS % 77.6 % (38.7-80.0); PLATELET COUNT 261 x10e3/uL (140-360); RED BLOOD COUNT 3.03 x10e6/uL (4.3-5.7); RED CELL DISTRIBUTION WIDTH 13.2 % (11.7-14.4)
--- OUTSIDE RECORDS SUMMARY | 2019-11-26 03:13 | XMS REPORT | Continuity of Care Document ---
Author Author [facility] t Organization [facility] Address [facility] Prasanth Sandoval [address] [place] [address] Phone Unavailable Care Team Providers Care Fountain Worker Name Role Phone NONSTAFF PCP Unavailable HAMPEBeatrice, ROXANN Attphys Unavailable ABEL DOMINGO Attphys Unavailable PRIETO HEARN Attphys Unavailable SWEET, A LAIRD Attphys Unavailable ABEL DOMINGO Admphys Unavailable PRIETO HEARN Admphys Unavailable Payers Payer Name Policy Type Policy Number Effective Date Expiration Date Whitley f[facility] Medicare Complete [id number] 2018 00:00:00 [facility] Problems Condition Name Condition Details Condition Category Status Onset Date Resolution Date Last Treatment Date Treating Clinician Comments Source Hematuria Problem Active [facility] Urinary tract infection Problem Active [facility] Allergies, Adverse Reactions, Alerts Allergy Name Allergy Type Status Severity Reaction(s) Onset Date Inacti ve Date Treating Clinician Comments Source Penicillin Allergy to substance Active 2019-10-09 00:00:00 [facility] Social History Social Habit Start Date Stop Date Quantity Comments Source Sex Assigned At 1950 00:00:00 1950 00:00:00 Male [facility] Medications This patient has no known medications. Vital Signs Vital Name Observation Time Observation Value Comments Source Weight 2019-10-09 12:12:00 212 [lb_av] [facility] BMI (Body Mass Index) 2019-10-09 12:12:00 31.3 kg/m2 [facility] Procedures Procedure Date / Time Performed Performing Clinician Sourc e Computed tomography of abdomen and pelvis without then with contrast 2019-10-09 00:00:00 [facility] Ultrasound, renal 2019-05-26 00:00:00 [facility] Magnetic resonance imaging of abdomen without then wit h contrast 2019-05-17 00:00:00 [facility] Testicular ultrasound 2019-03-24 00:00:00 [facility] Dup-scan artl alvarez abdl/pel/scrot&/RPR orgn lmt 2019-03-24 00:00: 00 [facility] Computed tomography of abdomen and pelvis without then with contrast 2019-03-24 00:00:[address] [facility] [address] of abdomen and pelvis without contrast 2019-03-16 00:00:00 [facility] Plan of Care Planned Activity Planned Date Details Comments Source Instructions Hematuria - Male [facility] Instructions Urinary Tract Infection - Men [facility] Encounters Start Date/Time End Date/Time Encounter Type Admission Type Attendi [facility] Care Department Encounter ID Source 2019-10-09 13:14:00 2019-10-09 17:15:00 Departed Emergency Room 1 KEKE NIELSEN [facility] [id number] [facility] 2019-06-30 08:26:00 2019-06-30 08:26:00 Registered Clinic 3 FRANCISCO [facility] [id number] [facility] 2019-05-26 08:47:00 2019-05-26 08:47:00 Registered Clinic 3 FRANCISCO [facility] [id number] [facility] 2019-05-17 12:23:00 2019-05-17 12:23:00 Registered Clinic 3 FRANCISCO [facility] [id number] [facility] 2019-04-25 08:28:00 2019-04-25 08:28:00 Registered Clinic 3 FRANCISCO [facility] [id number] [facility] 2019-03-24 08:21:00 2019-03-24 08:21:00 Registered Clinic 3 ROXANN SCHAEFER [facility] [id number] [facility] 2019-03-16 10:18:00 2019-03-16 10:18:00 Registered Emergency Room 1 KEKE NIELSEN [facility] [id number] [facility] Results Test Description Test Time Test Comments Results Result Comments Source CHEST 2 VIEWS 2019-11-16 16:36:00 [facility] [address] [address] Patient Name: TONYA YORK III MR #: [id number] : 1950 Age/Sex: 69/M Req #: [id number] Adm Physician: Ordered by: ROXANN WELLS MD Report #: [id number] Location: RAD Room/Bed: Procedure: [id number] DX/CHEST 2 VIEWS Exam Date: 11/16/19 Exam Time: 1610 REPORT STATUS: Signed Examination: PA and lateral view of the chest. COMPARISON: None. INDICATION: renal pelvis malignancy DISCUSSION: Lines/tubes: None. Lungs: The lungs are well inflated and clear. No pneumonia or pulmonary edema. Pleura: No pleural effusion or pneumothorax. Heart and mediastinum: The heart and the mediastinum are unremarkable. Bones and soft tissues: No acute bony abnormalities. IMPRESSION: 1. No acute cardiopulmonary abnormalities. Signed by: Dr. Jessenia Lane M.D. on 11/16/2019 4:38 PM Dictated By: JESSENIA LANE MD 1638 Transcribed By: HONEY on 11/16/19 1638 COPY TO: ROXANN WELLS MD CHEST SINGLE (PORTABLE) 2019-11-10 10:26:00 [address] [address] Patient Name: TONYA YORK III MR #: [id number] : 1950 Age/Sex: 69/M Req #: [id number] Adm Physician: ABEL DOMINGO MD Ordered by: ROXANN WELLS MD Report #: [id number] Location: MED/SURG Room/Bed: [facility] Procedure: [id number] DX/CHEST SINGLE (PORTABLE) Exam Date: 11/10/19 Exam Time: 930 REPORT STATUS: Signed EXAMINATION: CHEST SINGLE (PORTABLE) INDICATION: Chest tube removal COMPARISON: Multiple prior chest radiographs, most recently 11/08/2019 FINDINGS: LINES/TUBES:None LUNGS:The lungs are well-inflated. No focal consolidation or pulmonary edema. PLEURA:No pleural effusion or pneumothorax. MEDIASTINUM:The cardiomediastinal silhouette appears normal in size and shape. BONES/SOFT TISSUES:No acute osseous injury. ABDOMEN:No free air under the diaphragm. IMPRESSION: No pneumothorax status post right chest tube removal. Signed by: Sierra Chong MD on 11/10/2019 10:27 AM Dictated By: SIERRA CHONG MD 1027 Transcribed By: HONEY on 11/10/19 1027 COPY TO: ROXANN WELLS MD CHEST SINGLE (PORTABLE) 2019-11-09 08:32:00 [address] [place] [address] Patient Name: TONYA YORK III #: [id number] : 1950 Age/Sex: 69/M Req #: [id number] Adm Physician: ABEL DOMINGO MD Ordered by: JANINE CHRISTIAN MD Report #: [id number] Location: [facility] Room/Bed: [address] [address] Procedure: [id number] DX/CHEST SINGLE (PORTABLE) Exam Date: 11/09/19 Exam Time: 0440 REPORT STATUS: Signed X-ray chest AP portable [...] CHRISTIAN MD CHEST SINGLE (PORTABLE) 2019-11-08 10:58:00 [address] [place] [address] Patient Name: TONYA YORK III MR #: [id number] : 1950 Age/Sex: 69/M Req #: [id number] Adm Physician: ABEL DOMINGO MD Ordered by: JANINE CHRISTIAN MD Report #: [id number] Location: [facility] Room/Bed: [address] [address]- Procedure: [id number] DX/CHEST SINGLE (PORTABLE) Exam Date: 11/08/19 Exam [...] STARKS MD 105 Transcribed By: HONEY on 11/08/19 105 COPY TO: JANINE CHRISTIAN MD CHEST SINGLE (PORTABLE) 2019-11-08 08:17:00 [place] [address] Patient Name: TONYA YORK III MR #: [id number] : 1950 Age/Sex: 69/M Req #: [id number] Adm Physician: ABEL DOMINGO MD Ordered by: ROXANN WELLS MD Report #: [id number] Location: [facility] Room/Bed: [address] [address] Procedure: DX/CHEST SINGLE (PORTABLE) Exam Date: 11/08/19 Exam [...] WELLS MD CHEST SINGLE (PORTABLE) 2019-11-07 08:24:00 [address] [place] [address] Patient Name: TONYA YORK III MR #: [id number] : 1950 Age/Sex: 69/M Req #: [id number] Adm Physician: ROXANN WELLS MD Ordered by: ROXANN WELLS MD Report #: [id number] Location: [facility] Room/Bed: [address] [address] Procedure: DX/CHEST SINGLE (PORTABLE) Exam Date: 11/07/19 Exam [...] WELLS MD CHEST SINGLE (PORTABLE) 2019-11-06 18:48:00 [address] [place] [address] Patient Name: TONYA YORK III MR #: [id number] : 1950 Age/Sex: 69/M Req #: [id number] Adm Physician: ROXANN WELLS MD Ordered by: ROXANN WELLS MD Report #: [id number] Location: [facility] Room/Bed: [address] [place] [address] Procedure: [id number] DX/CHEST SINGLE (PORTABLE) Exam Date: 11/06/19 Exam [...] WELLS MD CHEST 2 VIEWS 2019-11-02 14:50:00 [address] [place] [address] Patient Name: TONYA YORK III MR #: [id number] : 1950 Age/Sex: 69/M Req #: [id number] Adm Physician: Ordered by: ROXANN WELLS MD Report #: [id number] Location: OR Room/Bed: Procedure: [id number] DX/CHEST 2 VIEWS Exam Date: 11/02/19 Exam [...] 2:51 PM Dictated By: SIERRA CHONG MD 50 Transcribed By: HONEY on 11/02/191450 COPY TO: ROXANN WELLS MD CT ABDOMEN/PELVIS WO 2019-10-28 03:25:00 [facility] [address] [address] Patient Name: TONYA YORK III MR #: [id number] : 1950 Age/Sex: 69/M Req #: [id number] Adm Physician: PRIETO HEARN MD Ordered by: VIOLA DALEY MD Report #: [id number] Location: MED/SURG Room/Bed: [facility] Procedure: [id number] CT/CT ABDOMEN/PELVIS WO Exam Date: 10/28/19 Exam [...] FNA CT GUIDED 1ST LESION 2019-10-23 16:05:00 [address] [place] [address] Patient Name: TONYA YORK III MR #: [id number] : 1950 Age/Sex: 69/M Req #: [id number] Adm Physician: Ordered by: ROXANN WELLS MD Report #: [id number] Location: CT Room/Bed: Procedure: IR/FNA CT GUIDED 1ST LESION Exam Date: 10/23/19 Exam Time: 2 REPORT STATUS: Signed PROCEDURE: CT-guided biopsy Procedural [...] needle: 17 gauge Core needle biopsy device: Treatsie Core needle size: 18 gauge Number of [...] on 10/23/191606 COPY TO: ROXANN WELLS MD BIOPSY LYMPH NODE 2019-10-23 16:05:00 [address] [place] [address] Patient Name: TONYA YORK III MR #: [id number] : 1950 Age/Sex: 69/M Req #: [id number] Adm Physician: Ordered by: ROXANN WELLS MD Report #: [id number] Location: [place] Room/Bed: Procedure: IR/BIOPSY LYMPH NODE Exam Date: 10/23/19 Exam Time: 133 REPORT STATUS: Signed PROCEDURE: CT-guided biopsy Procedural [...] needle: 17 gauge Core needle biopsy device: Treatsie Core needle size: 18 gauge Number of [...] WELLS MD CT ABDOMEN/PELVIS WOW 2019-10-09 15:18:00 [address] [place] [address] Patient Name: TONYA YORK III MR #: [id number] : 1950 Age/Sex: 69/M Req #: [id number] Adm Physician: Ordered by: KEKE NIELSEN MD Report #: [id number] Location: ER Room/Bed: Procedure: [id number] CT/CT ABDOMEN/PELVIS WOW Exam Date: 10/09/19 Exam [...] 3:53 PM Dictated By: SIERRA CHONG MD 086 Transcribed By: HONEY on 10/09/19 730 COPY TO: KEKE NIELSEN MD Blood leukocytes automated count (number/volume) 2019-10-09 13:00:00 Test Item White Blood Count (test code = 6690-2) 6.16 4.8-10.8 [facility] erythrocytes automated count (number/volume)2019-10-09 13:00:00* Test Item Value Reference Range Interpretation Comments Red Blood Count (test code = 789-8) 4.29 4.3-5.7 [facility] HospitalBlood hemoglobin measurement (moles/volume)2019-10-09 13:00:00* Test Item Value Reference Range Interpretation Comments Hemoglobin (test code = 76088-2) 12.8 14.0-18.0 [facility] HospitalAutomated blood hematocrit (volume fraction)2019-10-09 13:00:00* Test Item Value Reference Range Interpretation Comments Hematocrit (test code = 4544-3) 38.8 38.2-49.6 [facility] HospitalAutomated erythrocyte mean corpuscular tpvcvt7024-30-39 13:00:00* Test Item Value Reference Range Interpretation Comments Mean Corpuscular Volume (test code = 787-2) 90.4 81-99 [facility] HospitalAutomated erythrocyte mean corpuscular hemoglobin (mass per erythrocyte)2019-10-09 13:00:00* Test Item Value Reference Range Interpretation Comments Mean Corpuscular Hemoglobin (test code = 785-6) 29.8 28-32 [facility] HospitalAutomated erythrocyte mean corpuscular hemoglobin concentration measurement (mass/volume)2019-10-09 13:00:00* Test Item Value Reference Range Interpretation Comments Mean Corpuscular Hemoglobin Concent (test code = 786-4) 33.0 31-35 [facility] HospitalRDW IoiJr-Jyi4029-45-29 13:00:00* Test Item Value Reference Range Interpretation Comments Red Cell Distribution Width (test code = 88438-8) 12.7 11.7 -14.4 [facility] HospitalAutomated blood platelet count (count/volume)2019-10-09 13:00:00* Test Item Value Reference Range Interpretation Comments Platelet Count (test code = 777-3) 240 140-360 [facility] segmented neutrophil count as percentage of total xtehslfnat7753-80-79 13:00:00* Test Item Value Reference Range Interpretation Comments Neutrophils (%) (Auto) (test code = 57075-3) 67.6 38.7-80.0 [facility] HospitalAutcape fear/harnett healthed blood lymphocyte count as percentage ot total fuibupmaip2808-72-79 13:00:00* Test Item Value Reference Range Interpretation Comments Lymphocytes (%) (Auto) (test code = 736-9) 21.3 18.0-39.1 [facility] HospitalAutomated blood monocyte count as percentage of total ddjaiyzqmd4262-83-44 13:00:00* Test Item Value Reference Range Interpretation Comments Monocytes (%) (Auto) (test code = 5905-5) 8.3 4.4-11.3 [facility] HospitalAutomated blood eosinophil count as percentage of total khkmbyehxh0863-51-52 13:00:00* Test Item Value Reference Range Interpretation Comments Eosinophils (%) (Auto) (test code = 713-8) 1.8 0.0-6.0 [facility] HospitalAutomated blood basophil count as percentage of total faimahegyn6218-15-10 13:00:00* Test Item Value Reference Range Interpretation Comments Basophils (%) (Auto) (test code = 706-2) 0.5 0.0-1.0 [facility] HospitalFluoroscopic procedure less than one hour qzqcpiky7306-49-81 13:00:00* Test Item Value Reference Range Interpretation Comments IM GRANULOCYTES % (test code = IM GRANULOCYTES %) 0.5 0.0- 1.0 [facility] HospitalAutomated blood neutrophil count 2019-10-09 13:00:00* Test Item Value Reference Range Interpretation Comments Neutrophils # (Auto) (test code = 751-8) 4.2 2.1-6.9 [facility] HospitalBlood lymphocytes count (number/volume) 2019-10-09 13:00:00* Test Item Value Reference Range Interpretation Comments Lymphocytes # (Auto) (test code = 96692-2) 1.3 1.0-3.2 [facility] HospitalBlood monocytes automated count (number/volume)2019-10-09 13:00:00* Test Item Value Reference Range Interpretation Comments Monocytes # (Auto) (test code = 742-7) 0.5 0.2-0.8 [facility] HospitalAutomated blood eosinophil count 2019-10-09 13:00:00* Test Item Value Reference Range Interpretation Comments Eosinophils # (Auto) (test code = 711-2) 0.1 0.0-0.4 [facility] HospitalAutomated blood basophil count (count/volume)2019-10-09 13:00:00* Test Item Value Reference Range Interpretation Comments Basophils # (Auto) (test code = 704-7) 0.0 0.0-0.1 [facility] HospitalFluoroscopic procedure less than one hour oukhmxfv5954-62-53 13:00:00* Test Item Value Reference Range Interpretation Comments Absolute Immature Granulocyte (auto (barbie t code = Absolute Immature Granulocyte (auto) 0.03 0-0.1 [facility] HospitalProthrombin time (PT) in platelet poor plasma by coagulation xnogj5432-18-74 13:00:00* Test Item Value Reference Range Interpretation Comments Prothrombin Time (test code = 5902-2) 13.3 11.9-14.5 [facility] HospitalINR in Platelet poor plasma by Coagulation bmdss7941-11-84 13:00:00* Test Item Value Reference Range Interpretation Comments Prothromb Time International Ratio (test code = 6301-6) 0.96 Oral Anticoagulant Therapy INR Values:1. Low Intensity Therapy 1.5 - 2.02 . Moderate Intensity Therapy 2.0 - 3.03. High Intensity Therapy(1) 2.5 - 3. 54. High Intensity Therapy(2) 3.0 - 4.05. Panic Value INR > 5.0 [facility] HospitalActivated partial thromboplastin time (aPTT) in platelet poor plasma by coagulation rcnoj8633-96-62 13:00:00* Test Item Value Reference Range Interpretation Comments Activated Partial Thromboplast Time (test code = 33850-2) 36.3 23.8-35.5 [facility] sodium measurement (moles/volume)2019-10-09 13:00:00* Test Item Value Reference Range Interpretation Comments Sodium Level (test code = 2951-2) 137 136-145 [facility] potassium measurement (moles/volume)2019-10-09 13:00:00* Test Item Value Reference Range Interpretation Comments Potassium Level (test code = 2823-3) 4.8 3.5-5.1 [facility] chloride measurement (moles/volume)2019-10-09 13:00:00* Test Item Value Reference Range Interpretation Comments Chloride Level (test code = 2075-0) 103 98-107 [facility]ererum or plasma carbon dioxide, total measurement (moles/volume)2019-10-09 13:00:00* Test Item Value Reference Range Interpretation Comments Carbon Dioxide Level (test code = 2028-9) 26 22-29 [facility] or plasma anion bdz5865-98-73 13:00:00* Test Item Value Reference Range Interpretation Comments Anion Gap (test code = 29767-6) 12.8 8-16 [facility] or plasma urea nitrogen measurement (mass/volume)2019-10-09 13:00:00* Test Item Value Reference Range Interpretation Comments Blood Urea Nitrogen (test code = 3094-0) 15 7-26 [facility]ere[facility] or plasma creatinine measurement (mass/volume)2019-10-09 13:00:00* Test Item Value Reference Range Interpretation Comments Creatinine (test code = 2160-0) 1.40 0.72-1.25 [facility]ere[facility] or plasma urea nitrogen/creatinine mass tegzs6690-61-10 13:00:00* Test Item Value Reference Range Interpretation Comments BUN/Creatinine Ratio (test code = 3097-3) 11 6-25 [facility] HospitalEstimated glomerular filtration rate (GFR) gsnotajytoinc2192-63-42 13:00:00* Test Item Value Reference Range Interpretation Comments Estimat Glomerular Filtration Rate (test code = 294923517) 51 >60 Ranges were taken from the National Kidney Disease Education Program and the [facility] [employer] literature.Reference ranges:60 or greater: Rhfoko80-47 ( for 3 consecutive months): Chronic kidney disease 15 or less: Kidney failureHouston Methodist Clear Lake HospitalGlucose xejhvfqtzvd3270-58-86 13:00:00* Test Item Value Reference Range Interpretation Comments Glucose Level (test code = PBK0977) 96 74-118 [facility] or plasma calcium measurement (mass/volume)2019-10-09 13:00:00* Test Item Value Reference Range Interpretation Comments Calcium Level (test code = 07893-8) 10.1 8.4-10.2 [facility] or plasma total bilirubin measurement (mass/volume)2019-10-09 13:00:00* Test Item Value Reference Range Interpretation Comments Total Bilirubin (test code = 1975-2) 0.6 0.2-1.2 [facility] HospitalFluoroscopic procedure less than one hour vqsskcad1736-36-61 13:00:00* Test Item Value Reference Range Interpretation Comments Aspartate Amino Transf (AST/SGOT) (test code = Aspartate Amino Transf (AST/SGOT)) 23 5-34 [facility]ererum or plasma alanine aminotransferase measurement (enzymatic activity/volume)2019-10-09 13:00:00* Test Item Value Reference Range Interpretation Comments Alanine Aminotransferase (ALT/SGPT) (test code = 1742-6) 16 0-55 [facility]ere[facility] or plasma protein measurement (mass/volume)2019-10-09 13:00:00* Test Item Value Reference Range Interpretation Comments Total Protein (test code = 2885-2) 8.2 6.5-8.1 [facility]ere[facility] or plasma albumin measurement (mass/volume)2019-10-09 13:00:00* Test Item Value Reference Range Interpretation Comments Albumin (test code = 1751-7) 4.2 3.5-5.0 [facility] HospitalPlasma globulin measurement (mass/volume) 2019-10-09 13:00:00* Test Item Value Reference Range Interpretation Comments Globulin (test code = 96013-1) 4.0 2.3-3.5 [facility] or plasma albumin/globulin mass qiaox3354-83-93 13:00:00* Test Item Value Reference Range Interpretation Comments Albumin/Globulin Ratio (test code = 1759-0) 1.1 0.8-2.0 [facility] or plasma alkaline phosphatase measurement (enzymatic activity/volume)2019-10-09 13:00:00* Test Item Value Reference Range Interpretation Comments Alkaline Phosphatase (test code = 6768-6) 111 40-150 [facility] HospitalUrine color dfkhtmhxzxnly9293-21-03 12:15:00* Test Item Value Reference Range Interpretation Comments Urine Color (test code = 5778-6) YELLOW YELLOW [facility] HospitalUrine ejtvxjt1828-28-18 12:15:00* Test Item Value Reference Range Interpretation Comments Urine Clarity (test code = 42393-3) SL CLOUDY CLEAR [facility] Centerpecific gravity of Urine by Test strip 2019-10-09 12:15:00* Test Item Value Reference Range Interpretation Comments Urine Specific [place] (test code = 5811-5) 1.020 1.010-1.02 5 [facility] HospitalUrine pH measurement by automated test hqiku1541-00-86 12:15:00* Test Item Value Reference Range Interpretation Comments Urine pH (test code = 58338-5) 6 5-7 [facility] HospitalUrine leukocyte esterase detection by kblqljsv0112-37-75 12:15:00* Test Item Value Reference Range Interpretation Comments Urine Leukocyte Esterase (test code = 5799-2) TRACE NEGATIVE [facility] HospitalUrine nitrite ahljtwybm2784-43-34 12:15:00* Test Item Value Reference Range Interpretation Comments Urine Nitrite (test code = 47139-6) NEGATIVE NEGATIVE [facility] HospitalUrine protein measurement by test strip (mass/volume)2019-10-09 12:15:00* Test Item Value Reference Range Interpretation Comments Urine Protein (test code = 5804-0) >=300 NEGATIVE [facility] HospitalUrine glucose zguhetmda0620-78-15 12:15:00* Test Item Value Reference Range Interpretation Comments Urine Glucose (UA) (test code = 2349-9) NEGATIVE NEGATIVE [facility] HospitalUrine ketones detection by automated test cfemu7047-37-95 12:15:00* Test Item Value Reference Range Interpretation Comments Urine Ketones (test code = 51821-1) NEGATIVE NEGATIVE [facility] HospitalUrine urobilinogen measurement by test strip (mass/volume)2019-10-09 12:15:00* Test Item Value Reference Range Interpretation Comments Urine Urobilinogen (test code = 34949-1) 0.2 0.2-1 [facility] HospitalUrine total bilirubin measurement (mass/volume)2019-10-09 12:15:00* Test Item Value Reference Range Interpretation Comments Urine Bilirubin (test code = 1978-6) SMALL NEGATIVE [facility] HospitalUrine erythrocytes qdyvlnfyz1322-01-80 12:15:00* Test Item Value Reference Range Interpretation Comments Urine Blood (test code = 33652-2) LARGE NEGATIVE [facility] HospitalAutomated urine sediment leukocyte count by microscopy (number/high power field)2019-10-09 12:15:00* Test Item Value Reference Range Interpretation Comments Urine WBC (test code = 5821-4) 6-10 0-5 [facility] HospitalErythrocytes detection in urine sediment by light efblagkbzu7195-08-20 12:15:00* Test Item Value Reference Range Interpretation Comments Urine RBC (test code = 09265-2) 21-50 0-5 [facility] HospitalBacteria detection in urine sediment by light fcfjtqkrpg9394-91-53 12:15:00* Test Item Value Reference Range Interpretation Comments Urine Bacteria (test code = 99875-6) RARE NONE [facility] HospitalEpithelial cells detection in urine sediment by light nwkoywrgid3132-54-86 12:15:00* Test Item Value Reference Range Interpretation Comments Urine Epithelial Cells (test code = 59163-6) RARE NONE [facility] HospitalBIOPSY AHOCW3312-39-37 13:27:00 [facility] [address] [place] [address] Patient Name: TONYA YORK III MR #: [id number] : 04/1950 Age/Sex: 68/M Req #: [id number] Adm Physician: Ordered by: ROXANN WELLS MD Report #: [id number] Location: [place] Room/Bed: Procedure: [id number] IR /BIOPSY RENAL Exam Date: 06/30/19 Exam [...] mass. Plan: Specimen(s) sent for evalu ation. MD OCEDURE SUMMARY: - Percutaneous US-guided coaxial core [...] needle: 17 gauge Core needle biopsy device: Treatsie Core needle size: 18 gauge Number of [...] COPY TO: ROXANN WELLS MD RENAL RETROPERITONEAL [id number] 12:39:00 [place] [address] Patient Name: TONYA YORK III MR #: [id number] : 1950 Age/Sex: 68/M Req #: [id number] Adm Physician: Ordered by: ROXANN WELLS MD Report #: [id number] Location: Room/Bed: Procedure: [id number] US /US RENAL RETROPERITONEAL COMP Exam Date: 05/26/19 E xam Time: 1050 REPORT STATUS: Patricia d Renal ultrasound, 05/26/2019. History: Right renal lesion. [...] 3:06 PM Dictated By: FLORENTINO DIAZ MD 1506 Transcribed By: HONEY on 05/26/19 1506 COPY TO: ROXANN SWAIN MD MRI ABDOMEN [id number] 16:22:00 [place] [address] Patient Name: TONYA YORK III MR #: [id number] : 1950 Age/Sex: 68/M Req #: [id number] Adm Physician: Ordered by: ROXANN WELLS MD Report #: [id number] Location: MRI Room/Bed: Procedure: [id number] MR I/MRI ABDOMEN WOW Exam Date: Exam [...] MD 105 Transcribed By: HONEY on 05/19/19 1051 COPY TO: ROXANN WELLS MD RENAL SCAN [id number] 14:07:00 [address] [place], [place] [address] Patient Name: TONYA YORK III MR #: [id number] : 04/1950 Age/Sex: 68/M Req #: [id number] [facility] Physician: Ordered by: ROXANN WELLS MD Report #: [id number] Location: [place] Room/Bed: Procedure: [id number] NM /RENAL SCAN W/LASIX Exam Date: Exam [...] ronically Signed By: KAVYA MEJIA MD on 04/25/191415 Transcribed By: HONEY on 04/25/191415 COPY TO: ROXANN WELLS MD CT ABDOMEN/PELVIS WOW 2019-03-24 16:15:00 [place] [address] Patient Name: TONYA YORK III MR #: [id number] : 1950 Age/Sex: 68/M Req #: [id number] Adm Physician: Ordered by: ROXANN WELLS MD Report #: [id number] Location: Room/Bed: Procedure: [id number] CT/C T ABDOMEN/PELVIS WOW Exam Date: 03/24/19 [...] 36 PM Dictated By: SACHIN CORNEJO MD 35 Transcribed By: HONEY on 03/24/191635 CO PY TO: ROXANN WELLS MD [id number] 16:02:00 [place] [address] Patient Name: TONYA YORK III MR #: [id number] : 1950 Age/Sex: 68/M Req #: [id number] Adm Physician: Ordered by: ROXANN WELLS MD Report #: [id number] Location: [place] Room/Bed: Procedure: [id number] US/U S TESTICULAR Exam Date: 03/24/19 Exam Time: 0944 REPORT STATUS: Signed HISTORY: S permatocele of epididymis, right testicular pain COMPARISON : COMMENT : Ultrasound examination of the genitalia was performed. In addition, Chauncey r Doppler and spectral analysis of the [...] COPY TO: ROXANN WELLS MD TESTICULAR DOPPLER [id number] 16:02:00 [place] [address] Patient Name: TONYA YORK III MR #: [id number] : 1950 Age/Sex: 68/M Req #: [id number] Adm Physician: Ordered by: ROXANN WELLS MD Report #: [id number] Location: [place] Room/Bed: Procedure: [id number] US/U S TESTICULAR DOPPLER LTD Exam Date: 03/24/19 Exam Ti me: 0944 REPORT STATUS: Signed HISTORY: Spermatocele of epididymis, right testicular pain COMPARISON : COMMENT : Ultrasound examination of the genitalia was performed. In ad didrew, Color Doppler and spectral analysis of the [...] COPY TO: ROXANN WELLS MD CT ABDOMEN/PELVIS [id number] 13:52:00 [place] [address] Patient Name: TONYA YORK III MR #: [id number] : 1950 Age/Sex: 68/M Req #: [id number] Adm Physician: Ordered by: KEKE NIELSEN MD Report #: [id number] Location: ER Room/Bed: Procedure: [id number] C T/CT ABDOMEN/PELVIS WO Exam Date: 03/16/19 [...] Signed By: SACHIN CORNEJO MD on 03/16/19 1357 Transcribed By: JC Fischer on 03/16/19 1356 COPY TO: KEKE NIELSEN MD
[2019-11-26] MEDS ORDERED: FENTANYL CITRATE/PF 100MCG/2 ML INJ IV PRN (03:15)
[2019-11-26 03:27] LABS: ALANINE AMINOTRANSFERASE 31 IU/L (0-55); ALBUMIN 2.9 g/dL (3.5-5.0); ALBUMIN/GLOBULIN RATIO 0.7 (0.8-2.0); ALKALINE PHOSPHATASE 295 IU/L (40-150); ANION GAP 16.9 mmol/L (8-16); BLOOD UREA NITROGEN 15 mg/dL (7-26); BUN/CREATININE RATIO 13 (6-25); CARBON DIOXIDE 22 mmol/L (22-29); CHLORIDE 98 mmol/L (98-107); CREATININE, SERUM 1.14 mg/dL (0.72-1.25); EST GLOMERULAR FILTRATION RATE > 60 ML/MIN (60-); GLUCOSE 121 mg/dL (74-118); POTASSIUM 4.9 mmol/L (3.5-5.1); SODIUM 132 mmol/L (136-145)
[2019-11-26 03:39] LABS: AMYLASE 65 U/L (25-125); LIPASE 30 U/L (8-78)
[2019-11-26 03:50] LABS: CLARITY,URINE TURBID (CLEAR); COLOR,URINE RED (YELLOW)
[2019-11-26 03:51] LABS: BACTERIA,URINE MODERATE /HPF; BILIRUBIN,URINE NEGATIVE (NEGATIVE); EPITHELIAL CELLS,URINE FEW /LPF; KETONES,URINE NEGATIVE (NEGATIVE); LEUKOCYTE ESTERASE ,URINE NEGATIVE (NEGATIVE); NITRITE,URINE NEGATIVE (NEGATIVE); PROTEIN,URINE DIPSTICK 2+ (NEGATIVE); RBC,URINE >50 /HPF (0-5); URINE UROBILINOGEN 0.2 mg/dL (0.2 - 1)
--- NOTE | 2019-11-26 04:01 | Diagnostic Imaging Report ---
EXAMINATION: CHEST 2 VIEWS INDICATION: ^Y ^FEVER ^[id number] ^0315 COMPARISON: 11/16/2019 FINDINGS: PA and lateral views TUBES and LINES: None. LUNGS: Lungs are well inflated. There is no evidence of pneumonia or pulmonary edema. PLEURA: No pleural effusion or pneumothorax. HEART AND MEDIASTINUM: The cardiomediastinal silhouette is unremarkable. BONES AND SOFT TISSUES: No acute osseous lesion. Soft tissues are unremarkable. UPPER ABDOMEN: No free air under the diaphragm. Unchanged mildly elevated right hemidiaphragm. IMPRESSION: No acute thoracic abnormality. No change from prior exam. Signed by: Dr. Mat Beauchamp MD on 11/26/2019 3:58 AM
[2019-11-26] MEDS ORDERED: CEFTRIAXONE SOD 1 GM/NS 50 ML 50 ML IV ONE (04:15)
[2019-11-26] MEDS ORDERED: KEFLEX500 MG PO (05:05)
--- NOTE | 2019-11-26 05:26 | Diagnostic Imaging Report ---
EXAM: CT Abdomen and Pelvis WITH contrast INDICATION: ^Y ^Fever, s/p Nephrectomy, abd pain ^[id number] ^0 COMPARISON: CT dated 10/28/2019 TECHNIQUE: Abdomen and pelvis were scanned utilizing a multidetector helical scanner from the lung base to the pubic symphysis after administration of IV contrast. Coronal and sagittal reformations were obtained. Dose modulation, iterative reconstruction, and/or weight based adjustment of the mA/kV was utilized to reduce the radiation dose to as low as reasonably achievable. Routine protocol was performed. Scan was performed when during portal venous phase. IV CONTRAST: 100 mL of Isovue-370 ORAL CONTRAST: Water COMPLICATIONS: None RADIATION DOSE: Total DLP: 540.69 mGy*cm Estimated effective dose: (DLP x 0.015 x size factor) mSv CTDIvol has been reviewed. It is below the limits set by the Radiation Protocol Committee (RPC). FINDINGS: LINES and TUBES: None. LOWER THORAX: Mild dependent atelectasis. HEPATOBILIARY: Interval increase in size and number of hepatic lesions, the largest in hepatic dome measuring at least 12.2 cm, previously 6.6 cm. No biliary ductal dilation. GALLBLADDER: No radio-opaque stones or sludge. No wall thickening. SPLEEN: No splenomegaly. PANCREAS: No focal masses or ductal dilatation. ADRENALS: Questionable 1.4 cm right adrenal nodule. No left adrenal nodule. KIDNEYS/URETERS: Interval right diaphragmatic committee. Complex fluid and few gas bubbles within right nephrectomy bed, extending along the right psoas muscle. Left kidney is unremarkable. No left hydronephrosis. No left renal stone. Unchanged left renal inferior pole exophytic cyst. GI TRACT: No abnormal distention, wall thickening, or evidence of bowel obstruction. There are diverticula within the colon without evidence of diverticulitis. Appendix is normal. PELVIC ORGANS/BLADDER: Bladder wall thickening and perivesical fat stranding. Small amount of intravesical air. LYMPH NODES: 3.1 x 3 cm aortocaval lymph node, appears a 2.4 x 2.2 cm. Multiple additional pericaval lymph nodes, increased in size from prior exam with obscuration of IVC at the level of lymphadenopathy, just inferior to the left renal vein. VESSELS: Obscuration of IVC as described above. No abdominal aortic aneurysm. PERITONEUM / RETROPERITONEUM: No free air or fluid. BONES: Unchanged grade 1 retrolisthesis of L5 in relation to L4, likely due to facet arthropathy. Unchanged L3 vertebral body sclerotic focus. SOFT TISSUES: Unremarkable. IMPRESSION: 1. Interval right nephrectomy. Complex fluid and trace air in right nephrectomy bed, extending along the right psoas muscle, likely phlegmonous material. No discrete fluid collection on current exam. 2. Interval progression of metastatic disease, marked by increase in size and number of metastatic hepatic lesions and retroperitoneal lymphadenopathy. 3. Bladder wall thickening and perivesical fat stranding, concerning for cystitis. Signed by: Dr. Mat Beauchamp MD on 11/26/2019 5:22 AM
== END 2019-11-26 05:40 | disposition home or self-care (01) ==
LOC: ER 02:42
DX: N39.0 Urinary tract infection, site not specified (principal); R50.9 Fever, unspecified; R30.0 Dysuria; R10.9 Unspecified abdominal pain; I10 Essential (primary) hypertension; Z85.528 Personal history of other malignant neoplasm of kidney
CPT/HCPCS: 36415; 71046; 74177; 80053; 81001; 82150; 83605; 83690; 85025; 87040; 87086; 99284